=== PATIENT | female | born 1935 | race Caucasian/White ===

== ENCOUNTER → 2016-06-19 | Outpatient (CLI) | payer OTHER ==
[~2016-06-19] MED LIST: AMLO-114 PO; AMOX500C3 PO; ASPI-461 PO; ATOR-54 PO; BIOT1CAP3 PO; CHOL2000 PO; CLOP1TAB5 PO; DVN80 PO; SULF800T23 PO
--- NOTE | 2016-06-19 09:31 | DIAGNOSTIC IMAGING REPORT ---
LUMBAR SPINE 5 VIEWS HISTORY: Lower back pain. Pseudoclaudication. COMPARISON: None. FINDINGS: There is no fracture. 3 mm of anterolisthesis of L4 and L5 and L5 on S1. Mild disc space and L5-S1. Minimal dextroscoliosis. The sacrum appears intact. Moderate to severe facet degenerative changes at L4-L5 and L5-S1. IMPRESSION: 1. No fractures within the lumbar spine. 2. Grade I anterolisthesis of L4 on L5 and L5 on S1. 3. Mild disc space narrowing at L5-S1. 4. Moderate to severe facet degenerative changes seen within the lower lumbar spine. Electronically signed by: Noah Bates M.D. 06/19/2016 9:30 AM Dictated Date/Time: 06/19/2016 9:26 AM
== END | disposition home or self-care (01) ==
LOC: C.RADBC 08:58
PROVIDERS: ATTEND Family Medicine
DX: M48.06 Spinal stenosis, lumbar region (principal); M47.896 Other spondylosis, lumbar region

== ENCOUNTER → 2016-08-21 | Outpatient (CLI) | payer OTHER ==
[~2016-08-21] VITALS: Ht 162.6 cm; Wt 77.0 kg
[~2016-08-21] MED LIST changes: +NAPR1CAP12 PO; +ULT50X PO
[2016-08-21 14:16] VITALS: Ht 162.6 cm; Wt 77.0 kg
--- NOTE | 2016-08-21 14:54 | PAT Medication Instructions ---
Service Date Aug 21, 2016. Current Home Medication List Amlodipine (Norvasc), 10 MG PO AFTERNOON Amoxicillin (Amoxil), 2,000 MG PO DAILY PRN for PRIOR TO DENTAL PROCEDURES Aspirin (Aspirin), 1 TAB PO QAM Atorvastatin (Lipitor), 20 MG PO HS Biotin (Biotin), 1 CAP PO QAM Cholecalciferol (Vitamin D3), 1 CAP PO QAM Valsartan (Diovan), 80 MG PO AFTERNOON Medication Instructions For Your Scheduled Surgery Amoxicillin (Amoxil), 2,000 MG PO DAILY PRN for PRIOR TO DENTAL PROCEDURES (due to history of knee replacements) - Hold the following medications 24 hours prior to surgery: Valsartan (Diovan), 80 MG PO AFTERNOON - Hold the following medications the morning of surgery: Cholecalciferol (Vitamin D3), 1 CAP PO QAM Biotin (Biotin), 1 CAP PO QAM - Take the following medications the morning of surgery with a sip of water: Aspirin (Aspirin), 81MG TAB PO QAM (okay to continue per surgeon) - Take the following medications as scheduled the afternoon before surgery: Atorvastatin (Lipitor), 20 MG PO HS Amlodipine (Norvasc), 10 MG PO AFTERNOON If you have any questions please call us at [phone] (Muna Linder PA-C) or [phone] or [phone]
[2016-08-21 15:54] LABS: BASO % 0.3 %; BASO ABS # 0.02 K/uL (0-0.2); COMPLETE YES; EOS % 1.5 %; HEMATOCRIT 39.7 % (37-47); IG% 0.3 %; LYMPH % 21.7 %; LYMPH ABS # 1.31 K/uL (1.2-3.4); MEAN CELL VOLUME 90.8 fL (80-100); MEAN CORPUSCULAR HEMOGLOBIN 30.4 pg (25-34); MEAN CORPUSCULAR HGB CONC 33.5 g/dl (32-36); MEAN PLATELET VOLUME 11.1 fL (7.4-10.4); MONO % 10.1 %; NEUT % 66.1 %; PLATELET COUNT 211 K/uL (130-400); RED BLOOD COUNT 4.37 M/uL (4.2-5.4); WHITE BLOOD COUNT 6.04 K/uL (4.8-10.8)
[2016-08-21 16:02] LABS: URINE APPEARANCE CLEAR (CLEAR); URINE BILIRUBIN NEG (NEG); URINE COLOR YELLOW; URINE NITRITE NEG (NEG); URINE SPECIFIC GRAVITY 1.015 (1.000-1.030); UROBILINOGEN NEG (NEG)
[2016-08-21 16:07] LABS: MANUAL MICROSCOPIC REQUIRED? NO; REVIEW REQ? NO
[2016-08-21 16:08] LABS: INR 0.9 (0.9-1.1); PROTHROMBIN TIME (PATIENT) 10.1 SECONDS (9.0-12.0)
[2016-08-21 16:46] LABS: BUN/CREATININE RATIO 25.3 (10-20); CALCIUM 9.4 mg/dl (8.5-10.1); CREATININE 0.77 mg/dl (0.60-1.20)
== END | disposition home or self-care (01) ==
LOC: C.LAB 08:00 → EDSTATUS 09-21 11:08
PROVIDERS: ATTEND Orthopaedic Surgery
DX: Z01.818 Encounter for other preprocedural examination (principal)

== ENCOUNTER → 2016-08-21 | Outpatient (CLI) | payer OTHER | END | disposition home or self-care (01) | LOC: C.CTS 13:04 | PROVIDERS: ATTEND Orthopaedic Surgery | DX: Z01.818 Encounter for other preprocedural examination (principal); M19.011 Primary osteoarthritis, right shoulder ==

== ENCOUNTER → 2016-09-25 | Outpatient (CLI) | payer OTHER ==
[~2016-09-25] MED LIST changes: -CLOP1TAB5 PO
--- NOTE | 2016-09-25 12:43 | DIAGNOSTIC IMAGING REPORT ---
LEFT HAND MIN 3 VIEWS ROUTINE CLINICAL HISTORY: R22.32 Localized swelling on left [id number] pain. Edema. COMPARISON: None. FINDINGS: Considerable degenerative change throughout. This includes all interphalangeal joints as well as metacarpophalangeal joints. Severe degenerative change first as well as second carpometacarpal joint. IMPRESSION: Significant degenerative change throughout the hand and wrist. Electronically signed by: Balwinder Tovar M.D. 09/25/2016 12:41 PM Dictated Date/Time: 09/25/2016 12:38 PM
== END | disposition home or self-care (01) ==
LOC: C.RADBC 12:06
PROVIDERS: ATTEND Family Medicine
DX: R22.32 Localized swelling, mass and lump, left upper limb (principal)

== ENCOUNTER 2016-09-26 17:24 | Emergency (ER) | payer OTHER ==
[~2016-09-26] VITALS: Ht 162.6 cm; Wt 77.7 kg
[~2016-09-26 17:24] MED LIST changes: -NAPR1CAP12 PO; -SULF800T23 PO; -ULT50X PO
[2016-09-26 17:29] VITALS: TEMP 36.6; Ht 162.6 cm; Wt 77.7 kg
--- NOTE | 2016-09-26 18:45 | DIAGNOSTIC IMAGING REPORT ---
LEFT HAND MIN 3 VIEWS ROUTINE CLINICAL HISTORY: l hand pain swelling pain. Edema. COMPARISON: None. DISCUSSION: Generalized degenerative change throughout. Soft tissue edema. No evidence for fracture or dislocation. IMPRESSION: Considerable degenerative change. Soft tissue edema. No acute bony abnormality. Electronically signed by: Balwinder Tovar M.D. 09/26/2016 6:44 PM Dictated Date/Time: 09/26/2016 6:42 PM
[2016-09-26] MEDS ORDERED: SULFAMETHOXAZOLE/TRIMETHOPRIM DS 800/160MG TAB PO STA (18:55)
[2016-09-26] MEDS ORDERED: SULF800T23 PO (18:58)
[2016-09-26 19:13] VITALS: BP 176/86; PULSE 72; O2SAT 96
--- NOTE | 2016-09-26 19:25 | EMERGENCY ROOM VISIT NOTE ---
History Report prepared by Nataly: Bushra Mckenzie Under the Supervision of: Dr. Edgar Linares D.O. First contact with patient: 17:33 Chief Complaint: SWELLING TO EXTREMITY Stated Complaint: SWELLING TO LEFT HAND, CANNOT GET HER RING OFF History of Present Illness The patient is a 81 year old female who presents to the Emergency Room with complaints of worsening left hand swelling starting 3 days POLICY INTERN. The patient states that she was seen by her PCP yesterday and was prescribed Keflex for the swelling but since seeing him she noticed it has worsened causing her to come into the ED. The patient states that she was also worried about the swelling near her wedding rings and them needing to be removed. The patient states she does have some finger pain and some numbness, the worse occurring on her middle finger. The patient denies any recent fevers. She states that she does not remember hitting her hand on anything or any trauma. The patient denies any abdominal pain, shortness of breath or chest pain. The patient states that she wrapped the hand last night and states it worsened the swelling and states that ice and heat did not improve her swelling. The patient states that when she moves her hand more it improves her pain. No fevers. Source of History: patient Onset: 3 days POLICY INTERN Position: hand (left) Timing: worsening Modifying Factors (Worsening): other (compression) Modifying Factors (Relieving): movement Associated Symptoms: + numbness (in fingers.), No abdominal pain, No chest pain Note: Associated symptoms: finger pain. Review of Systems See HPI for pertinent positives & negatives. A total of 10 systems reviewed and were otherwise negative. Past Medical & Surgical Surgical Problems: (1) History of bilateral knee replacement Family History FH: cancer Hypertension Social History Smoking Status: Former Smoker Marital Status: Housing Status: lives with significant other Occupation Status: retired Current/Historical Medications Scheduled Amlodipine (Norvasc), 10 MG PO AFTERNOON Aspirin (Aspirin), 1 TAB PO QAM Atorvastatin (Lipitor), 20 MG PO HS Biotin (Biotin), 1 CAP PO QAM Cholecalciferol (Vitamin D3), 1 CAP PO QAM Sulfamethoxazole-Trimethoprim (Bactrim Ds 800MG/160MG), 1 TAB PO BID Valsartan (Diovan), 80 MG PO AFTERNOON Scheduled PRN Amoxicillin (Amoxil), 2,000 MG PO DAILY PRN for PRIOR TO DENTAL PROCEDURES Allergies Coded Allergies: Acetaminophen (Verified Allergy, Mild, RASH, 08/21/16) Adhesives (Verified Allergy, Mild, ITCHY AND SORE, 08/21/16) Meperidine (Verified Allergy, Mild, RASH, 08/21/16) Hydrocodone (Verified Adverse Reaction, Mild, RASH, 08/21/16) Oxycodone (Verified Adverse Reaction, Mild, N/V, 08/21/16) Physical Exam Vital Signs Date Time Temp Pulse Resp B/P Pulse Ox O2 Delivery O2 Flow Rate FiO2 09/26/16 19:13 72 20 176/86 96 09/26/16 17:29 36.6 77 17 153/87 97 Room Air Physical Exam GENERAL: Sitting up in bed, no acute distress, non toxic EYE EXAM: normal conjunctiva OROPHARYNX: no exudate, no erythema, lips, buccal mucosa, and tongue normal and mucous membranes are moist NECK: supple, no nuchal rigidity, no adenopathy, non-tender LUNGS: Clear to auscultation. Normal chest wall mechanics HEART: no murmurs, S1 normal and S2 normal ABDOMEN: abdomen soft, non-tender, normo-active bowel sounds, no masses, no rebound or guarding. SKIN: no rashes and no bruising UPPER EXTREMITIES: Left upper extremity on the dorsal aspect of hand, edema from 2nd, 3rd, and 4th metacarpal, able to flex and extend digits, radial pulse 2/4, gross sensation intact, scant erythema, no induration, skin is intact, ring on 4th digit with compression of the skin. Good cap refill. LOWER EXTREMITIES: No pitting edema. NEURO EXAM: Normal sensorium Medical Decision & Procedures ER Provider Diagnostic Interpretation: Radiology results as stated below per my review and the radiologist's interpretation: LEFT HAND MIN 3 VIEWS ROUTINE CLINICAL HISTORY: l hand pain swelling pain. Edema. COMPARISON: None. DISCUSSION: Generalized degenerative change throughout. Soft tissue edema. No evidence for fracture or dislocation. IMPRESSION: Considerable degenerative change. Soft tissue edema. No acute bony abnormality. Electronically signed by: Balwinder Tovar M.D. 09/26/2016 6:44 PM Dictated Date/Time: 09/26/2016 6:42 PM ED Course ED COURSE: Vital signs were reviewed and showed hypertensive. The patients medical record was reviewed The above diagnostic studies were performed and reviewed. ED treatments and interventions as stated above. 1733: The patient was evaluated in room C6. A complete history and physical examination was performed. 1804: I reevaluated the patient and she was having the ring removed currently. 1854: Ordered Trimethoprim/Sulfamethoxazole 1 tab PO. 1906: Upon reevaluation, the patient is resting comfortably.I discussed my findings with the patient and she understands and agrees with the treatment plan.Based on the patients age, coexisting illnesses, exam and lab findings the decision to treat as an outpatient was made.The patient remained stable while under my care.The patient appeared well at the time of discharge. Medical Decision Differential diagnosis includes etiologies such as cellulitis, abscess, MRSA infection, DVT, necrotizing fasciitis, dermatitis, drug eruption, as well as others were entertained. Patient is an 81-year-old female who presents the ER for swelling on the dorsal aspect of her left hand which started Saturday. She was placed on Keflex on Saturday. No trauma on hand. There is faint erythema overlying the dorsal aspect. No signs of tenosynovitis. No fevers. Patient is otherwise well- appearing. Rings were removed. Patient notes that while in the ER that this has decreased. I gave her prescription for Bactrim to start in 24 hours if the swelling does not continue to improve. I do favor this is likely trauma related as there is no obvious signs of overt cellulitis. Patient was happy with this and she was discharged follow-up with her primary care doctor. Discussed with Pt concerning signs and symptoms to watch out for. Pt was instructed to follow up with their PCP and discussed with the patient their option to return to the ED at anytime for persistent or worsening symptoms. The appropriate anticipatory guidance and out-patient management, including indications for return to the emergency department, were explained at length to the patient and understood. Impression Primary Impression: Swelling of left hand Additional Impression: Cellulitis Scribe Attestation The scribe's documentation has been prepared under my direction and personally reviewed by me in its entirety. I confirm that the note above accurately reflects all work, treatment, procedures, and medical decision making performed by me. Departure Information Dispostion Home / Self-Care Prescriptions Sulfamethoxazole-Trimethoprim (Bactrim Ds 800MG/160MG) 1 Tab Tab 1 TAB PO BID, #10 TAB Prov: Edgar Linares, DO 5/10/17 Referrals Mack Eller D[facility] (PCP) Forms HOME CARE DOCUMENTATION FORM, IMPORTANT VISIT INFORMATION, WORK / SCHOOL INSTRUCTIONS Patient Instructions My [facility] Additional Instructions Please follow up with your primary care doctor with in the next 24 hours. Any worsening of your symptoms, please return to the ED immediately. This includes fevers greater than 100.4, unable to close her hand, worsening pain, numbness in her digits, or any other concerning signs or symptoms from your standpoint. Please wait 24 hours prior to starting Bactrim to see if you have any improvement in swelling on Keflex. If it does not improve please start Bactrim in 24 hours. Problem Qualifiers Additional Impression: Cellulitis Site of cellulitis: unspecified site Qualified Codes: L03.90 - Cellulitis, unspecified
[2017-02-20] MEDS ORDERED: NAPR1CAP12 PO (12:06)
[2017-03-23] MEDS ORDERED: ULT50X PO (09:13)
== END 2016-09-26 19:14 | disposition home or self-care (01) ==
LOC: C.EDB 17:28 → C.EDC 19:14
DX: L03.114 Cellulitis of left upper limb (principal); Z87.891 Personal history of nicotine dependence; Z96.659 Presence of unspecified artificial knee joint; Z79.82 Long term (current) use of aspirin; Z79.899 Other long term (current) drug therapy; Z88.5 Allergy status to narcotic agent; Z88.6 Allergy status to analgesic agent; Z88.8 Allergy status to other drugs, medicaments and biological substances

== ENCOUNTER → 2016-11-09 | Outpatient (CLI) | payer OTHER ==
[~2016-11-09] MED LIST changes: +NAPR1CAP12 PO; +ULT50X PO
--- NOTE | 2016-11-09 09:33 | DIAGNOSTIC IMAGING REPORT ---
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 COMPARISON STUDY: 04/24/2015 FINDINGS: The cardiac and mediastinal contours remain stable. There has been further interval decrease in the conspicuity of the right midlung nodule. There is no acute parenchymal consolidation. There are no pleural effusions.[ IMPRESSION: Further decrease in the conspicuity of the right midlung zone nodule. No acute findings. Electronically signed by: Alex Hays M.D. 11/09/2016 9:32 AM Dictated Date/Time: 11/09/2016 9:27 AM
== END | disposition home or self-care (01) ==
LOC: C.RADBC 09:04
PROVIDERS: ATTEND Family Medicine
DX: J84.10 Pulmonary fibrosis, unspecified (principal)

== ENCOUNTER → 2017-09-03 | Outpatient (CLI) | payer OTHER | END | disposition home or self-care (01) | LOC: C.PATHSPEC 17:16 | PROVIDERS: ATTEND Physician Assistant | DX: L57.0 Actinic keratosis (principal); L82.0 Inflamed seborrheic keratosis ==

== ENCOUNTER 2020-03-14 10:56 | Observation (INO) ==
[2020-03-14] MEDS ORDERED: SODIUM CHLORIDE 0.9% 1000ML 1,000 ML IV ONE (12:21)
--- NOTE | 2020-03-14 12:21 | Emergency Department Note ---
Impression & Plan Stroke-like symptoms, Chronic generalized pain ED Provider Note NAME: AARON MAZARIEGOS AGE: 85 SEX: F : 1935 ARRIVES VIA: Ambulance INFORMANT: Patient, ED PROVIDER(S): Tesfaye Moerjon MD Chief Complaint: Confusion, weakness, pain HPI: Patient does present with the possibility of confusion which has been love oing for several weeks. The patient does have a known history of expressive aphasia and word finding difficulty. The patient believes that she finds it difficult to explain what is going on. Patient states that she wants to . The patient states that she has had pain in a bit of everything she says. The patient denies any nausea or vomiting. The patient has had decreased p.o. intake and decreased urine output and bowel movements but the patient does not complain of any abdominal pain or vomiting. No fevers or chills. The patient denies any chest pains or shortness of breath. Non-smoker. The patient did have a Covid test completed on Saturday. Patiently currently resides in [facility]. The patient states that nothing is made her symptoms better or worse. Patient believes that she took something for pain this morning but it is not improved her symptoms. ROS: See HPI for pertinent positives and negatives. A total of 10 systems were reviewed and otherwise negative. Past medical history: See below Surgical history: See below Social history: See below Physical Exam: GENERAL: Wearing glasses and a mask. NAD, non-toxic. EYE EXAM: Normal conjunctiva. PERRL, no anisocoria and EOM's grossly intact w/o pain. NECK: Supple, no nuchal rigidity, no adenopathy, non-tender. No signs of meningismus. LUNGS: Clear to auscultation. Normal chest wall mechanics. HEART: NSR, no MRG. ABDOMEN: Abdomen soft, non-tender, normo-active bowel sounds, no masses, no rebound or guarding. BACK: No CVA TTP. SKIN: No rashes and no bruising. UPPER EXTREMITIES: Upper extremities are grossly normal. LOWER EXTREMITIES: Grossly normal, no edema. NEURO EXAM: A&O x3, cranial nerves II-XII grossly intact, expressive aphasia, moves all 4 extremities on command w/o issue. Differential diagnoses: Infection, dehydration, metabolic abnormality, hypo/hyperglycemia, electrolyte disturbance, anemia, hypoxia, cardiac sources, intracerebral event, toxicologic, neurologic, as well as other pathologies. Course: Patient was seen and evaluated the bedside. Full history physical exam was performed. EKG: Indication: Weakness Normal sinus rhythm, rate of 69, normal intervals, left axis deviation, no ST changes, Q waves inferiorly. No significant change from prior EKG September 10, 2019. Imaging Studies: Radiology results as stated below per my review in the radiologist's interpretation: XR chest 1V portable CLINICAL HISTORY: weakness COMPARISON STUDY: 09/10/2019 FINDINGS: The cardiac and mediastinal contours are normal. There is no evidence of focal pulmonary consolidation. There is no evidence of failure. No pleural effusions are visualized.[There are postsurgical changes within the right midlung zone. Arthritic changes are present within the left shoulder. There are postsurgical changes of a total right shoulder arthroplasty. IMPRESSION: No active disease in the chest. ACT 112: Negative or not required by law. Electronically signed by: Alex Hays M.D. 03/14/2020 12:45 PM Dictated: 03/14/20 1245 Transcribed: 03/14/[address] head/brain wo con CLINICAL HISTORY: Weakness. Possible acute stroke. Aphasia COMPARISON STUDY: 09/10/2019, MRI the brain dated 12/28/2019 TECHNIQUE: Axial CT of the brain is performed from the vertex to the skull base. IV contrast was not administered for this examination. A dose lowering technique was utilized adhering to the principles of ALARA. CT DOSE: 729.78 mGycm FINDINGS: No intra or extra-axial mass lesions are visualized. There is subtle hypodensity within the left temporal region, possibly secondary to an acute infarct. An MRI should be considered in follow-up.. There is no evidence of midline shift. There is no acute hemorrhage. No calvarial fractures are visualized. There are patchy minor matter hypodensities likely on a small vessel basis. There is no evidence of pathologic ventricular dilatation. There are chronic inflammatory changes within the left maxillary sinus. There is calcific densities present raising the possibility of a fungal etiology. IMPRESSION: 1. Subtle hypodensity within the left temporal region, possibly representing an acute/subacute infarct. An MRI should be considered in follow-up. 2. No evidence of acute hemorrhage 3. Chronic inflammatory changes within the left maxillary sinus. ACT 112: Negative or not required by law. Electronically signed by: Alex Hays M.D. 03/14/2020 1:34 PM Dictated: 03/14/20 1330 Transcribed: 03/14/201329 AP PELVIS AND BILATERAL HIPS 3 VIEWS CLINICAL HISTORY: pain COMPARISON: None. DISCUSSION: No acute fractures are visualized. There are bilateral vascular stents in the region the superficial femoral arteries. Degenerative changes are present within the lumbar spine. There are mild degenerative changes within the hips. No destructive lesions are evident. IMPRESSION: 1. Mild degenerative change 2. No fractures identified ACT 112: Negative or not required by law. Electronically signed by: Alex Hays M.D. 03/14/2020 12:50 PM Dictated: 03/14/20 1249 Transcribed: 03/14/201248 Cardiac monitoring: An order was placed for continuous cardiac monitoring. The monitor shows a rate of 65 with sinus rhythm. MDM: Patient does present with concern for possible confusion as well as all over body pain. Patient has a normal white count H&H and platelet count. Kidney function is unremarkable with mild prerenal azotemia. The patient did receive IV fluids. No elevation magnesium 2.5. Electrolytes unremarkable. Chest x-ray is clear. EKG is unchanged from prior. I did contacted the porter sample case given the patient's concerns and having feelings as though she wanted to . The patient was discussed by the porter sample case with the and this is reportedly what she has said out of frustration she has not had any intent. Urinalysis is negative for infection or blood. The patient CT did show the concern for possible subtle hypodensity within the left temporal region. Given this as well as the prior history of TIA and stroke. Patient was ordered dysphagia screen and by mouth aspirin if she passed the dysphagia screening. The patient was admitted to the medicine service under Dr. Victor Manuel DO. Past Med/Surg History Medical History Colon cancer Hyperlipidemia Hypertension Lung mass Osteoarthritis of left knee Osteoarthritis of right knee Osteoarthritis of shoulder Peripheral vascular disease Spinal stenosis Social History Smoking Status: Former smoker Feels Safe at Home: Yes Allergies Allergies Allergy/AdvReac Type Severity Reaction Status Date / Time meperidine Allergy Mild RASH Verified 03/14/20 13:24 Bactrim Allergy Unknown rash Verified 03/22/17 08:25 doxycycline Allergy Unknown rash Verified 03/14/20 13:24 sulfamethoxazole Allergy Unknown rash Verified 03/14/20 13:24 trimethoprim Allergy Unknown rash Verified 03/14/20 13:24 hydrocodone AdvReac Mild RASH Verified 03/14/20 13:24 oxycodone AdvReac Mild N/V Verified 03/14/20 13:24 Percocet TABS Allergy Unknown Nausea Uncoded 03/14/20 13:24 Vicodin TABS Allergy Unknown Nausea Uncoded 03/14/20 13:24 Home Meds Home Medications Medication Instructions Recorded Confirmed amoxicillin 500 mg tablet 500 mg PO UD PRN 07/08/19 03/14/20 aspirin 81 mg tablet 81 mg PO DAILY 07/08/19 03/14/20 tramadol 50 mg tablet 50 mg PO Q4H PRN tab 07/08/19 03/14/20 naproxen sodium [Aleve] 220 mg PO BID PRN 09/10/19 03/14/20 atorvastatin 80 mg PO DAILY 03/14/20 03/14/20 Previous Rx's Medication Instructions Recorded amlodipine 10 mg tablet 10 mg PO DAILY #90 tab 01/28/19 losartan 50 mg tablet 50 mg PO DAILY #90 tab 04/29/19 Results & Data (ED) Vital Signs Vital Signs - 24 hr 03/14/20 11:05 03/14/20 11:25 03/14/20 11:30 Temperature 36.9 C Temperature Source Oral Oral Pulse Rate 72 72 Pulse Rate [Right Finger] 72 Pulse Rate from SpO2 Sensor 73 Pulse Rhythm Regular Pulse Rhythm [Right Finger] Regular Pulse Strength [Right Finger] Normal Respiratory Rate 16 18 20 Respiratory Effort / Characteristics Non-Labored Spontaneous Respiratory Depth Normal Respiratory Pattern Regular Blood Pressure Blood Pressure [Right Arm] 136/65 Blood Pressure Mean Blood Pressure Mean [Right Arm] 88 Blood Pressure Position [Right Arm] Sitting Pulse Oximetry 97 96 97 Oxygen Delivery Method Room Air Room Air Sepsis Recent Fever Within 48 Hours No Sepsis New/Unexplained Change in Mental Status Yes Sepsis Action Taken by Nursing No Action Required 03/14/20 11:38 03/14/20 12:00 03/14/20 13:02 Temperature Temperature Source Pulse Rate 69 65 Pulse Rate [Right Finger] 86 Pulse Rate from SpO2 Sensor 70 65 Pulse Rhythm Pulse Rhythm [Right Finger] Pulse Strength [Right Finger] Respiratory Rate 22 20 18 Respiratory Effort / Characteristics Respiratory Depth Respiratory Pattern Blood Pressure 116/69 128/74 Blood Pressure [Right Arm] 136/83 Blood Pressure Mean 73 104 Blood Pressure Mean [Right Arm] 100 Blood Pressure Position [Right Arm] Pulse Oximetry 96 96 97 Oxygen Delivery Method Room Air Room Air Room Air Sepsis Recent Fever Within 48 Hours Sepsis New/Unexplained Change in Mental Status Sepsis Action Taken by Nursing 03/14/20 13:46 03/14/20 14:00 Temperature Temperature Source Pulse Rate 73 61 Pulse Rate [Right Finger] Pulse Rate from SpO2 Sensor 71 Pulse Rhythm Pulse Rhythm [Right Finger] Pulse Strength [Right Finger] Respiratory Rate 24 23 Respiratory Effort / Characteristics Respiratory Depth Respiratory Pattern Blood Pressure 133/72 131/65 Blood Pressure [Right Arm] Blood Pressure Mean 93 97 Blood Pressure Mean [Right Arm] Blood Pressure Position [Right Arm] Pulse Oximetry 96 Oxygen Delivery Method Room Air Sepsis Recent Fever Within 48 Hours Sepsis New/Unexplained Change in Mental Status Sepsis Action Taken by [facility] Medications Current Medication List: was personally reviewed by me Laboratory Data Attestation: I reviewed the patient's lab results. Result diagrams: 03/14/20 11:15 03/14/20 11:15 Lab Results 03/14/20 03/14/20 03/14/20 Range/Units 11:15 11:15 11:15 WBC 6.48 (4.8-10.8) K/uL RBC 4.33 (4.2-5.4) M/uL Hgb 13.4 (12.0-16.0) g/dL Hct 40.3 (37-47) % MCV 93.1 (80-100) fL MCH 30.9 (25-34) pg MCHC 33.3 (32-36) g/dL RDW Std Deviation 48.6 H (36.4-46.3) fL RDW Coeff of Ranulfo 14.3 (11.5-14.5) % Plt Count 231 (130-400) K/uL MPV 11.3 H (7.4-10.4) fL Immature Gran % (Auto) 0.3 % Neut % (Auto) 69.3 % Lymph % (Auto) 17.7 % [place] % (Auto) 11.3 % Eos % (Auto) 1.2 % Baso % (Auto) 0.2 % Neut # (Auto) 4.49 (1.4-6.5) K/uL Lymph # (Auto) 1.15 L (1.2-3.4) K/uL [place] # (Auto) 0.73 H (0.11-0.59) K/uL Eos # (Auto) 0.08 (0-0.5) K/uL Baso # (Auto) 0.01 (0-0.2) K/uL Immature Gran # (Auto) 0.02 (0.00-0.02) K/uL PT 10.4 (9.0-12.0) Seconds INR 1.0 (0.9-1.1) Sodium 139 (136-145) mmol/L Potassium 3.5 (3.5-5.1) mmol/L Chloride 108 H (98-107) mmol/L Carbon Dioxide 23 (21-32) mmol/L Anion Gap 8.0 (3-11) BUN 23 H (7-18) mg/dl Creatinine 0.95 (0.6-1.2) mg/dl Est Cr Clr Drug Dosing 39.8 ml/min Est GFR ( Amer) 62.9 Est GFR (Non-Af Amer) 54.2 BUN/Creatinine Ratio 24.6 H (10-20) Glucose 141 H (70-99) mg/dl POC Glucose (70-99) mg/dl Calcium 9.5 (8.5-10.1) mg/dl Magnesium 2.5 H (1.8-2.4) mg/dl Total Bilirubin 1.2 H (0.2-1) mg/dl AST 16 (15-37) U/L ALT 22 (12-78) U/L Alkaline Phosphatase 98 (45-117) U/L Troponin I < 0.015 (0-0.045) ng/ml Total Protein 7.3 (6.4-8.2) gm/dl Albumin 3.4 (3.4-5.0) gm/dl Globulin 3.9 (2.5-4.0) gm/dl Albumin/Globulin Ratio 0.9 (0.9-2) TSH 1.410 (0.300-4.500) uIu/ml Urine Color Urine Appearance (Clear) Urine pH (4.5-7.5) Ur Specific [place] (1.000-1.030) Urine Protein (Negative) Urine Glucose (UA) (Negative) Urine Ketones (Negative) Urine Blood (Negative) Urine Nitrite (Negative) Urine Bilirubin (Negative) Urine Urobilinogen (Negative) Ur Leukocyte Esterase (Negative) Urine RBC (0-4) /hpf Urine WBC (0-5) /hpf Ur Epithelial Cells (0-5) /lpf Urine Bacteria (Negative) 03/14/20 03/14/20 Range/Units 11:18 13:04 WBC (4.8-10.8) K/uL RBC (4.2-5.4) M/uL Hgb (12.0-16.0) g/dL Hct (37-47) % MCV (80-100) fL MCH (25-34) pg MCHC (32-36) g/dL RDW Std Deviation (36.4-46.3) fL RDW Coeff of Ranulfo (11.5-14.5) % Plt Count (130-400) K/uL MPV (7.4-10.4) fL Immature Gran % (Auto) % Neut % (Auto) % Lymph % (Auto) % [place] % (Auto) % Eos % (Auto) % Baso % (Auto) % Neut # (Auto) (1.4-6.5) K/uL Lymph # (Auto) (1.2-3.4) K/uL [place] # (Auto) (0.11-0.59) K/uL Eos # (Auto) (0-0.5) K/uL Baso # (Auto) (0-0.2) K/uL Immature Gran # (Auto) (0.00-0.02) K/uL PT (9.0-12.0) Seconds INR (0.9-1.1) Sodium (136-145) mmol/L Potassium (3.5-5.1) mmol/L Chloride (98-107) mmol/L Carbon Dioxide (21-32) mmol/L Anion Gap (3-11) BUN (7-18) mg/dl Creatinine (0.6-1.2) mg/dl Est Cr Clr Drug Dosing ml/min Est GFR ( Amer) Est GFR (Non-Af Amer) BUN/Creatinine Ratio (10-20) Glucose (70-99) mg/dl POC Glucose 132 H (70-99) mg/dl Calcium (8.5-10.1) mg/dl Magnesium (1.8-2.4) mg/dl Total Bilirubin (0.2-1) mg/dl AST (15-37) U/L ALT (12-78) U/L Alkaline Phosphatase (45-117) U/L Troponin I (0-0.045) ng/ml Total Protein (6.4-8.2) gm/dl Albumin (3.4-5.0) gm/dl Globulin (2.5-4.0) gm/dl Albumin/Globulin Ratio (0.9-2) TSH (0.300-4.500) uIu/ml Urine Color Yellow Urine Appearance Clear (Clear) Urine pH 6.0 (4.5-7.5) Ur Specific [place] 1.015 (1.000-1.030) Urine Protein Negative (Negative) Urine Glucose (UA) Negative (Negative) Urine Ketones Negative (Negative) Urine Blood Negative (Negative) Urine Nitrite Negative (Negative) Urine Bilirubin Negative (Negative) Urine Urobilinogen Negative (Negative) Ur Leukocyte Esterase Trace H (Negative) Urine RBC 0-4 (0-4) /hpf Urine WBC 0-5 (0-5) /hpf Ur Epithelial Cells 0-5 (0-5) /lpf Urine Bacteria Negative (Negative) Administered Medications Discontinued Medications Aspirin (Aspirin Chew 324 Mg) 324 mg PO NOW STA Stop: 03/14/20 13:42 Last Admin: 03/14/20 14:04 Dose: 324 mg Documented by: [id number] Sodium Chloride (Nss 1000ml) 1,000 mls @ 999 mls/hr IV .Q1H1M ONE Stop: 03/14/20 13:21 Last Admin: 03/14/20 13:03 Dose: 999 mls/hr Documented by: [id number] Discharge Plan Visit Data Chief Complaint: Illness Stated Complaint: ILLNESS ED Provider: Tesfaye Morejon Discharge Problem: Stroke-like symptoms, Chronic generalized pain Forms Stand Alone Forms: My [facility] [employer] Prescriptions Prescriptions: No Action amlodipine 10 mg tablet 10 mg PO DAILY Qty: 90 RF: 3 losartan 50 mg tablet 50 mg PO DAILY Qty: 90 RF: 3 amoxicillin 500 mg tablet 500 mg PO UD PRN (Reason: Dentist Appointments) RF: 0 aspirin 81 mg tablet 81 mg PO DAILY RF: 0 tramadol 50 mg tablet 50 mg PO Q4H PRN (Reason: Pain) RF: 0 naproxen sodium [Aleve] 220 mg Tablet 220 mg PO BID PRN (Reason: Pain) RF: 0 atorvastatin 80 mg tablet 80 mg PO DAILY RF: 0
[2020-03-14 12:29] LABS: Basophils # (auto) 0.01 K/uL (0-0.2); Basophils % (auto) 0.2 %; Eosinophils # (auto) 0.08 K/uL (0-0.5); Eosinophils % (auto) 1.2 %; Hematocrit (blood only) 40.3 % (37-47); Hemoglobin 13.4 g/dL (12.0-16.0); Immature Granulocytes # (auto) 0.02 K/uL (0.00-0.02); Immature Granulocytes % (auto) 0.3 %; Lymphocytes # (auto) 1.15 K/uL (1.2-3.4); Lymphocytes % (auto) 17.7 %; Mean Corpuscular Hemoglobin 30.9 pg (25-34); Mean Corpuscular Hgb Conc 33.3 g/dL (32-36); Mean Corpuscular Volume 93.1 fL (80-100); Mean Platelet Volume 11.3 fL (7.4-10.4); Monocytes # (auto) 0.73 K/uL (0.11-0.59); Monocytes % (auto) 11.3 %; Neutrophils # (auto) 4.49 K/uL (1.4-6.5); Neutrophils % (auto) 69.3 %; Platelet Count 231 K/uL (130-400); RDW Coefficient of Variation 14.3 % (11.5-14.5); RDW Standard Deviation 48.6 fL (36.4-46.3); Red Blood Count 4.33 M/uL (4.2-5.4); White Blood Count 6.48 K/uL (4.8-10.8)
[2020-03-14 12:37] LABS: Prothrombin Time 10.4 Seconds (9.0-12.0)
[2020-03-14 12:40] LABS: Alanine Aminotransferase 22 U/L (12-78); Albumin Level 3.4 gm/dl (3.4-5.0); Aspartate Aminotransferase 16 U/L (15-37); BUN Creatinine Ratio 24.6 (10-20); Blood Urea Nitrogen 23 mg/dl (7-18); Calcium 9.5 mg/dl (8.5-10.1); Carbon Dioxide 23 mmol/L (21-32); Chloride 108 mmol/L (98-107); Creatinine Clr Calc Pharmacy 39.8 ml/min; Est GFR (African American) 62.9; Est GFR (Non-African American) 54.2; Glucose 141 mg/dl (70-99); Magnesium 2.5 mg/dl (1.8-2.4); Potassium 3.5 mmol/L (3.5-5.1); Sodium 139 mmol/L (136-145)
--- NOTE | 2020-03-14 12:47 | XRay Report ---
XR chest 1V portable CLINICAL HISTORY: weakness COMPARISON STUDY: 09/10/2019 FINDINGS: The cardiac and mediastinal contours are normal. There is no evidence of focal pulmonary co nsolidation. There is no evidence of failure. No pleural effusions are visualized.[There are postsurg ical changes within the right midlung zone. Arthritic changes are present within the left shoulder. T here are postsurgical changes of a total right shoulder arthroplasty. IMPRESSION: No active disease in the chest. ACT 112: Negative or not required by law. Electronically signed by: Alex Hays M.D. 03/14/2020 12:45 PM
[2020-03-14 12:51] LABS: Albumin Globulin Ratio 0.9 (0.9-2); Alkaline Phosphatase 98 U/L (45-117); Bilirubin,Total 1.2 mg/dl (0.2-1); Globulin 3.9 gm/dl (2.5-4.0); Total Protein 7.3 gm/dl (6.4-8.2); Troponin I < 0.015 ng/ml (0-0.045)
--- NOTE | 2020-03-14 12:51 | XRay Report ---
AP PELVIS AND BILATERAL HIPS 3 VIEWS CLINICAL HISTORY: pain COMPARISON: None. DISCUSSION: No acute fractures are visualized. There are bilateral vascular stents in the region the superficial femoral arteries. Degenerative changes are present within the lumbar spine. There are mil d degenerative changes within the hips. No destructive lesions are evident. IMPRESSION: 1. Mild degenerative change 2. No fractures identified ACT 112: Negative or not required by law. Electronically signed by: Alex Hays M.D. 03/14/2020 12:50 PM
[2020-03-14 13:20] LABS: Appearance Urine Clear (Clear); Bilirubin Urine Negative (Negative); Blood Urine Negative (Negative); Color Urine Yellow; Glucose Urine UA Negative (Negative); Ketones Urine Negative (Negative); Leukocyte Esterase Urine Trace (Negative); Nitrite Urine Negative (Negative); Protein Urine Negative (Negative); Specific Gravity Urine 1.015 (1.000-1.030); Urobilinogen Urine Negative (Negative)
[2020-03-14 13:33] LABS: Epithelial Cell Urine 0-5 /lpf (0-5)
[2020-03-14 13:34] LABS: Bacteria Urine Negative (Negative); RBC Urine 0-4 /hpf (0-4); WBC Urine 0-5 /hpf (0-5)
--- NOTE | 2020-03-14 13:36 | CT Scan Report ---
CT head/brain wo con CLINICAL HISTORY: Weakness. Possible acute stroke. Aphasia COMPARISON STUDY: 09/10/2019, MRI the brain dated 12/28/2019 TECHNIQUE: Axial CT of the brain is performed from the vertex to the skull base. IV contrast was not administered for this examination. A dose lowering technique was utilized adhering to the principles of ALARA. CT DOSE: 729.78 mGycm FINDINGS: No intra or extra-axial mass lesions are visualized. There is subtle hypodensity within the left temp oral region, possibly secondary to an acute infarct. An MRI should be considered in follow-up.. There is no evidence of midline shift. There is no acute hemorrhage. No calvarial fractures are visualize d. There are patchy minor matter hypodensities likely on a small vessel basis. There is no evidence of pathologic ventricular dilatation. There are chronic inflammatory changes within the left maxillary sinus. There is calcific densities p resent raising the possibility of a fungal etiology. IMPRESSION: 1. Subtle hypodensity within the left temporal region, possibly representing an acute/subacute infarc t. An MRI should be considered in follow-up. 2. No evidence of acute hemorrhage 3. Chronic inflammatory changes within the left maxillary sinus. ACT 112: Negative or not required by law. Electronically signed by: Alex Hays M.D. 03/14/2020 1:34 PM
[2020-03-14] MEDS ORDERED: ASPIRIN CHEW 324 MG PO STA (13:41)
--- NOTE | 2020-03-14 15:49 | History & Physical Report ---
Date of Service March 14, 2020 Assessment & Plan (1) Stroke-like symptoms: Emma Paz is an 85-year-old female with a past medical history of hypertension, hyperlipidemia, lung mass, colon cancer, and aphasia who presents with increased word finding difficulty. Her history is limited by intermittent expressive aphasia without receptive aphasia or dysarthria. Increased word finding difficulty, acute on chronic expressive aphasia - No receptive aphasia, no dysarthria Echo in 10/2024 no cardiac source of emboli, mild concentric LVH, no evidence of intra-arterial shunt with contrast. EF 55 to 60%, normal spectral Doppler flow pattern CT shows subtle hypodensity in left temporal region? Acute/subacute infarct MRI follow-up pending -Known right ICA stenosis, severe M2 stenosis, perhaps microembolic TIA/chronic emboli Status post aspirin 324 administration in ED NIHSS score of 3 at bedside assessment (+1 for name, difficulty expressing age due to baseline, +2 expressive aphasia/fragmentary expression) TPA not indicated. Slowly progressive deficits over a period of longer than 6 hours, NIHSS <6 - EEG with normal awake and drosy findings, no seizures/epileptiform discharges seen Neurology consulted. Patient had declined neuropsych testing in the past. TSH within normal limits A1c 537% October 2019, repeat pending LDL 52 in October 2019, repeat pending Hypertension Continue amlodipine 10 mg daily Hold losartan 50 mg daily x24 hours Hyperlipidemia Continue atorvastatin 80 mg daily History of shoulder osteoarthritis No pain at time of exam Hold naproxen as needed Hold tramadol 50 mg every 4 hours Tylenol 500 mg every 4 hours as needed Voltaren topical as needed Goals of care Patient is able to express an understanding of her medical condition during HPI, reports she would like to avoid hospitalizations in the future. Discussed harms of avoiding hospitalization including the potential for additional strokes which may produce temporary or permanent deficits which could further impair her mental and physical ability. Patient expresses she is "ready to ", but expresses moderate to poor insight over effect likely nonfatal stroke might have on her quality of life and what she benefits/harms of acute treatment and rescue agent weekly. Recommend continued goals of care discussion prior to discharge. Diet: N.p.o. Disposition: Medical/surgical with telemetry Prophylaxis: SCDs CODE STATUS: DNR/DNI, discussed with patient (2) Memory deficit: (3) Word finding difficulty: (4) TIA (transient ischemic attack): (5) Chronic generalized pain: History of Present Illness Chief Complaint: Confusion, increase difficulty with word finding Primary Care Provider: Tracy Amaro Emma Paz is an 85-year-old female with a past medical history of hypertension, hyperlipidemia, lung mass, colon cancer, and aphasia who presents with increased word finding difficulty. Her history is limited by intermittent expressive aphasia without receptive aphasia or dysarthria. Was first seen in in August 2019 for similar. she was found to have generalized cerebral atrophy and severe vascular disease with CTA head and neck showing right ICA stenosis and severe stenosis of the left M2 with diffuse intracranial atherosclerosis. Recommended for admission at that time left AMA and followed up with neurology as an outpatient. Neurology follow-up History today patient reports a long history of difficulty with reading since childhood, had acute worsening in her ability to speak, find words, and read since several months ago. She feels it is extremely frustrating, and she is unable to express to her or family what is wrong when they ask which she reports is 'just awful.' She endorses intermittent headache in the past, none at time of HPI. Otherwise she denies weakness, numbness, tingling, sensory change, falls, difficulty with balance, dysuria, cough, fever, chills, shortness of breath, difficulty breathing, and chest pain. Eyes tingling in her muscles or joints at time of HPI. Endorses intermittent muscle aches in the past. She endorses decreased appetite for several months. Denies nausea, diarrhea, constipation. She reports she was told that she has had strokelike episodes in the past and was on aspirin, was prescribed Plavix but has not taken it in several months. She did not feel it was helping. Denies other medication changes, takes her medications at home with the assistance of assisted living. She reports that she has been extremely frustrated by her word finding difficulty, and people keep admitted to the hospital when "I would rather be at home, even if I I'm ready." She endorses depressed mood, which she attributes to frustration over her aphasia. Denies SI/HI, AH/VH. No history of diabetes. Medical history: Reviewed Medications: Reviewed. Of note patient by notes was prescribed Plavix, but has not been taking this, and is absent from her med rec. Patient may have self discontinued, will discuss with neuro. Surgical history: Reviewed Allergies: Reviewed Social: Lives in assisted living with her . Denies current tobacco use, endorses prior smoking history quit more than 20 years ago. Denies recent alcohol use, denies recreational drug use. CODE STATUS: DNR/DNI Allergies Allergy/AdvReac Type Severity Reaction Status Date / Time meperidine Allergy Mild RASH Verified 03/14/20 13:24 Bactrim Allergy Unknown rash Verified 03/22/17 08:25 doxycycline Allergy Unknown rash Verified 03/14/20 13:24 sulfamethoxazole Allergy Unknown rash Verified 03/14/20 13:24 trimethoprim Allergy Unknown rash Verified 03/14/20 13:24 hydrocodone AdvReac Mild RASH Verified 03/14/20 13:24 oxycodone AdvReac Mild N/V Verified 03/14/20 13:24 Percocet TABS Allergy Unknown Nausea Uncoded 03/14/20 13:24 Vicodin TABS Allergy Unknown Nausea Uncoded 03/14/20 13:24 Home Medications Home Medications Medication Instructions Recorded Confirmed Type amlodipine 10 mg tablet 10 mg PO DAILY #90 tab 01/28/19 03/14/20 Rx losartan 50 mg tablet 50 mg PO DAILY #90 tab 04/29/19 03/14/20 Rx amoxicillin 500 mg tablet 500 mg PO UD PRN 07/08/19 03/14/20 History aspirin 81 mg tablet 81 mg PO DAILY 07/08/19 03/14/20 History tramadol 50 mg tablet 50 mg PO Q4H PRN tab 07/08/19 03/14/20 History naproxen sodium [Aleve] 220 mg PO BID PRN 09/10/19 03/14/20 History atorvastatin 80 mg PO DAILY 03/14/20 03/14/20 History Past Med/Surg History Medical History Colon cancer Hyperlipidemia Hypertension Lung mass Osteoarthritis of left knee Osteoarthritis of right knee Osteoarthritis of shoulder Peripheral vascular disease Spinal stenosis Social History Smoking Status: Former smoker Second Hand Exposure: No; Do You Dip or Chew Tobacco: No; Hx Alcohol Use: No Hx Substance Use: No Preferred Language: Estonian Communication Ability: Effective Communication Ability Comment: trouble writing at times Weeder Required: No Beliefs That Will Affect Care: None Current Living Situation: Spouse Other Information That Helps Us Care for You: No Feels Safe at Home: Yes Safety Concerns: Feels Safe At This Time Assistive Devices: Cane and Glasses Review of Systems Review of Systems: All systems reviewed & are unremarkable except as noted in HPI & below Constitutional: Denies fever, chills, malaise, weight change Eyes: Denies double vision, vision change, eye pain ENT: Denies ear pain, sore throat, sinus pain Cardiovascular: Denies Chest pain, chest pressure, palpitations, extremity swelling Respiratory: Denies shortness of breath, cough, sputum production, difficulty breathing Gastrointestinal: Denies nausea, vomiting, constipation, diarrhea. Endorses decreased appetite. Genitourinary: Denies pain with urination, urinary urgency. Musculoskeletal: Denies weakness, muscle aches/pain, joint aches/pain Integumentary:Denies rash, lesions, bruising Neurological: Endorses itnermittent headache, none at time of HPI. Denies numbness/tingling/focal weakness. Physical Exam Physical Exam: General: Alert and oriented to name and place only. Cooperative. HEENT: Atraumatic, normocephalic. See below for neuro. Pulm: CTAB A&P. -wheezes, -rales, -rhonchi. Symmetrical chest rise. No increase work of breathing. No respiratory distress. Cardiac: RRR, -mrg. Radial pulses intact and symmetrical. Abdominal: Nontender, nondistended, soft. BS present. CRANIAL NERVES: II: Pupils equal and reactive, no relative afferent pupillary defect, no VF cuts III, IV, : EOM intact, no gaze preference or deviation, no nystagmus. V: normal sensation in V1, V2, and V3 segments bilaterally VII: no asymmetry VIII: normal hearing to speech IX, X: normal palatal elevation, no uvular deviation XI: 5/5 head turn and 5/5 shoulder shrug bilaterally XII: midline tongue protrusion MOTOR: RUE: 5/5 Shoulder internal rotation, external rotation, flexion, extension, abduction, adduction 5/5 Elbow flexion/extension, wrist flexion/extension 5/5 steam train driver strength, finger flexion/extension, interosseus LUE: 5/5 Shoulder internal rotation, external rotation, flexion, extension, abduction, adduction 5/5 Elbow flexion/extension, wrist flexion/extension 5/5 steam train driver strength, finger flexion/extension, interosseus RLE: 5/5 to hip flexion/extension, knee flexion/extension, ankle dorsiflexion/ plantarflexion LLE: 5/5 to hip flexion/extension, knee flexion/extension, ankle dorsiflexion/plantarflexion REFLEXES: 2/4 biceps, achilles DTR without asymmetry. Bilateral flexor planter response, no clonus SENSORY: Normal to touch in upper and lower extremities without deficit or asymmetry No hemineglect COORD: Normal finger to nose and heel to jay, no tremor, no dysmetria STATION: gait/stance not tested Constitutional: WD/WN, vitals as above Eyes: normal visual martínez by confrontation and + anicteric sclerae Neck: normal visual inspection and trachea midline Respiratory: normal respiratory effort, lungs clear to auscultation Cardiovascular: Rate/Rhythm: regular rate and regular rhythm Gastrointestinal (Abdomen): Inspection/Auscultation: abdomen not distended Percussion/Palpation: abdomen soft; abdomen nontender Musculoskeletal: Head/Neck/Chest: normocephalic and head atraumatic Neg for peripheral LE edema, + pedal pulses Skin: no rashes, warm and dry Neurologic: awake; not confused Speech / Cognition: + abnormal speech (words are clear, but occasionally switches to other statements midsentence) Psychiatric: A+Ox3, euthymic affect (frustrated at times) Lymphatic: Exam as done by Cande Rush DO Results & Data Results & Data ([facility]) Vital Signs (Past 12 Hours) Vital Signs Temp Pulse Pulse Resp BP BP Pulse Ox 03/14/20 15:30 62 16 03/14/20 15:01 70 19 160/85 H 03/14/20 14:30 60 21 97 03/14/20 14:00 61 23 131/65 03/14/20 13:46 73 24 133/72 96 03/14/20 13:02 86 18 136/83 97 03/14/20 12:00 65 20 128/74 96 03/14/20 11:38 69 22 116/69 96 03/14/20 11:30 72 20 97 03/14/20 11:25 18 96 03/14/20 11:05 36.9 C 72 72 16 136/65 97 Supervising Physician Co-Signing Physician Notes Pt seen and examined by me. States she does not want to be in the hospital and is frustrated that she is staying overnight. She states that Dr. Ware explained the reasoning and she accepts that, but still frustrated. Denies chest pain or SOB. Tolerating PO without issue. States the expressive aphasia has been a gradually worsening issue. Has MSK pain as well, but no other pain. Family not present during my discussion. Agree with HPI/ROS as noted by resident See above for my exam in PE section Agree with plan as outlined above CT head noted for acute vs subacute CVA concern about possible embolic events given pt's hx MRA head/neck pending c/s neuro Pt with recent ECHO, neg, will not repeat at this time Pt reported starting plavix, but self d/c'd back to aspirin 81mg after 1 month. Pt and live in independent living in [facility]. It was suggested to her that maybe she needs more assistance, however pt states she is not planning to move. Resident Activity Tracking Resident Involvement: Resident Care Provided Care Provided: Adult Hospital Medicine
[2020-03-14] MEDS ORDERED: ACETAMINOPHEN 325 MG TAB PO PRN (18:13)
[2020-03-14] MEDS ORDERED: PHARMACIST DISCHARGE MED REC CONSULT PRN (18:13)
[2020-03-14] MEDS: SODIUM CHLORIDE 0.9% 1000ML 1,000 ML IV SCH (19:19)
[2020-03-14] MEDS: DICLOFENAC SOD 1% GEL 100 GM TUBE EXT SCH ×2 (21:05→23:24)
--- NOTE | 2020-03-14 22:39 | Billing Data ---
Date of Service March 14, 2020 Coding Level of Care Code 44776 OBS Care - Level 3
[2020-03-15] MEDS: DICLOFENAC SOD 1% GEL 100 GM TUBE EXT SCH ×4 (04:13→16:28)
--- NOTE | 2020-03-15 05:28 | Electrocardiogram Report ---
Test Reason : Blood Pressure : / mmHG Vent. Rate : 069 BPM Atrial Rate : 069 BPM P-R Int : 162 ms QRS Dur : 070 ms QT Int : 382 ms P-R-T Axes : 049 -21 029 degrees QTc Int : 409 ms Normal sinus rhythm Possible Left atrial enlargement Inferior infarct , age undetermined Abnormal ECG When compared with ECG of 10-SEP-2019 10:57, Inferior infarct is now Present Confirmed by Juan Luis Rizo ([id number]) on 03/15/2020 5:27:37 AM Referred By: Confirmed By:Juan Luis Rizo
--- NOTE | 2020-03-15 06:53 | Magnetic Resonance Report ---
MRA OF THE NECK WITHOUT CONTRAST CLINICAL HISTORY: ?stroke/aphasia with worsening deficits. COMPARISON STUDY: Carotid ultrasound October 01, 2013. CTA of the neck September 10, 2019. TECHNIQUE: A 1.5 Bambi magnet was utilized. 2-D and 3-D [id number] imaging was performed to obt ain unenhanced MRA of the neck. NASCET criteria were utilized to estimate the degree of carotid sten osis. FINDINGS: This exam is significantly compromised given lack of postcontrast imaging. However, the paris ateral carotid bifurcations are grossly patent. The origins of the great vessels are not well assesse d on this examination. However, visualized portions of the bilateral common carotid, cervical interna l carotid and vertebral arteries are patent. IMPRESSION: 1. Exam compromised given lack of postcontrast imaging however bilateral carotid bifurcations grossly patent. 2. Origins of great vessels suboptimally assessed on this exam. No stenosis within visualized portion s of the bilateral common carotid, cervical internal carotid and vertebral arteries. ACT 112: Negative or not required by law. Electronically signed by: Jon Mcknight M.D. 03/15/2020 6:52 AM
--- NOTE | 2020-03-15 06:54 | Communication Note ---
Date of Service: March 15, 2020 Notified by nursing that pt had an 11 beat run of SVT. Asymptomatic. Resident Activity Tracking Resident Involvement: [employer] Representative Coverage Note Care Provided: Adult Hospital Medicine
--- NOTE | 2020-03-15 07:44 | Magnetic Resonance Report ---
Brain MRA HISTORY: ?stroke/aphasia with worsening deficits, CT hypode TECHNIQUE: 3-D [id number] MRA of the brain was performed without contrast. COMPARISON STUDY: Head CTA 09/10/2019. FINDINGS: Visualized intracranial internal carotid arteries, distal vertebral arteries, and basilar a rtery are widely patent. There is no significant stenosis, occlusion, or aneurysm seen within the paris ateral ACAs, MCAs, or summer counselor. IMPRESSION: No significant stenosis, occlusion, or aneurysm within the [place] of [place]. ACT 112: Negative or not required by law. Electronically signed by: Noah Bates M.D. 03/15/2020 7:43 AM
[2020-03-15] MEDS: SODIUM CHLORIDE 0.9% 1000ML 1,000 ML IV SCH ×3 (08:16→16:06)
[2020-03-15 08:34] LABS: Basophils # (auto) 0.01 K/uL (0-0.2); Basophils % (auto) 0.1 %; Eosinophils # (auto) 0.09 K/uL (0-0.5); Eosinophils % (auto) 1.3 %; Hemoglobin 12.8 g/dL (12.0-16.0); Immature Granulocytes # (auto) 0.02 K/uL (0.00-0.02); Immature Granulocytes % (auto) 0.3 %; Lymphocytes # (auto) 1.32 K/uL (1.2-3.4); Lymphocytes % (auto) 18.7 %; Mean Corpuscular Hemoglobin 30.5 pg (25-34); Mean Corpuscular Hgb Conc 32.8 g/dL (32-36); Mean Corpuscular Volume 93.1 fL (80-100); Mean Platelet Volume 10.9 fL (7.4-10.4); Monocytes # (auto) 0.75 K/uL (0.11-0.59); Monocytes % (auto) 10.6 %; Neutrophils # (auto) 4.87 K/uL (1.4-6.5); Platelet Count 186 K/uL (130-400); RDW Coefficient of Variation 14.4 % (11.5-14.5); RDW Standard Deviation 49.6 fL (36.4-46.3); Red Blood Count 4.19 M/uL (4.2-5.4); White Blood Count 7.06 K/uL (4.8-10.8)
--- NOTE | 2020-03-15 08:35 | Hospitalist Progress Note ---
Date of Service March 15, 2020 Assessment & Plan (1) Acute CVA (cerebrovascular accident): worsening expressive aphasia Head CT with subtle hypodensity within the left temporal region neurology consulted by admitting Checking CTA brain per neurology recs Patient refused MRI brain cont aspirin 81mg, plavix 75mg, lipitor 80mg PO daily PT, OT signed off Needs continued ST after discharge (2) Hypertension: allow permissive hypertension for 24 hours after onset of symptoms goal SBP< 200 can resume norvasc today resume losartan on 03-17 (3) Chronic generalized pain: cont voltaren gel, tylenol prn stop naproxen (4) Memory deficit: per notes, patient refused neuropsych testing likely component of vascular dementia (5) Word finding difficulty: (6) DVT prophylaxis: holding lovenox in setting of acute stroke regular diet CODE DNR/DNI Personally discussed plan of care with patient's at bedside, neurology a nd bedside nursing. Patient refuses to stay in hospital for further workup and is aware of risk of life threatening stroke and . She demands to be discharged. Admission and Anticipated Discharge Date Admission Date: March 14, 2020 Subjective Patient insists on going home. She says that she always has difficulty with her speech and that it is getting worse. She understands that she has had a stroke and that we recommend that she stay in the hospital and be monitored. She r efuses and prefers to complete the workup as an outpatient. PT, OT and speech cleared her to go home. agrees to take patient home. Patient tolerated her meals and is tolerating her oral meds. Denies any other complaints other than her speaking difficulty. Review of Systems Constitutional: no fever, no chills, no fatigue, no weakness, no anorexia, no weight loss and no weight gain Ear, Nose, Mouth, Throat: no nasal congestion, no sore throat and no dysphagia Respiratory: no cough and no dyspnea Cardiovascular: no chest pain, no dyspnea on exertion, no orthopnea and no palpitations Gastrointestinal: no abdominal pain, no nausea, no vomiting, no hematemesis, no dysphagia, no constipation, no diarrhea/loose stools, no blood in stools and no melena Genitourinary: no dysuria, no urinary frequency, no hematuria and no flank pain Musculoskeletal: no back pain, no joint pain, no myalgia and no muscle weakness Integumentary: no rash, no lesions, no skin ulcer, no erythema, no dry skin and no pruritus Neurologic: + abnormal speech; no falls, no localized weakness, no generalized weakness, no numbness, no paresthesia, no tremor(s) and no headache(s) Psychiatric: no depression, no suicidal ideation, no homicidal ideation and no anxiety Endocrine: no cold intolerance and no heat intolerance Hematologic / Lymphatic: no easy bleeding and no easy bruising Physical Exam Constitutional: well developed and well nourished; no acute distress Eyes: PERRL, conjunctivae normal, anicteric sclerae ENMT: Mouth: oral mucous membranes not dry Respiratory: normal respiratory effort; no respiratory distress and no labored breathing Auscultation: lungs clear to auscultation bilaterally; no crackles, no rales, no rhonchi and no wheezes Cardiovascular: Rate/Rhythm: regular rate and regular rhythm Heart Sounds: no murmur and no cardiac rub Vessels: normal peripheral pulses and radial pulses present; no JVD Extremities: no edema Gastrointestinal (Abdomen): Inspection/Auscultation: abdomen normal to inspection and normal bowel sounds; abdomen not distended Percussion/Palpation: abdomen soft; abdomen nontender, no guarding, abdomen not rigid and no hepatosplenomegaly Musculoskeletal: Head/Neck/Chest: normocephalic and head atraumatic Spine: no cervical spinal tenderness, no cervical muscular tenderness, no thoracic spinal tenderness and no lumbar spinal tenderness Skin: no rashes, warm and dry Neurologic: CN's II-XI intact bilaterally and moves all extremities Speech / Cognition: + abnormal speech and + expressive aphasia Motor/Sensory: no tremor and no sensory deficit Psychiatric: Orientation: alert, oriented to person, oriented to place and oriented to time Apperance: appropriately groomed; not disheveled Affect: euthymic affect; no anxious affect and no tearful affect Genitourinary: no CVA tenderness no Helton catheter Results & Data Results & Data ([facility]) Vital Signs (Past 12 Hours) Vital Signs Temp Pulse Pulse Resp BP BP Pulse Ox 03/15/20 07:28 64 03/15/20 07:16 36.9 C 62 18 157/74 H 95 03/15/20 04:00 36.8 C 62 20 162/78 H 94 03/15/20 00:53 36.6 C 73 20 157/73 H 98 03/14/20 22:20 70 Medications Administered Results Reviewed Results Results reviewed with patient:: Laboratory, MRI and CT Results / Data Diagnostics MRI: head MRA IMPRESSION: No significant stenosis, occlusion, or aneurysm within the [place]. neck MRA IMPRESSION: 1. Exam compromised given lack of postcontrast imaging however bilateral carotid bifurcations grossly patent. 2. Origins of great vessels suboptimally assessed on this exam. No stenosis within visualized portions of the bilateral common carotid, cervical internal carotid and vertebral arteries. CT: Head CT IMPRESSION: 1. Subtle hypodensity within the left temporal region, possibly representing an acute/subacute infarct. An MRI should be considered in follow-up. 2. No evidence of acute hemorrhage 3. Chronic inflammatory changes within the left maxillary sinus. PG Care Time/CCT Total # of Minutes Spent Total Time Spent with Patient: Total time spent is greater than 50% in coordination of care (as documented) at patient's floor/unit and/or counseling patient: Coding Level of Care Code 51103 Subseq Hosp Care Lvl 3 Diagnoses Acute CVA (cerebrovascular accident) I63.9 Hypertension I10 Hypertension type: unspecified Chronic generalized pain R52; G89.29 Memory deficit R41.3 Word finding difficulty R47.89 DVT prophylaxis Z29.9 (1) Hypertension Hypertension type: unspecified Qualified Code(s): I10 - Essential (primary) hypertension
[2020-03-15 08:57] LABS: Estimated Average Glucose 114 mg/dl; Hemoglobin A1C 5.6 % (4.5-5.6)
[2020-03-15] MEDS ORDERED: ATORVASTATIN 40 MG TAB PO SCH (09:00)
[2020-03-15] MEDS ORDERED: amLODIPine BESYLATE 5 MG TAB PO SCH (09:00)
[2020-03-15] MEDS ORDERED: ASPIRIN 81 MG ECTAB PO SCH (09:00)
[2020-03-15] MEDS ORDERED: Nursing to Pharmacy Communication SCH (09:15)
[2020-03-15 09:21] LABS: Calcium 8.9 mg/dl (8.5-10.1); Creatinine Clr Calc Pharmacy 53.1 ml/min; Est GFR (African American) 89.4; Est GFR (Non-African American) 77.1; Potassium 3.5 mmol/L (3.5-5.1)
--- NOTE | 2020-03-15 13:59 | Neurology Consultation ---
Date of Consultation March 15, 2020 Assessment & Plan (1) Acute CVA (cerebrovascular accident): Emma Paz is an 85 yo woman w/ PMH of HTN, HLD, colon cancer, lung mass, h/o word finding difficulty, memory issues and cerebral venous abnormality who p/t [facility] with worsening confusion over the last few weeks. Symptom localization: left inferior division MCA territory Stroke mechanism: most likely flow failure in setting of known high grade stenosis of left M2 Stroke WorkUp: - CT head: left temporoparietal lobe, small vessel disease, mild generalized atrophy. - CTA head/neck: high grade stenosis of the L M2 segment but no other LVO, high- grade stenosis or aneurysm - MRI brain: pt refused - MRA head/neck: high grade stenosis of the L M2 segment but no LVO, high-grade stenosis or aneurysm - TTE: none while admitted, should get as an outpatient to complete stroke workup (pt desires to go home without completion) - Telemetry: NSR - A1c: should be re-checked as an outpatient by PCP - FLP: should be re-checked as an outpatient by PCP - Troponin: negative Stroke Management: - Acute treatment: ASA - Vitals, Neurochecks, NIHSS per unit routine - BP parameters: SBP CAP 180, restart home anti-hypertensives but would aim for a higher goal of <140/90 given high grade stenosis - Complete ischemic stroke workup as an outpatient with TTE without bubble, A1c, fasting lipid panel - Consult speech, PT, OT for supportive management - Will primary substance abuse counselor concerning stroke education, smoking cessation, healthy diet, physical activity, weight loss - Follow up with PCP for assistance with outpatient goals (BP <140/90, LDL <70, A1c <7) - Follow up in neurology clinic in 6-8 weeks (can be with KRISTEN Blackwell) - Recommend referral to [facility] Alexi Whitney for DSA and discussion of possible intervention for known L M2 high grade stenosis Secondary Stroke Prevention: - Antiplatelet: ASA 81mg po daily, restart plavix 75mg daily - Anticoagulation: Not indicated at this time - Statin: Atorvastatin 80mg daily HTN: - BP parameters, as above FEN/GI: - Diet: Cardiac HH diet and PO meds given absence of bulbar signs or symptoms - Monitor lytes and replete PRN Glucose Control: - Sliding scale insulin and accuchecks per primary team to avoid hyperglycemia Thank you for this interesting consult. Plan of care was discussed with primary team. Please call with any questions. (2) Memory deficit: (3) Word finding difficulty: History of Present Illness Attending Physician: Abigail Josue MD History of Present Illness Emma Paz is an 85 yo woman w/ PMH of HTN, HLD, colon cancer, lung mass, h/o word finding difficulty, memory issues and cerebral venous abnormality who p/t [facility] with worsening confusion over the last few weeks. In the ED, she was afebrile, BP 136/65, heart rate 72, respiratory rate 16, satting 97% on room air. Labs notable for WBC 6.48, hemoglobin 13.4, platelets 231, sodium 139, potassium 3.5, creatinine 0.95, glucose 141, INR 1.0, LFTs within normal, troponin negative, TSH within normal, UA no infection. Imaging independently reviewed. CT head shows hypodensity in the left temporoparietal lobe, small vessel disease, mild generalized atrophy. MRA head and neck shows high grade stenosis of the L M2 segment but no LVO, high-grade stenosis or aneurysm. MRI brain pending. Received aspirin 324mg and was admitted for further workup. On examination today, she has significant difficulty with speech and often defers to her to speak for her. Her neurological exam is otherwise unchanged from previous when I saw her several months ago in terms of no new numbness, tingling or weakness noted. They endorse that she has been taking aspirin 81 mg daily and atorvastatin 80 mg daily as well with no recent missed doses. was unable to give a clear date when symptoms worsened but does note that speech has become worse in the last few weeks. Allergies Allergy/AdvReac Type Severity Reaction Status Date / Time meperidine Allergy Mild RASH Verified 03/14/20 13:24 Bactrim Allergy Unknown rash Verified 03/22/17 08:25 doxycycline Allergy Unknown rash Verified 03/14/20 13:24 sulfamethoxazole Allergy Unknown rash Verified 03/14/20 13:24 trimethoprim Allergy Unknown rash Verified 03/14/20 13:24 hydrocodone AdvReac Mild RASH Verified 03/14/20 13:24 oxycodone AdvReac Mild N/V Verified 03/14/20 13:24 Percocet TABS Allergy Unknown Nausea Uncoded 03/14/20 13:24 Vicodin TABS Allergy Unknown Nausea Uncoded 03/14/20 13:24 Home Medications Home Medications Medication Instructions Recorded Confirmed Type amlodipine 10 mg tablet 10 mg PO DAILY #90 tab 01/28/19 03/14/20 Rx losartan 50 mg tablet 50 mg PO DAILY #90 tab 04/29/19 03/14/20 Rx amoxicillin 500 mg tablet 500 mg PO UD PRN 07/08/19 03/14/20 History aspirin 81 mg tablet 81 mg PO DAILY 07/08/19 03/14/20 History tramadol 50 mg tablet 50 mg PO Q4H PRN tab 07/08/19 03/14/20 History naproxen sodium [Aleve] 220 mg PO BID PRN 09/10/19 03/14/20 History atorvastatin 80 mg PO DAILY 03/14/20 03/14/20 History Patient History Medical History Colon cancer Hyperlipidemia Hypertension Lung mass Osteoarthritis of left knee Osteoarthritis of right knee Osteoarthritis of shoulder Peripheral vascular disease Spinal stenosis Social History Smoking Status: Former smoker Second Hand Exposure: No; Do You Dip or Chew Tobacco: No; Hx Alcohol Use: No Hx Substance Use: No Preferred Language: Belarusian Communication Ability: Effective Communication Ability Comment: trouble writing at times 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 Exam (Neuro) Physical Exam: General Exam: GEN: NAD, sitting in bed. HEENT: No conjunctival injection, no rhinorrhea. CV: RRR, no peripheral edema PULM: Nonlabored respirations on room air. Neuro Exam: MS: Awake and Alert. Oriented to person, being in a hospital, and year but not month. Speech fluent and inappropriate without dysarthria with frequent paraphasic errors. Language intact including comprehension, impaired naming and repetition. Cognition and memory grossly intact. Attention intact. No neglect. CN: Visual martínez full. No extinction to double simultaneous stimuli. No optic disc edema on fundoscopic exam. PERRLA OU. EOMI without nystagmus. Facial sensation intact to LT. Facial muscles full and symmetric. Hearing intact to conversation. Uvula midline with symmetric palatal elevation. Shoulder shrug normal. Tongue midline. MOTOR: Normal bulk and tone. No pronator drift. BUE strength 5/5 at deltoids, biceps, triceps, and hand grasp bilaterally. BLE strength 5/5 at iliopsoas, hamstrings, quadriceps, tibialis anterior, and gastrocnemius bilaterally. REFLEXES: 1+ at biceps, triceps, brachioradialis, trace patella and absent Achilles bilaterally. Flexor plantar responses bilaterally. SENSORY: Intact to LT without extinction to double simultaneous stimuli. Vibration intact throughout. COORDINATION: No dysmetria or ataxia on [id number] bilaterally. Normal Deann bilaterally. GAIT: deferred given physical status Results & Data ([facility]) Vital Signs (Past 12 Hours) Vital Signs Temp Pulse Pulse Resp BP Pulse Ox 03/15/20 07:28 64 03/15/20 07:16 36.9 C 62 18 157/74 H 95 03/15/20 04:00 36.8 C 62 20 162/78 H 94 PG Care Time/CCT Total # of Minutes Spent Total Time Spent with Patient: Total time spent is greater than 50% in coordination of care (as documented) at patient's floor/unit and/or counseling patient: Coding Level of Care Code 96687 OBS Care - Level 3 Diagnoses Acute CVA (cerebrovascular accident) I63.9 Memory deficit R41.3 Word finding difficulty R47.89
[2020-03-15] MEDS ORDERED: OPTIRAY 320 125ml IV ONE (16:05)
--- NOTE | 2020-03-15 16:23 | CT Scan Report ---
CT angio head w con CLINICAL HISTORY: 85 years-old Female with stroke. Acute strokelike symptoms COMPARISON STUDY: Head CT 03/14/2020, CTA head 09/10/2019, brain MRI 10/20/2019. TECHNIQUE: Following the IV administration of 120 cc of Optiray 320, CT angiogram of the brain was pe rformed from the skull base to the vertex. Images are reviewed in the axial, sagittal, and coronal pl anes. 3-D MIPS images are created and assessed. IV contrast was administered without complication. Al l measurements were obtained according to NASCET criteria. A dose lowering technique was utilized adh ering to the principles of ALARA. CT DOSE: 108.63 mGy.cm FINDINGS: Calcified plaque of the cavernous and supraclinoid segments. The imaged internal carotid arteries are patent bilaterally. There is mild luminal narrowing of less than 50% noted within the left M1 segmen t. The bilateral anterior cerebral arteries are widely patent. Calcified plaque of the distal vertebr al arteries which are patent. The basilar and posterior cerebral arteries are widely patent. No aneur ysm, dissection, high-grade stenosis or proximal branch occlusion. Cerebral no cerebral venous thromb osis. Numerous opacified collateral vessels are again noted throughout the left cerebral hemisphere w hich appear unchanged. 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 I ll-defined hypodensity of the left temporal lobe. Completely opacified left maxillary sinus with dens e secretions. IMPRESSION: 1. Ill-defined hypodensity of the left temporal lobe is suspicious for an acute or subacute infarct. 2. Numerous collateral vessels throughout the left cerebral hemisphere redemonstrated with unchanged possible remote thrombus/stenosis of the left transverse sinus. 3. Unchanged mild luminal narrowing within the left middle cerebral artery. ACT 112: Negative or not required by law. The above report was generated using voice recognition software. It may contain grammatical, syntax o r spelling errors. Electronically signed by: Gray Wolf M.D. 03/15/2020 4:21 PM
--- NOTE | 2020-03-15 18:25 | Discharge Summary ---
Date of Service March 15, 2020 Admission HPI Per Admitting Provider Emma Paz is an 85-year-old female with a past medical history of hypertension, hyperlipidemia, lung mass, colon cancer, and aphasia who presents with increased word finding difficulty. Her history is limited by intermittent expressive aphasia without receptive aphasia or dysarthria. Was first seen in in August 2019 for similar. she was found to have generalized cerebral atrophy and severe vascular disease with CTA head and neck showing right ICA stenosis and severe stenosis of the left M2 with diffuse intracranial atherosclerosis. Recommended for admission at that time left AMA and followed up with neurology as an outpatient. Neurology follow-up History today patient reports a long history of difficulty with reading since childhood, had acute worsening in her ability to speak, find words, and read since several months ago. She feels it is extremely frustrating, and she is unable to express to her or family what is wrong when they ask which she reports is 'just awful.' She endorses intermittent headache in the past, none at time of HPI. Otherwise she denies weakness, numbness, tingling, sensory change, falls, difficulty with balance, dysuria, cough, fever, chills, shortness of breath, difficulty breathing, and chest pain. Eyes tingling in her muscles or joints at time of HPI. Endorses intermittent muscle aches in the past. She endorses decreased appetite for several months. Denies nausea, diarrhea, constipation. She reports she was told that she has had strokelike episodes in the past and was on aspirin, was prescribed Plavix but has not taken it in several months. She did not feel it was helping. Denies other medication changes, takes her medications at home with the assistance of assisted living. She reports that she has been extremely frustrated by her word finding difficulty, and people keep admitted to the hospital when "I would rather be at home, even if I I'm ready." She endorses depressed mood, which she attributes to frustration over her aphasia. Denies SI/HI, AH/VH. No history of diabetes. Medical history: Reviewed Medications: Reviewed. Of note patient by notes was prescribed Plavix, but has not been taking this, and is absent from her med rec. Patient may have self discontinued, will discuss with neuro. Surgical history: Reviewed Allergies: Reviewed Social: Lives in assisted living with her . Denies current tobacco use, endorses prior smoking history quit more than 20 years ago. Denies recent alcohol use, denies recreational drug use. CODE STATUS: DNR/DNI Principal Diagnosis acute ischemic stroke Discharge Exam Constitutional well developed and well nourished; no acute distress Eyes PERRL, conjunctivae normal, anicteric sclerae ENMT Mouth: oral mucous membranes not dry Respiratory normal respiratory effort; no respiratory distress and no labored breathing Auscultation: lungs clear to auscultation bilaterally; no crackles, no rales, no rhonchi and no wheezes Cardiovascular Rate/Rhythm: regular rate and regular rhythm Heart Sounds: no murmur and no cardiac rub Vessels: normal peripheral pulses and radial pulses present; no JVD Extremities: no edema Gastrointestinal (Abdomen) Inspection/Auscultation: abdomen normal to inspection and normal bowel sounds; abdomen not distended Percussion/Palpation: abdomen soft; abdomen nontender, no guarding, abdomen not rigid and no hepatosplenomegaly Musculoskeletal Head/Neck/Chest: normocephalic and head atraumatic Spine: no cervical spinal tenderness, no cervical muscular tenderness, no thoracic spinal tenderness and no lumbar spinal tenderness Skin no rashes, warm and dry Neurologic CN's II-XI intact bilaterally and moves all extremities Speech / Cognition: + abnormal speech and + expressive aphasia Motor/Sensory: no tremor and no sensory deficit Psychiatric Orientation: alert, oriented to person, oriented to place and oriented to time Apperance: appropriately groomed; not disheveled Affect: euthymic affect; no anxious affect and no tearful affect Genitourinary no CVA tenderness Discharge Data Allergies Allergy/AdvReac Type Severity Reaction Status Date / Time meperidine Allergy Mild RASH Verified 03/14/20 13:24 Bactrim Allergy Unknown rash Verified 03/22/17 08:25 doxycycline Allergy Unknown rash Verified 03/14/20 13:24 sulfamethoxazole Allergy Unknown rash Verified 03/14/20 13:24 trimethoprim Allergy Unknown rash Verified 03/14/20 13:24 hydrocodone AdvReac Mild RASH Verified 03/14/20 13:24 oxycodone AdvReac Mild N/V Verified 03/14/20 13:24 Percocet TABS Allergy Unknown Nausea Uncoded 03/14/20 13:24 Vicodin TABS Allergy Unknown Nausea Uncoded 03/14/20 13:24 Consultations 03/14/20 14:11 ED Decision to Admit Stat 03/14/20 18:13 Consult Case Management - Discharge Planning Routine Consult Neurology Routine Ordered Studies 03/14/20 12:17 CT head/brain wo con Stat 03/14/20 18:13 MR angio head wo con Urgent 03/15/20 00:02 MR angio neck wo con Routine 03/15/20 14:34 CT angio head w con Routine Hospital Course (1) Acute CVA (cerebrovascular accident): worsening expressive aphasia Head CT with subtle hypodensity within the left temporal region neurology Dr. Anaya consulted Patient refused MRI brain cont aspirin 81mg, plavix 75mg, lipitor 80mg PO daily per neuro recs PT and OT signed off, patient needs continued ST after discharge Neurology recommends transthoracic echocardiogram, A1c, FLP as outpatient (2) Stenosis of left middle cerebral artery: Mild luminal narrowing < 50% within the left M1 segment Neurology recommends referral to [facility] Alexi Whitney for "DSA and discussion of possible intervention for known left M2 high grade stenosis" (3) Hypertension: allow permissive hypertension for 24 hours after onset of symptoms goal SBP< 140 can resume norvasc today resume losartan on 03-17 (4) Chronic generalized pain: cont voltaren gel, tylenol prn stop naproxen (5) Memory deficit: per notes, patient refused neuropsych testing likely component of vascular dementia (6) Word finding difficulty: (7) DVT prophylaxis: holding lovenox in setting of acute stroke regular diet CODE DNR/DNI Personally discussed plan of care with patient's at bedside, neurology and bedside nursing. Patient refuses to stay in hospital for further workup and is aware of risk of life threatening stroke and . She demands to be discharged. Total Time Total Time Spent Total Time Spent (In Minutes): Spent over 1 hour today examining patient, discussing with patient and , coordinating discharge plan with neurology, completing discharge plan, writing discharge summary, conveying plans to bedside nursing. Total Time Includes: Examination of the Patient, Discharge Planning, Medication Reconciliation and Communication With Other Providers Discharge Plan Discharge Items Patient Disposition: Home - Self-Care Reason For Visit: WORSENING APHASIA Discharge Diagnosis: 1. acute stroke 2. high blood pressure 3. expressive aphasia (unable to articulate the words that you want to say) 4. chronic pain Condition on Discharge: Serious Activity: Resume your previous activity Weightbearing: Full weightbearing Non-emergency contact: Primary Care Provider Call non-emergency contact if: you have any medication questions Follow-up/Referrals: Missy Anaya MD [Physician] - (Please call to make an appointment within 1 week with KRISTEN Blackwell.) Tracy Amaro [Primary Care Provider] - Diet: Regular Diet Comment: regular diet Addtl Attending Provider Instructions: Instructions: 1. You need to continue speech therapy 2. Please do not start taking your losartan again until 03-17. We want your blood pressure to be a little bit higher for the next day. 3. Continue taking your plavix, amlodipine and atorvastatin. 4. Start taking aspirin 81mg everyday 5. Stop taking naproxen. I sent a prescription to your pharmacy for a diclofenac patch that you can apply to areas where you are having pain. 6. You can continue to take tramadol as needed for pain. Other instructions: Risk Factors for Stroke: You can reduce your chances of stroke by working with your medical provider to adopt a healthy lifestyle. Some specific ways to lower your chance of stroke are: * If you are a smoker, now is the time to stop smoking cigarettes * If you are diabetic, improve the control of your blood sugars * Avoid excessive amounts of alcohol * Control high blood pressure * Lose weight if you are overweight * Be sure to lead an active lifestyle * Eat a healthy diet low in salt, cholesterol and fat You should know about other risk factors for stroke that you are unable to control. These include: * Age 55 years or older * Male gender * Certain racial groups: , or / * Family History of Stroke, Mini stroke or Heart Attack * Sickle Cell Disease Follow Up: It is important for you to keep your follow up appointments with your medical provider. Who to Call and When: Medical Emergencies: Call 911 immediately if you experience any of the following warning signs and symptoms of Stroke: * Sudden numbness or weakness of the face, arm or leg, especially on one side of the body * Sudden confusion, trouble speaking or understanding * Sudden trouble seeing in one or both eyes * Sudden trouble walking, dizziness, loss of balance or coordination * Sudden severe headache with no cause Do not delay calling 911 if you experience any warning signs or symptoms of a stroke. Delay in seeking medical attention may affect what treatments can be given to you. Return to emergency room if your symptoms worsen. Addtl Provider Relations Coordinator Provider Instructions: - Continue aspirin 81mg daily and plavix 75mg daily. - Complete ischemic stroke workup with your family doctor including transthoracic echocardiogram without bubble, A1c, fasting lipid panel - Follow up with your family doctor for assistance with outpatient goals (BP <140/90, LDL <70, A1c <7) - Follow up in neurology clinic [facility] (can be with KRISTEN Blackwell) - Recommend referral to [facility] to see Dr Whitney for "DSA" and discussion of possible intervention for known "L M2 high grade stenosis" Pending Studies at Discharge: No Stand-Alone Forms: Medications to Prevent Stroke, [facility] Medications and DC Order Prescriptions: New diclofenac epolamine 1.3 % patch 12 hour 180 mg topical BID Qty: 30 RF: 1 Continued amlodipine 10 mg tablet 10 mg PO DAILY Qty: 90 RF: 3 losartan 50 mg tablet 50 mg PO DAILY Qty: 90 RF: 3 amoxicillin 500 mg tablet 500 mg PO UD PRN (Reason: Dentist Appointments) RF: 0 aspirin 81 mg tablet 81 mg PO DAILY RF: 0 tramadol 50 mg tablet 50 mg PO Q4H PRN (Reason: Pain) RF: 0 atorvastatin 80 mg tablet 80 mg PO DAILY RF: 0 clopidogrel 75 mg tablet 75 mg PO DAILY RF: 0 Discontinued naproxen sodium [Aleve] 220 mg Tablet 220 mg PO BID PRN (Reason: Pain) RF: 0 Discharge Orders: Discharge Order (Routine); Ordered 03/15/20 Ordered By: Abigail Lanier/Other Patient Handouts: What Is Aphasia?, Stroke Mood Swings Depression, Stroke: Resources and Support, Stroke Prevention Activity Admission Data Admit Date/Time: 03/14/20 16:40 Attending Provider: Abigail Josue Admit Provider: Dustin Vaca Primary Care Provider: Tracy Amaro Other Providers: Cande Rush Christina R. Coding Level of Care Code D/C Day Management >30 mins Diagnoses Acute CVA (cerebrovascular accident) I63.9 Stenosis of left middle cerebral artery I66.02 Hypertension I10 Hypertension type: unspecified Chronic generalized pain R52; G89.29 Memory deficit R41.3 Word finding difficulty R47.89 DVT prophylaxis Z29.9 Time Spent (min) 60
--- NOTE | 2020-03-15 18:26 | Pharmacy Report ---
Pharmacist Stroke Counseling - Date of Service March 15, 2020 - Scope: Pharmacy has been consulted to provide medication discharge counseling for this patient admitted with ischemic stroke as per the Pharmacist Discharge Counseling for Stroke Patients Protocol. - Medications on Discharge: Home Medications Medication Instructions Recorded Confirmed amoxicillin 500 mg tablet 500 mg PO UD PRN 07/08/19 03/14/20 aspirin 81 mg tablet 81 mg PO DAILY 07/08/19 03/14/20 tramadol 50 mg tablet 50 mg PO Q4H PRN tab 07/08/19 03/14/20 atorvastatin 80 mg PO DAILY 03/14/20 03/14/20 clopidogrel 75 mg PO DAILY 03/15/20 03/15/20 New Rx's Medication Instructions Recorded amlodipine 10 mg tablet 10 mg PO DAILY #90 tab 01/28/19 losartan 50 mg tablet 50 mg PO DAILY #90 tab 04/29/19 diclofenac epolamine 180 mg TOPICAL BID #30 ea 03/15/20 - Action: The above medications, specifically ones for stroke treatment/prophylaxis, have been reviewed in detail with the patient and/or patient passenger service representative(s) prior to discharge. This includes indication, common adverse reactions, drug interactions, and medication administration. Medication counseling has been employed using the teach-back method to ensure understanding. - Outcome: The patient and/or patient passenger service representative(s) have demonstrated understanding of the medications. Additional comments: I had the pleasure of discussing Emma's medications with her Alvin. Thank you for allowing pharmacy to be involved in the care of this patient. Please call [phone] with any additional questions
[2020-03-15] MEDS ORDERED: STROKE PATIENT DISCHARGE STA (18:27)
[2020-03-16] MEDS ORDERED: CLOPIDOGREL BISULFATE 75 MG TAB PO SCH (09:00)
== END 2020-03-15 18:31 | disposition home or self-care (01) ==
LOC: ED 10:56 → 2N 10:56 → SUATTDRO 16:40 → 2N 17:57
DX: Z87.891 Personal history of nicotine dependence; Z79.899 Other long term (current) drug therapy; Z66 Do not resuscitate; R52 Pain, unspecified; I63.512 Cerebral infarction due to unspecified occlusion or stenosis of left middle cerebral artery; Z79.82 Long term (current) use of aspirin; Z88.2 Allergy status to sulfonamides; Z88.8 Allergy status to other drugs, medicaments and biological substances; Z85.038 Personal history of other malignant neoplasm of large intestine; R41.3 Other amnesia; G89.29 Other chronic pain; Z88.1 Allergy status to other antibiotic agents; E78.5 Hyperlipidemia, unspecified; I10 Essential (primary) hypertension; I73.9 Peripheral vascular disease, unspecified; Z88.5 Allergy status to narcotic agent; I69.320 Aphasia following cerebral infarction

== ENCOUNTER 2020-03-20 12:04 | Inpatient (IN) ==
--- NOTE | 2020-03-20 12:06 | Emergency Department Note ---
Impression & Plan Hemorrhagic cerebrovascular accident (CVA), Hypertensive emergency ED Provider Note NAME: AARON MAZARIEGOS AGE: 85 SEX: F : 1935 ARRIVES VIA: Ambulance INFORMANT: Patient, ED PROVIDER(S): Tesfaye Morejon MD Chief Complaint: Aphasia HPI: I did receive medical command call due to concern for strokelike symptoms. The patient did have worsening aphasia. The patient was seen by myself and admitted for similar issues and patient does have a baseline history of expressive aphasia. The patient did have CT angios as well as MRAs of the head and neck which did show left M2 stenosis which is likely the cause of her symptoms. The patient had refused a brain MRI at that time. The patient is on aspirin and Plavix. The patient's last known well was at 11 AM this morning. Patient is a resident [facility]. No Covid type symptoms. She does have significant expressive aphasia and difficulty with communication. Patient is able to move all 4 extremities. ROS: Unobtainable secondary to patient's inability to speak. Past medical history: See below Surgical history: See below Social history: See below Physical Exam: GENERAL: Wearing a mask. EYE EXAM: Normal conjunctiva. PERRL, no anisocoria and EOM's grossly intact w/o pain. NECK: Supple, no nuchal rigidity, no adenopathy, non-tender. No signs of meningismus. LUNGS: Clear to auscultation. Normal chest wall mechanics. HEART: NSR, no MRG. ABDOMEN: Abdomen soft, non-tender, normo-active bowel sounds, no masses, no rebound or guarding. BACK: No CVA TTP. SKIN: No rashes and no bruising. UPPER EXTREMITIES: Upper extremities are grossly normal. LOWER EXTREMITIES: Grossly normal, no edema. NEURO EXAM: Awake and alert, does not follow commands but is able to move all 4 extremities. Patient does respond to pain. Expressive aphasia noted. Differential diagnoses: Infection, dehydration, metabolic abnormality, hypo/hyperglycemia, electrolyte disturbance, anemia, hypoxia, cardiac sources, intracerebral event, toxicologic, neurologic, as well as other pathologies. Course: Patient was seen and evaluated the bedside. Full history physical exam was performed. EKG: Indication: Stroke work-up Normal sinus rhythm, rate of 68, normal intervals, normal axis, no ST changes. No significant change from prior EKG March 14, 2020. Imaging Studies: Radiology results as stated below per my review in the radiologist's interpretation: CT head/brain wo con CLINICAL HISTORY: 85 years-old Female with Stroke evaluation . Acute strokelike symptoms TECHNIQUE: Multiple axial CT images of the head were obtained without contrast. A dose lowering technique was utilized adhering to the principles of ALARA. CT DOSE: 1702.52 mGy.cm COMPARISON: CTA head neck, brain MRI 12/28/2019 FINDINGS: Interval development of a 9 x 8 mm hemorrhagic focus within the left temporal lobe, image 15 series 4. Increased amount of surrounding temporal lobe edema results in mild local gyral expansion with sulcal effacement and partial effacement of the left temporal horn. No midline shift or hydrocephalus. Age- related involutional changes with ex vacuo ventriculomegaly. Mild patchy white matter hypodensities suggest chronic microvascular ischemic disease. Volume loss with severe mucoperiosteal thickening with near complete opacification of the left maxillary sinus containing dense secretions. Mastoid air cells and middle ear cavities are clear. Soft tissues are unremarkable. Prior bilateral lens replacement. IMPRESSION: 1. Interval development of a subcentimeter hyperdense focus within the left temporal lobe suggestive of acute hemorrhagic transformation with mildly progressed left temporal lobe edema compatible with evolving subacute infarct. 2. No midline shift. Findings were discussed with Dr. Morejon on 03/20/2020 at 12:35 PM. ACT 112: Negative or not required by law. The above report was generated using voice recognition software. It may contain grammatical, syntax or spelling errors. Electronically signed by: Gray Wolf M.D. 03/20/2020 12:41 PM Dictated: 03/20/20 1233 Transcribed: 03/20/[address] angio neck with con, CT angio head w con CLINICAL HISTORY: 85 years-old Female with Stroke evaluation. Acute strokelike symptoms COMPARISON STUDY: CTA head and MRA neck 03/15/2020, CTA neck 09/10/2019 TECHNIQUE: Following the IV administration of 118 mL of Optiray 320, CT angiogram of the head and neck was performed from the aortic arch to the skull apex. Images are reviewed in the axial, sagittal, and coronal planes. 3-D MIPS images are created and assessed. IV contrast was administered without complication. All measurements were calculated based on NASCET criteria. A dose lowering technique was utilized adhering to the principles of ALARA. FINDINGS: Imaged pulmonary artery is unremarkable. Moderate mixed plaque of the thoracic aortic arch. Patency of the innominate and image bilateral subclavian arteries. The bilateral bilateral common carotid arteries are patent. Moderate mixed plaqu e in carotid bulb without high-grade stenosis. Moderate mixed plaque of the cavernous and supraclinoid segments. Mixed plaque at the origin of the right vertebral artery results in 60% luminal narrowing, unchanged. Tortuosity of the of the T1 segment left vertebral artery. It represent minimal narrowing of the distal V2 segment the level of C1-C2 secondary to uncovertebral spurring, also unchanged. There is mild luminal narrowing of less than 50% noted within the left M1 segment. The bilateral anterior cerebral arteries are widely patent. Calcified plaque of the distal vertebral arteries which are patent. The basilar and posterior cerebral arteries are widely patent. No aneurysm, dissection, high- grade stenosis or proximal branch occlusion. No cerebral venous sinus thrombosis. Numerous opacified collateral vessels are again noted throughout the left cerebral hemisphere which appear unchanged. 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 9 mm hemorrhagic focus of the left temporal lobe is better seen on noncontrast enhanced study. 5 mm subpleural solid nodule of the right lung apex. No pneumothorax. Multilevel degenerative changes of the spine. Chronically opacified left maxillary sinus with dense secretions IMPRESSION: 1. Stable exam without new aneurysm, dissection, high-grade stenosis or proximal branch occlusion. 2. Evolving subacute infarct of the left temporal lobe with subcentimeter acute hemorrhagic focus better seen on the noncontrast head CT of same day. 3. Numerous collateral vessels throughout the left cerebral hemisphere red emonstrated with unchanged possible remote thrombus/stenosis of the left transverse sinus. 4. Unchanged mild luminal narrowing within the left middle cerebral artery. 5. Additional findings as above. ACT 112: Negative or not required by law. The above report was generated using voice recognition software. It may contain grammatical, syntax or spelling errors. Electronically signed by: Gray Wolf M.D. 03/20/2020 12:56 PM Dictated: 03/20/20 1245 Transcribed: 03/20/20 1245 Cardiac monitoring: An order was placed for continuous cardiac monitoring. The monitor shows a rate of 72 with sinus rhythm. MDM: Patient does present with concern for worsening expressive aphasia. Patient did have CT of the head and CT angiography's of the head and neck. The patient was a code stroke that was initiated. I did speak with Dr. Garner and [facility] neurology service. I did receive a phone call from the radiologist Dr. Wolf but noted that the patient did have hemorrhagic conversion of her prior stroke. I did discuss this with the on-call telestroke neurologist Dr. Garner. No seizure prophylaxis given that is not cortical per telestroke. The patient was started on Cardene for blood pressure control. They recommended titration between 120-150 systolic especially given concomitant M2 stenosis. After further discussion she does recommend tight blood pressure control and after speaking with her neurosurgery sap solution manager consultant, neurosurgery was not r ecommending intervention at this time. They also stated that from an interventional standpoint with regard to her stenosis they would not intervene with that either. I did convey this to the patient. After further discussion I did talk with the hospitalist and subsequently did speak with the manager of housekeeping Dr. Sage. Dr. Sage was concerned that if this worsened that it may require neurosurgical treatment. I did speak with the telestroke neurologist another time but they were unable to provide flight transport but again would still not intervene surgically or interventionally from a neurosurgical standpoint. I did speak with [facility] neurology, Dr. Riggs, who conveyed the same and that they recommended the patient stay at [facility] for blood pressure control as they would not intervene either. I did convey this to Dr. Sage and discussed the findings with the patient's who is currently in agreement with the plan of care. Patient was subsequently admitted to the medicine service under Dr. Clifford to the intensive care unit. Critical Care: I have personally spent 150 minutes of critical care time in direct management of this patient. This includes bedside care, interpretation of diagnostic studies, and testing, discussion with consultants, patient, and family members, and other require inpatient management activities. This 150 minutes is in excess of all separately billable procedures. Past Med/Surg History Medical History (Updated 03/20/20 @ 17:23 by Tesfaye Morejon MD) Colon cancer Hyperlipidemia Hypertension Lung mass Osteoarthritis of left knee Osteoarthritis of right knee Osteoarthritis of shoulder Peripheral vascular disease Spinal stenosis Stroke-like symptoms Social History Smoking Status: Unknown if ever smoked Second Hand Exposure: No; Hx Alcohol Use: No Hx Substance Use: No Preferred Language: Azeri Communication Ability: Effective Bolt Labeler Required: No Beliefs That Will Affect Care: Yarsani Yarsani Beliefs: ORTHODOX Current Living Situation: Spouse Current Living Situation Comment: [facility] AT [facility] Other Information That Helps Us Care for You: No Feels Safe at Home: Yes Assistive Devices: Cane, Glasses and Walker Allergies Allergies Allergy/AdvReac Type Severity Reaction Status Date / Time meperidine Allergy Mild RASH Verified 03/20/20 12:45 Bactrim Allergy Unknown rash Verified 03/22/17 08:25 doxycycline Allergy Unknown rash Verified 03/20/20 12:45 sulfamethoxazole Allergy Unknown rash Verified 03/20/20 12:45 trimethoprim Allergy Unknown rash Verified 03/20/20 12:45 hydrocodone AdvReac Mild RASH Verified 03/20/20 12:45 oxycodone AdvReac Mild N/V Verified 03/20/20 12:45 Percocet TABS Allergy Unknown Nausea Uncoded 03/20/20 12:45 Vicodin TABS Allergy Unknown Nausea Uncoded 03/20/20 12:45 Home Meds Home Medications Medication Instructions Recorded Confirmed amoxicillin 500 mg tablet 500 mg PO UD PRN 07/08/19 03/20/20 atorvastatin 80 mg PO DAILY 03/14/20 03/20/20 clopidogrel 75 mg PO DAILY 03/15/20 03/20/20 aspirin [Aspir-Low] 81 mg PO DAILY 03/20/20 03/20/20 Previous Rx's Medication Instructions Recorded amlodipine 10 mg tablet 10 mg PO DAILY #90 tab 01/28/19 losartan 50 mg tablet 50 mg PO DAILY #90 tab 04/29/19 Results & Data (ED) Vital Signs Vital Signs - 24 hr 03/20/20 12:26 03/20/20 12:28 03/20/20 12:30 Temperature 37.1 C Pulse Rate 94 H 68 65 Pulse Rate from SpO2 Sensor 66 58 L Respiratory Rate 17 18 18 Blood Pressure 165/60 H 151/66 H Blood Pressure Mean 76 98 Pulse Oximetry 95 95 Oxygen Delivery Method Room Air 03/20/20 12:45 03/20/20 13:00 03/20/20 13:15 Temperature Pulse Rate 82 88 81 Pulse Rate from SpO2 Sensor 69 88 74 Respiratory Rate 18 19 23 Blood Pressure 160/73 H 180/91 H 173/75 H Blood Pressure Mean 105 143 101 Pulse Oximetry 95 95 95 Oxygen Delivery Method 03/20/20 13:30 03/20/20 13:45 03/20/20 13:51 Temperature Pulse Rate 102 H 107 H 110 H Pulse Rate from SpO2 Sensor 93 H 107 H 110 H Respiratory Rate 49 H 24 24 Blood Pressure 173/80 H 171/74 H 151/74 H Blood Pressure Mean 124 114 121 Pulse Oximetry 96 96 96 Oxygen Delivery Method 03/20/20 14:00 03/20/20 14:14 03/20/20 14:16 Temperature Pulse Rate 120 H 118 H 117 H Pulse Rate from SpO2 Sensor 118 H 119 H 118 H Respiratory Rate 25 H 23 20 Blood Pressure 143/60 H 138/51 L Blood Pressure Mean 68 85 Pulse Oximetry 95 97 97 Oxygen Delivery Method 03/20/20 14:28 03/20/20 14:29 03/20/20 14:30 Temperature Pulse Rate 119 H 118 H 120 H Pulse Rate from SpO2 Sensor 119 H 119 H Respiratory Rate 21 21 20 Blood Pressure 147/62 H 147/62 H 144/61 H Blood Pressure Mean 111 90 103 Pulse Oximetry 96 97 96 Oxygen Delivery Method Room Air 03/20/20 14:45 03/20/20 15:00 Temperature Pulse Rate 114 H 117 H Pulse Rate from SpO2 Sensor 114 H 117 H Respiratory Rate 20 20 Blood Pressure 140/59 L 125/63 Blood Pressure Mean 94 74 Pulse Oximetry 98 98 Oxygen Delivery Method Home Medications Current Medication List: was personally reviewed by me Laboratory Data Attestation: I reviewed the patient's lab results. Result diagrams: 03/20/20 12:46 03/20/20 12:46 Lab Results 03/20/20 03/20/20 03/20/20 Range/Units 12:29 12:46 12:46 WBC 6.68 (4.8-10.8) K/uL RBC 4.05 L (4.2-5.4) M/uL Hgb 12.3 (12.0-16.0) g/dL Hct 37.2 (37-47) % MCV 91.9 (80-100) fL MCH 30.4 (25-34) pg MCHC 33.1 (32-36) g/dL RDW Std Deviation 48.1 H (36.4-46.3) fL RDW Coeff of Ranulfo 14.1 (11.5-14.5) % Plt Count 214 (130-400) K/uL MPV 10.9 H (7.4-10.4) fL Immature Gran % (Auto) 0.1 % Neut % (Auto) 75.1 % Lymph % (Auto) 16.5 % [place] % (Auto) 6.4 % Eos % (Auto) 1.8 % Baso % (Auto) 0.1 % Neut # (Auto) 5.01 (1.4-6.5) K/uL Lymph # (Auto) 1.10 L (1.2-3.4) K/uL [place] # (Auto) 0.43 (0.11-0.59) K/uL Eos # (Auto) 0.12 (0-0.5) K/uL Baso # (Auto) 0.01 (0-0.2) K/uL Immature Gran # (Auto) 0.01 (0.00-0.02) K/uL PT (9.0-12.0) Seconds INR (0.9-1.1) APTT (21.0-31.0) Seconds PTT Ratio Sodium (136-145) mmol/L Potassium (3.5-5.1) mmol/L Chloride (98-107) mmol/L Carbon Dioxide (21-32) mmol/L Anion Gap (3-11) BUN (7-18) mg/dl Creatinine (0.6-1.2) mg/dl Est Cr Clr Drug Dosing ml/min Est GFR ( Amer) Est GFR (Non-Af Amer) BUN/Creatinine Ratio (10-20) Glucose (70-99) mg/dl POC Glucose 105 H (70-99) mg/dl Calcium (8.5-10.1) mg/dl Magnesium (1.8-2.4) mg/dl Total Bilirubin (0.2-1) mg/dl AST (15-37) U/L ALT (12-78) U/L Alkaline Phosphatase (45-117) U/L Troponin I (0-0.045) ng/ml Total Protein (6.4-8.2) gm/dl Albumin (3.4-5.0) gm/dl Globulin (2.5-4.0) gm/dl Albumin/Globulin Ratio (0.9-2) Blood Type AB Positive Antibody Screen NEGATIVE 03/20/20 03/20/20 Range/Units 12:46 12:46 WBC (4.8-10.8) K/uL RBC (4.2-5.4) M/uL Hgb (12.0-16.0) g/dL Hct (37-47) % MCV (80-100) fL MCH (25-34) pg MCHC (32-36) g/dL RDW Std Deviation (36.4-46.3) fL RDW Coeff of Ranulfo (11.5-14.5) % Plt Count (130-400) K/uL MPV (7.4-10.4) fL Immature Gran % (Auto) % Neut % (Auto) % Lymph % (Auto) % [place] % (Auto) % Eos % (Auto) % Baso % (Auto) % Neut # (Auto) (1.4-6.5) K/uL Lymph # (Auto) (1.2-3.4) K/uL [place] # (Auto) (0.11-0.59) K/uL Eos # (Auto) (0-0.5) K/uL Baso # (Auto) (0-0.2) K/uL Immature Gran # (Auto) (0.00-0.02) K/uL PT 10.7 (9.0-12.0) Seconds INR 1.0 (0.9-1.1) APTT 23.6 (21.0-31.0) Seconds PTT Ratio 0.8 Sodium 140 (136-145) mmol/L Potassium 3.7 (3.5-5.1) mmol/L Chloride 110 H (98-107) mmol/L Carbon Dioxide 23 (21-32) mmol/L Anion Gap 7.0 (3-11) BUN 13 (7-18) mg/dl Creatinine 0.74 (0.6-1.2) mg/dl Est Cr Clr Drug Dosing 50.5 ml/min Est GFR ( Amer) 85.0 Est GFR (Non-Af Amer) 73.4 BUN/Creatinine Ratio 17.1 (10-20) Glucose 105 H (70-99) mg/dl POC Glucose (70-99) mg/dl Calcium 8.8 (8.5-10.1) mg/dl Magnesium 2.1 (1.8-2.4) mg/dl Total Bilirubin 0.8 (0.2-1) mg/dl AST 16 (15-37) U/L ALT 21 (12-78) U/L Alkaline Phosphatase 91 (45-117) U/L Troponin I < 0.015 (0-0.045) ng/ml Total Protein 6.6 (6.4-8.2) gm/dl Albumin 3.1 L (3.4-5.0) gm/dl Globulin 3.5 (2.5-4.0) gm/dl Albumin/Globulin Ratio 0.9 (0.9-2) Blood Type Antibody Screen Administered Medications Nicardipine HCl 25 mg/ Sodium (Chloride) 250 mls @ 50 mls/hr IV .Q5H GAVINO; Protocol Stop: 04/19/20 12:44 Last Admin: 03/20/20 13:40 Dose: 5 mg/hr, 50 mls/hr Documented by: [id number] Cosigned by: [id number] Discontinued Medications Lorazepam (Ativan) 0.5 mg in 1 mls @ 1 mls/min IV NOW STA Stop: 03/20/20 14:45 Last Admin: 03/20/20 14:50 Dose: 1 mls/min Documented by: [id number] Ioversol (Optiray 320 125ml) 118 ml IV ONCE ONE Stop: 03/20/20 12:16 Last Admin: 03/20/20 12:15 Dose: 118 ml Documented by: [id number] Lorazepam (Lorazepam 2 Mg/4 Ml Vial) Confirm Administered Dose 2 mg .ROUTE .STK- MED ONE Stop: 03/20/20 14:43 Last Admin: 03/20/20 14:50 Dose: Not Given Documented by: [id number] Miscellaneous (Stat Iv Infusion Titration Per Protocol) 1 ea N/A NOW STA Stop: 03/20/20 12:41 Last Admin: 03/20/20 12:40 Dose: 1 ea Documented by: [id number] Discharge Plan Visit Data Chief Complaint: Stroke/CVA Symptoms Stated Complaint: Stroke Alert ED Provider: Tesfaye Morejon Discharge Problem: Hemorrhagic cerebrovascular accident (CVA), Hypertensive emergency Patient Disposition: Admitted As Inpatient Discharge Instructions Interventions: ED Discharge Assessment Last Done: 03/20/20 16:22
[2020-03-20] MEDS ORDERED: OPTIRAY 320 125ml IV ONE (12:15)
[2020-03-20] MEDS ORDERED: STAT IV Infusion **Titration per Protocol STA (12:40)
--- NOTE | 2020-03-20 12:42 | CT Scan Report ---
CT head/brain wo con CLINICAL HISTORY: 85 years-old Female with Stroke evaluation . Acute strokelike symptoms TECHNIQUE: Multiple axial CT images of the head were obtained without contrast. A dose lowering tech nique was utilized adhering to the principles of ALARA. CT DOSE: 1702.52 mGy.cm COMPARISON: CTA head neck, brain MRI 12/28/2019 FINDINGS: Interval development of a 9 x 8 mm hemorrhagic focus within the left temporal lobe, image 15 series 4 . Increased amount of surrounding temporal lobe edema results in mild local gyral expansion with sulc al effacement and partial effacement of the left temporal horn. No midline shift or hydrocephalus. Ag e-related involutional changes with ex vacuo ventriculomegaly. Mild patchy white matter hypodensities suggest chronic microvascular ischemic disease. Volume loss with severe mucoperiosteal thickening with near complete opacification of the left maxill shabana sinus containing dense secretions. Mastoid air cells and middle ear cavities are clear. Soft tiss ues are unremarkable. Prior bilateral lens replacement. IMPRESSION: 1. Interval development of a subcentimeter hyperdense focus within the left temporal lobe suggestive of acute hemorrhagic transformation with mildly progressed left temporal lobe edema compatible with e volving subacute infarct. 2. No midline shift. Findings were discussed with Dr. Morejon on 03/20/2020 at 12:35 PM. ACT 112: Negative or not required by law. The above report was generated using voice recognition software. It may contain grammatical, syntax o r spelling errors. Electronically signed by: Gray Wolf M.D. 03/20/2020 12:41 PM
[2020-03-20 12:55] LABS: Basophils # (auto) 0.01 K/uL (0-0.2); Basophils % (auto) 0.1 %; Eosinophils # (auto) 0.12 K/uL (0-0.5); Eosinophils % (auto) 1.8 %; Hematocrit (blood only) 37.2 % (37-47); Hemoglobin 12.3 g/dL (12.0-16.0); Immature Granulocytes # (auto) 0.01 K/uL (0.00-0.02); Immature Granulocytes % (auto) 0.1 %; Lymphocytes % (auto) 16.5 %; Mean Corpuscular Hemoglobin 30.4 pg (25-34); Mean Corpuscular Hgb Conc 33.1 g/dL (32-36); Mean Corpuscular Volume 91.9 fL (80-100); Mean Platelet Volume 10.9 fL (7.4-10.4); Monocytes # (auto) 0.43 K/uL (0.11-0.59); Monocytes % (auto) 6.4 %; Neutrophils # (auto) 5.01 K/uL (1.4-6.5); Neutrophils % (auto) 75.1 %; Platelet Count 214 K/uL (130-400); RDW Coefficient of Variation 14.1 % (11.5-14.5); RDW Standard Deviation 48.1 fL (36.4-46.3); Red Blood Count 4.05 M/uL (4.2-5.4); White Blood Count 6.68 K/uL (4.8-10.8)
--- NOTE | 2020-03-20 12:58 | CT Scan Report ---
CT angio neck with con, CT angio head w con CLINICAL HISTORY: 85 years-old Female with Stroke evaluation. Acute strokelike symptoms COMPARISON STUDY: CTA head and MRA neck 03/15/2020, CTA neck 09/10/2019 TECHNIQUE: Following the IV administration of 118 mL of Optiray 320, CT angiogram of the head and nec k was performed from the aortic arch to the skull apex. Images are reviewed in the axial, sagittal, a nd coronal planes. 3-D MIPS images are created and assessed. IV contrast was administered without com plication. All measurements were calculated based on NASCET criteria. A dose lowering technique was utilized adhering to the principles of ALARA. FINDINGS: Imaged pulmonary artery is unremarkable. Moderate mixed plaque of the thoracic aortic arch. Patency o f the innominate and image bilateral subclavian arteries. The bilateral bilateral common carotid misael aleida are patent. Moderate mixed plaque in carotid bulb without high-grade stenosis. Moderate mixed pl aque of the cavernous and supraclinoid segments. Mixed plaque at the origin of the right vertebral ar brittni results in 60% luminal narrowing, unchanged. Tortuosity of the of the T1 segment left vertebral artery. It represent minimal narrowing of the distal V2 segment the level of C1-C2 secondary to uncov ertebral spurring, also unchanged. There is mild luminal narrowing of less than 50% noted within the left M1 segment. The bilateral ante rior cerebral arteries are widely patent. Calcified plaque of the distal vertebral arteries which are patent. The basilar and posterior cerebral arteries are widely patent. No aneurysm, dissection, high -grade stenosis or proximal branch occlusion. No cerebral venous sinus thrombosis. Numerous opacified collateral vessels are again noted throughout the left cerebral hemisphere which appear unchanged. T here is chronic appearing high-grade stenosis of the left transverse sinus. 9 mm hemorrhagic focus of the left temporal lobe is better seen on noncontrast enhanced study. 5 mm s ubpleural solid nodule of the right lung apex. No pneumothorax. Multilevel degenerative changes of th e spine. Chronically opacified left maxillary sinus with dense secretions IMPRESSION: 1. Stable exam without new aneurysm, dissection, high-grade stenosis or proximal branch occlusion. 2. Evolving subacute infarct of the left temporal lobe with subcentimeter acute hemorrhagic focus bet ter seen on the noncontrast head CT of same day. 3. Numerous collateral vessels throughout the left cerebral hemisphere redemonstrated with unchanged possible remote thrombus/stenosis of the left transverse sinus. 4. Unchanged mild luminal narrowing within the left middle cerebral artery. 5. Additional findings as above. ACT 112: Negative or not required by law. The above report was generated using voice recognition software. It may contain grammatical, syntax o r spelling errors. Electronically signed by: Gray Wolf M.D. 03/20/2020 12:56 PM
--- NOTE | 2020-03-20 13:01 | Electrocardiogram Report ---
Test Reason : Blood Pressure : / mmHG Vent. Rate : 068 BPM Atrial Rate : 068 BPM P-R Int : 154 ms QRS Dur : 078 ms QT Int : 416 ms P-R-T Axes : 022 -24 036 degrees QTc Int : 442 ms Poor data quality, interpretation may be adversely affected Normal sinus rhythm Normal ECG When compared with ECG of 14-MAR-2020 11:23, No significant change was found Confirmed by Howard Lundberg ([id number]) on 03/20/2020 1:00:57 PM Referred By: REFERRED SELF Confirmed By:Howard Lundberg
[2020-03-20 13:08] LABS: Partial Thromboplastin Ratio 0.8; Partial Thromboplastin Time 23.6 Seconds (21.0-31.0); Prothrombin Time 10.7 Seconds (9.0-12.0)
[2020-03-20 13:13] LABS: Alanine Aminotransferase 21 U/L (12-78); Albumin Level 3.1 gm/dl (3.4-5.0); Aspartate Aminotransferase 16 U/L (15-37); BUN Creatinine Ratio 17.1 (10-20); Blood Urea Nitrogen 13 mg/dl (7-18); Calcium 8.8 mg/dl (8.5-10.1); Carbon Dioxide 23 mmol/L (21-32); Chloride 110 mmol/L (98-107); Creatinine Clr Calc Pharmacy 50.5 ml/min; Est GFR (Non-African American) 73.4; Glucose 105 mg/dl (70-99); Magnesium 2.1 mg/dl (1.8-2.4); Potassium 3.7 mmol/L (3.5-5.1); Sodium 140 mmol/L (136-145)
[2020-03-20 13:18] LABS: Albumin Globulin Ratio 0.9 (0.9-2); Alkaline Phosphatase 91 U/L (45-117); Bilirubin,Total 0.8 mg/dl (0.2-1); Globulin 3.5 gm/dl (2.5-4.0); Total Protein 6.6 gm/dl (6.4-8.2); Troponin I < 0.015 ng/ml (0-0.045)
[2020-03-20] MEDS: niCARdipine 25 MG in SODIUM CHLORIDE 0.9% 240 ML IV SCH ×2 (13:40→17:21)
[2020-03-20] MEDS ORDERED: LORazepam 2 MG/4 ML VIAL ONE (14:42)
[2020-03-20] MEDS ORDERED: LORazepam 0.5 MG/1 ML VIAL IV PRN (14:44)
[2020-03-20] MEDS ORDERED: LORazepam 0.5 MG/1 ML VIAL IV STA (14:44)
--- NOTE | 2020-03-20 15:17 | History & Physical Report ---
Date of Service March 20, 2020 Assessment & Plan (1) Acute cerebral hemorrhage: Admit to ICU on nicardipine drip to be titrated to blood pressure. Acute hemorrhagic transformation of her prior stroke. Per telestroke and neurosurgery recommendations no surgery recommended at this stage. Unable to currently accept patient at [facility] or [facility] - given no surgery planned recommended she stays here for blood pressure management sBP 120-150. Placed on nicardipine drip to obtain this tight control and after discussion between ER physician and ICU Dr Sage she will be admitted to the ICU. (2) Word finding difficulty: secondary to above (3) Stenosis of left middle cerebral artery: Holding antiplatelets and anticoagulation due to acute hemorrhage as above. (4) Hypertension: Holding all home medication while on titrating nicardipine IV drip as above. (5) DVT prophylaxis: SCDs. Anticoagulation contraindicated. Admission and Anticipated Discharge Date Admission Date: 03/20/2020 History of Present Illness Chief Complaint: Aphasia Primary Care Provider: [facility] Emma Paz is an 85 year old female with history of CVA, word finding difficulty, colon cancer, lung mass and cerebral venous abnormality who presents to the ER with sudden onset aphasia. Unable to take any history from the patient due to asphasia. Symptom onset 11am today. Sudden onset much worse word finding difficulty similar to her prior presentations in August and last week although her reports it is much worse on this occasion. He notes she is moving all 4 limbs normally. Prior non-compliance with medication as did not feel it was helping but her reports compliance since her last discharged. On prior admission she told her "I would rather be at home, even if I I'm ready." Initial stroke-like symptoms with transient word finding difficulty in August 2019 during ER visit. CTA head showed high grade stenosis left middle cerebral artery. Per documentation at the time she left against medical advice. She was recently hospitalized from March 14 to 2019 with acute ischemic CVA causing worsening expressive dysphasia. The patient is currently unable to get out any meaningful words other than saying no when asked if she was in pain. She appears very frustrated/anxious and with not being able to get the right words out which is consistent with her prior admission. On occasion she is following commands. In the ER she was a telestroke alert and on discussion with Dr Hassan with the ER physician. No seizure prophylaxis recommended. Recommended titration between 120-150 systolic especially given concomitant M2 stenosis. Also disc ussed with neurosurgery at [facility] and did not recommend neurosurgical intervention at this time and recommended admission here. I advised confirming acceptance with the ICU as patient will be kept on nicardipine IV drip, prior to accepting admission here and [facility] who conveyed the same message also recommend staying at [facility] for blood pressure control. Given prior wishes her notes she would not have wanted surgical intervention for this. Allergies Allergy/AdvReac Type Severity Reaction Status Date / Time meperidine Allergy Mild RASH Verified 03/20/20 12:45 Bactrim Allergy Unknown rash Verified 03/22/17 08:25 doxycycline Allergy Unknown rash Verified 03/20/20 12:45 sulfamethoxazole Allergy Unknown rash Verified 03/20/20 12:45 trimethoprim Allergy Unknown rash Verified 03/20/20 12:45 hydrocodone AdvReac Mild RASH Verified 03/20/20 12:45 oxycodone AdvReac Mild N/V Verified 03/20/20 12:45 Percocet TABS Allergy Unknown Nausea Uncoded 03/20/20 12:45 Vicodin TABS Allergy Unknown Nausea Uncoded 03/20/20 12:45 Home Medications Home Medications Medication Instructions Recorded Confirmed Type amlodipine 10 mg tablet 10 mg PO DAILY #90 tab 01/28/19 03/20/20 Rx losartan 50 mg tablet 50 mg PO DAILY #90 tab 04/29/19 03/20/20 Rx amoxicillin 500 mg tablet 500 mg PO UD PRN 07/08/19 03/20/20 History atorvastatin 80 mg PO DAILY 03/14/20 03/20/20 History clopidogrel 75 mg PO DAILY 03/15/20 03/20/20 History aspirin [Aspir-Low] 81 mg PO DAILY 03/20/20 03/20/20 History Past Med/Surg History Medical History (Updated 03/21/20 @ 08:30 by Lee Clifford MD) Colon cancer Hyperlipidemia Hypertension Lung mass Osteoarthritis of left knee Osteoarthritis of right knee Osteoarthritis of shoulder Peripheral vascular disease Spinal stenosis Stroke-like symptoms Social History Smoking Status: Unknown if ever smoked Second Hand Exposure: No; Hx Alcohol Use: No Hx Substance Use: No Preferred Language: Malian Communication Ability: Effective Program Architect Required: No Beliefs That Will Affect Care: Islam Islam Beliefs: CHRISTIAN Current Living Situation: Spouse Current Living Situation Comment: [facility]DEPENDENT [facility]ING AT [facility] Other Information That Helps Us Care for You: No Feels Safe at Home: Yes Assistive Devices: Cane, Glasses and Walker Review of Systems Review of Systems: Unobtainable due to cognitive status Physical Exam Constitutional: well developed and + acute distress (appears very anxious); + not well nourished Eyes: PERRL, conjunctivae normal, anicteric sclerae ENMT: Ears: no external ear abnormality Nose: no external nose abnormality Mouth: + dry oral mucous membranes Neck: trachea midline, no thyromegaly Respiratory: normal respiratory effort, lungs clear to auscultation Cardiovascular: RRR, no murmur, no edema Gastrointestinal (Abdomen): normal bowel sounds, soft, nontender, no hepatosplenomegaly Skin: no rashes, warm and dry Neurologic: moves all extremities and awake; no focal motor deficits (no lateralizing deficit although difficult exam given pt compliance/underst) Speech / Cognition: + expressive aphasia Motor/Sensory: no tremor Cranial Nerves: PERRL, EOM intact bilaterally (grossly normal on exam but limited comprehension/compliance), tongue midline, able to rotate head bilaterally and no nystagmus Psychiatric: Orientation: alert; + not oriented x 3 Eye Contact: + poor eye contact Motor Behavior: + psychomotor agitation Thought Process: + incoherent thought process and + word salad Results & Data Results & Data ([facility]) Vital Signs (Past 12 Hours) Vital Signs Temp Pulse Resp BP Pulse Ox 03/20/20 14:29 118 H 21 147/62 H 97 03/20/20 14:16 117 H 20 97 03/20/20 14:14 118 H 23 138/51 L 97 03/20/20 14:00 120 H 25 H 143/60 H 95 03/20/20 13:51 110 H 24 151/74 H 96 03/20/20 13:45 107 H 24 171/74 H 96 03/20/20 13:30 102 H 49 H 173/80 H 96 03/20/20 13:15 81 23 173/75 H 95 03/20/20 13:00 88 19 180/91 H 95 11/01/20 12:45 82 18 160/73 H 95 03/20/20 12:30 65 18 151/66 H 95 03/20/20 12:28 37.1 C 68 18 165/60 H 95 03/20/20 12:26 94 H [address] head/brain wo con IMPRESSION: 1. Interval development of a subcentimeter hyperdense focus within the left temporal lobe suggestive of acute hemorrhagic transformation with mildly progressed left temporal lobe edema compatible with evolving subacute infarct. 2. No midline shift. CT angio neck with con, CT angio head w con\\ IMPRESSION: 1. Stable exam without new aneurysm, dissection, high-grade stenosis or proximal branch occlusion. 2. Evolving subacute infarct of the left temporal lobe with subcentimeter acute hemorrhagic focus better seen on the noncontrast head CT of same day. 3. Numerous collateral vessels throughout the left cerebral hemisphere redemonstrated with unchanged possible remote thrombus/stenosis of the left transverse sinus. 4. Unchanged mild luminal narrowing within the left middle cerebral artery. 5. Additional findings as above. ECG Rate (beats per minute): 68 Rhythm: normal sinus Findings: no acute ischemic change Comparison ECG Date: from (Mar 14, 2020) Change: no significant change Code Status & VTE Plan Code Status DNR/DNI as discussed with her , consistent with patient's previous wishes. VTE Prophylaxis Plan VTE Prophylaxis will be ordered: Yes Reason for no VTE drug order: Contraindicated PG Care Time/CCT Total # of Minutes Spent Total Time Spent with Patient: Total time spent is greater than 50% in coordination of care (as documented) at patient's floor/unit and/or counseling patient: Coding Level of Care Code 45500 Initial Inpt Care Lvl 3 Diagnoses Acute cerebral hemorrhage I61.9 Word finding difficulty R47.89 Stenosis of left middle cerebral artery I66.02 Hypertension I10 Hypertension type: unspecified DVT prophylaxis Z29.9 (1) Hypertension Hypertension type: unspecified Qualified Code(s): I10 - Essential (primary) hypertension
--- NOTE | 2020-03-20 15:42 | Critical Care Consultation ---
Date of Consultation March 20, 2020 Assessment & Plan (1) Acute cerebral hemorrhage: CT head 03/20/2020: Interval development of a subcentimeter hyperdense focus within the left temporal lobe suggestive of acute hemorrhagic transformation with mildly progressed left temporal lobe edema compatible with evolving subacute infarct. 9 x 8 mm hemorrhagic focus within the left temporal lobe. EKG 03/20/2020: Normal sinus rhythm, left axis deviation, no ST-T wave changes, QTC 442. --Acute hemorrhagic stroke Hemorrhagic conversion of the previous ischemic stroke with the patient had approximately a week ago Stop aspirin and Plavix. Patient is not on any blood thinners. Patient's highest blood pressure in the ER was systolic 172 Antihypertensive medication to keep SBP around 140. Aspiration precautions. Keep head of the bed elevated 30 degrees Neurological check every hour If there is any worsening repeat CT head. --Hypertensive emergency Given hemorrhagic stroke Keep the systolic blood pressure less than 140. --Left middle cerebral artery stenosis History of cerebrovascular disease Multiple ischemic strokes in the past --Dyslipidemia --DNR/DNI --Prophylaxis VTE: IPC's GI: Protonix Lines: Peripheral Diet: N.p.o. Plan: Neuro checks every hour Head of the bed elevation 30 degrees Keep systolic blood pressure less than 140 greater than 120 Pain control Will get official swallow eval tomorrow. If patient is not able to swallow we will try to get in NG tube. I discussed with who is POA for the patient regarding the goals of care. Patient is DNR/DNI. No life prolonging intervention. I did explain to him that there is no neurosurgery in this hospital and only thing we can offer for hemorrhagic stroke would be to make sure the blood pressure is very supposed to be. No intubation. I have personally spent 64 minutes of critical care time in the direct m anagement of this patient. This is a life/limb threatening event. This includes time spent evaluating patient, direct bedside care, chart review, placing orders, interpretation of diagnostic studies, discussion with consultants, patient, and family members, as well as other required patient management activities. This time is exclusive of all separately billable procedures, and teaching time and separate from and in addition to any other critical care service time. Please note the above document was generated using voice recognition software. It may contain grammatical, syntax or spelling errors. (2) Acute CVA (cerebrovascular accident): (3) Hypertension: (4) Chronic generalized pain: History of Present Illness History of Present Illness 85-year-old female with past medical history of hypertension, multiple ischemic stroke in the past last 1 being a week ago, learning disability was brought in by the who stated that since around 11 AM in the morning patient had difficulty expressing herself. She was having fasciculations around the neck area following which she was not able to talk. The only few words she is able to say is '' I cannot'' and '' oh God''. At the time of examination patient is not able to clearly follow commands. She does try to answer simple questions with no and yes. Patient denied any shortness of breath denied any chest pain, no headache, no dizziness, no belly pain. No fever or chills prior to this episode. No nausea or vomiting at home. No recent travel history. Patient was recently in the hospital discharged on 03/15/2020 on Plavix and aspirin for extremities told that she had CT head in the ED showed hemorrhagic conversion of the previous stroke with the hemorrhagic component being 9 x 8 mm. History was obtained from who was present at bedside as well as ED and previous records. Allergies Allergy/AdvReac Type Severity Reaction Status Date / Time meperidine Allergy Mild RASH Verified 03/20/20 12:45 Bactrim Allergy Unknown rash Verified 03/22/17 08:25 doxycycline Allergy Unknown rash Verified 03/20/20 12:45 sulfamethoxazole Allergy Unknown rash Verified 03/20/20 12:45 trimethoprim Allergy Unknown rash Verified 03/20/20 12:45 hydrocodone AdvReac Mild RASH Verified 03/20/20 12:45 oxycodone AdvReac Mild N/V Verified 03/20/20 12:45 Percocet TABS Allergy Unknown Nausea Uncoded 03/20/20 12:45 Vicodin TABS Allergy Unknown Nausea Uncoded 03/20/20 12:45 Home Medications Home Medications Medication Instructions Recorded Confirmed Type amlodipine 10 mg tablet 10 mg PO DAILY #90 tab 01/28/19 03/20/20 Rx losartan 50 mg tablet 50 mg PO DAILY #90 tab 04/29/19 03/20/20 Rx amoxicillin 500 mg tablet 500 mg PO UD PRN 07/08/19 03/20/20 History atorvastatin 80 mg PO DAILY 03/14/20 03/20/20 History clopidogrel 75 mg PO DAILY 03/15/20 03/20/20 History aspirin [Aspir-Low] 81 mg PO DAILY 03/20/20 03/20/20 History Patient History Medical History (Updated 03/20/20 @ 15:14 by Lee Clifford MD) Colon cancer Hyperlipidemia Hypertension Lung mass Osteoarthritis of left knee Osteoarthritis of right knee Osteoarthritis of shoulder Peripheral vascular disease Spinal stenosis Stroke-like symptoms Social History Smoking Status: Unknown if ever smoked Second Hand Exposure: No; Hx Alcohol Use: No Hx Substance Use: No Preferred Language: Togolese Communication Ability: Effective Golf Course Superintendent Required: No Beliefs That Will Affect Care: Bahai Bahai Beliefs: AMISH Current Living Situation: Spouse Current Living Situation Comment: [facility]DEPENDENT LIVING AT [facility] Other Information That Helps Us Care for You: No Feels Safe at Home: Yes Assistive Devices: Cane, Glasses and Walker Review of Systems Review of Systems: All systems reviewed & are unremarkable except as noted in HPI & below and Unobtainable due to mental health condition Physical Exam Physical Exam: Constitutional: No acute distress HEENT: EOMI, PERRLA, the only thing patient repeats again and again is ''oh my God'' and ''I cannot'' Respiratory system: Decreased air entry bilaterally, no wheeze, rhonchi, mild crackles bilateral lower lobes CVS: S1-S2 positive, positive 2 out of 6 murmur systolic appreciated best at the aorta Abdomen: Soft, nontender, nondistended, positive bowel sounds x4 Extremities: +2 pulses bilaterally radialis/ dorsalis pedis, no cyanosis, no edema Neuro: Patient is awake, unfortunately she does not follow commands. Right upper extremity 3 out of 5, right lower extremity 2 out of 5, left upper extremity 5 out of 5, left lower extremity 5 out of 5. Psych: Unable to assess G/U: No [place] Skin: no rashes, warm and dry Lymphatic: no cervical or axillary lymphadenopathy Results & Data Results & Data ([facility]) Vital Signs (Past 12 Hours) Vital Signs Temp Pulse Resp BP Pulse Ox 03/20/20 15:30 108 H 32 H 128/59 L 99 03/20/20 15:15 109 H 41 H 130/58 L 98 03/20/20 15:00 117 H 20 125/63 98 03/20/20 14:45 114 H 20 140/59 L 98 03/20/20 14:30 120 H 20 144/61 H 96 03/20/20 14:29 118 H 21 147/62 H 97 03/20/20 14:28 119 H 21 147/62 H 96 03/20/20 14:16 117 H 20 97 03/20/20 14:14 118 H 23 138/51 L 97 03/20/20 14:00 120 H 25 H 143/60 H 95 03/20/20 13:51 110 H 24 151/74 H 96 03/20/20 13:45 107 H 24 171/74 H 96 03/20/20 13:30 102 H 49 H 173/80 H 96 03/20/20 13:15 81 23 173/75 H 95 03/20/20 13:00 88 19 180/91 H 95 03/20/20 12:45 82 18 160/73 H 95 03/20/20 12:30 65 18 151/66 H 95 03/20/20 12:28 37.1 C 68 18 165/60 H 95 03/20/20 12:26 94 H 17 03/20/20 12:46 03/20/20 12:46 Coding Level of Care Code Critical Care 1st 30-74 mins Diagnoses Acute cerebral hemorrhage I61.9 Acute CVA (cerebrovascular accident) I63.9 Hypertension I10 Hypertension type: unspecified Chronic generalized pain R52; G89.29 Time Spent (min) 64 (1) Hypertension Hypertension type: unspecified Qualified Code(s): I10 - Essential (primary) hypertension
[2020-03-20] MEDS ORDERED: ICU PROTOCOL FOR HYPERGLYCEMIA PRN (17:12)
[2020-03-20] MEDS: D5W AND NSS 1,000 ML IV SCH (17:22)
[2020-03-20] MEDS ORDERED: ACETAMINOPHEN 1,000 MG/100 ML VIAL IV PRN (17:58)
[2020-03-20] MEDS ORDERED: ONDANSETRON INJ 2 MG/ML 2 ML VIAL IV PRN (18:17)
--- NOTE | 2020-03-20 21:35 | Communication Note ---
Date of Service: March 20, 2020 Received a call from [employer] provider regarding repeat CT of the brain. He was unable to see imaging films from earlier in the day which did demonstrate a intraparenchymal hemorrhage. This does appear to be consistent with prior imaging. He does note new area of bleed in the posterior horn of the left lateral ventricle. I am able to appreciate this on CT imaging as well. I did reassess the patient at bedside. She is able to move all 4 extremities, however she does appear to be more weak in the RIGHT upper extremity versus left. She remains aphasic. Otherwise, there have been no worsening neurological changes. Discussed with nursing staff who report no new findings otherwise. The patient did have a small run of SVT on monitor. Otherwise, nothing new to report. Her nicardipine has been able to be titrated down and systolic blood pressures have been well within the range of 120-140. 2102: Contacted [facility] teleneurology. Spoke with Dr. Deniz Carmona MD regarding concerns of new area of bleed on repeat CT imaging. He does not feel that this is a major concern at this time. He recommends follow- up EEG in the morning for evaluation of possible seizure-like component. He does not feel starting Keppra at this point is necessary. He does suggest that if there is wave spikes suggestive of seizure-like activity tomorrow, that we certainly could provide an antiepileptic medication. Otherwise, he recommends continuing current course. Repeat imaging for any changes in neurological status. He is student union consultant tonight and was very open to contacting him with any change in worsening symptoms. 2124: Spoke with Preston ([phone]). Provided update regarding new CT finding. Provided update on his as well. No further questions at this time. I have personally spent 45 minutes of critical care time in the direct management of this patient. This is a life/limb threatening event. This includes time spent evaluating patient, direct bedside care, chart review, placing orders, interpretation of diagnostic studies, discussion with consultants, patient, and family members, as well as other required patient management activities. This time is exclusive of all separately billable procedures, and teaching time and separate from and in addition to any other critical care service time. Coding Level of Care Code Critical Care mónica samuelt'l 30 min Time Spent (min) 45
[2020-03-21] MEDS: niCARdipine 25 MG in SODIUM CHLORIDE 0.9% 240 ML IV SCH ×5 (01:17→21:04)
[2020-03-21 05:07] LABS: BUN Creatinine Ratio 16.5 (10-20); Calcium 8.6 mg/dl (8.5-10.1); Creatinine Clr Calc Pharmacy 55.3 ml/min; Est GFR (African American) 91.8; Est GFR (Non-African American) 79.2; Magnesium 1.9 mg/dl (1.8-2.4); Phosphorus 2.7 mg/dl (2.5-4.9); Potassium 3.2 mmol/L (3.5-5.1)
[2020-03-21 05:15] LABS: Hematocrit (blood only) 38.4 % (37-47); Hemoglobin 12.9 g/dL (12.0-16.0); Mean Corpuscular Hemoglobin 30.6 pg (25-34); Mean Corpuscular Hgb Conc 33.6 g/dL (32-36); Mean Corpuscular Volume 91.2 fL (80-100); Platelet Count 231 K/uL (130-400); RDW Coefficient of Variation 14.3 % (11.5-14.5); Red Blood Count 4.21 M/uL (4.2-5.4); White Blood Count 15.89 K/uL (4.8-10.8)
[2020-03-21 05:16] LABS: Basophils # (auto) 0.01 K/uL (0-0.2); Basophils % (auto) 0.1 %; Echinocytes 1+; Immature Granulocytes # (auto) 0.06 K/uL (0.00-0.02); Immature Granulocytes % (auto) 0.4 %; Lymphocytes # (auto) 0.81 K/uL (1.2-3.4); Lymphocytes % (auto) 5.1 %; Monocytes # (auto) 0.78 K/uL (0.11-0.59); Monocytes % (auto) 4.9 %; Neutrophils # (auto) 14.23 K/uL (1.4-6.5); Neutrophils % (auto) 89.5 %
[2020-03-21] MEDS: POTASSIUM CHLORIDE / WTR 10 MEQ/100 ML PLCT IV SCH ×4 (06:13→09:39)
[2020-03-21] MEDS ORDERED: MAGNESIUM SULFATE / D5W 1 GM/100 ML BAG IV ONE (08:10)
--- NOTE | 2020-03-21 08:10 | CT Scan Report ---
CT head/brain wo con CLINICAL HISTORY: 85 years-old Female with re-eval hemorrhagic conversion. Follow-up study in a emanuel ent with intracranial hemorrhage with subacute infarct TECHNIQUE: Multiple axial CT images of the head were obtained without contrast. A dose lowering tech nique was utilized adhering to the principles of ALARA. CT DOSE: 537.48 mGy.cm COMPARISON: Head CT 03/20/2020 FINDINGS: 9 x 8 mm hemorrhagic focus within the left temporal lobe on image 13 series 2 is unchanged. Interval development of a new hemorrhagic focus within the left temporal lobe periventricular white matter taylor suring 8 x 5 mm with trace layering hemorrhage within the posterior horn left lateral ventricle. Ill- defined hypodensity of the left temporal lobe may reflect a subacute infarct. There is no midline art ft or hydrocephalus. Age-related involutional changes with patchy white matter hypodensity suggestive of chronic microvascular ischemic disease. Cerebral vascular calcifications. No acute calvarial fracture. Mastoid air cells and middle ear cavities are clear. Opacified left maxi llary sinus is partially imaged. IMPRESSION: 1. Stable subcentimeter hemorrhagic focus of the left temporal lobe with interval development of a ne w 8 x 5 mm hemorrhagic focus of the periventricular left temporal lobe with trace layering hemorrhage within the posterior horn left lateral ventricle. 2. Probable subacute infarct in the left temporal lobe. No midline shift or herniation. ACT 112: Negative or not required by law. The above report was generated using voice recognition software. It may contain grammatical, syntax o r spelling errors. Electronically signed by: Gray Wolf M.D. 03/21/2020 8:09 AM
--- NOTE | 2020-03-21 08:10 | Critical Care Progress Note ---
Date of Service March 21, 2020 Assessment & Plan (1) Admitted to intensive care unit: Reason Critically Ill: 85 yo female who was admitted to [facility] 1 week ago for an ischemic stroke of left temporal region, readmitted on 03/20/20 with hemorrhagic transformation. Per discussion with patient's , who is Emma' s POA, no life prolonging intervention is desired. Telestroke consult with [facility] on admission recommending no neurosurgical intervention. We are managing medically with blood pressure control at this time. NIH stroke scale score at 16 this morning. Over the past 24 hours, patient remained on Nicardipine drip for blood pressure control; drip currently running at 7.5mls/hr. Systolic blood pressures have ranged from 121-147 overnight. Plan wean drip and to transition to IV metoprolol today. OT ordered, PT once off drip. Neuro: [facility] ICU: unable to assess * Hemorrhagic CVA - patient suffered ischemic stoke of left temporal region on 03/14/20, thad dmitted on 03/20/20 with hemorrhagic transformation - head CT showing stable subcentimeter hemorrhagic focus of the left temporal lobe with interval development of a new 8 x 5 mm hemorrhagic focus of the periventricular left temporal lobe with trace layering hemorrhage within the posterior horn left lateral ventricle. - family would not want to pursue neurosurgical intervention - will manage medically - hold ASA and Plavix - not on blood thinner, coags WNL - [place] [facility] [place] --> recommend no neurosurgical intervention; EEG for evaluation of possible seizure-like component - EEG showing focal slowing localizing to the left frontotemporal region suggestive of underlying structural pathology. Neurology recommending no initiation of seizure medication at this time. - goal SBP < 140; plan to transition from nifedipine drip to metoprolol pushes today - continue neuro checks q1h - low threshold to re-image if neurologic function begins to worsen - aspiration precautions, swallow study evaulation today - neurology following, appreciate recs Cardiac: * Stenosis of left middle cerebral artery: - mild luminal narrowing < 50% within the left M1 segment identified on neck imaging during last admission - stenosis unchanged on Neck CTA from this admission - holding ASA and Plavix due to hemorrhagic CVA * Hx Hypertension - holding all home oral antihypertensives while on nicardipine drip - plan to transition to IV metoprolol 2.5mg q8h and 2.5mg prn for sys BP > 150 - goal SBP < 140 Respiratory: - CXR today to surveil for aspiration PNA - patient breathing currently well on room air - supplemental O2 as needed GI: - speech therapy recommending minced and moist diet - continue D5 with NSS 65 mls/hr - continue PPI RENAL/LYTES: - no history of underlying renal disease - Cr 0.68 on admission - replace electrolytes as necessary : - Snell in place - strict Is/Os ENDO: - adding correction factor insulin today HEME: - hemoglobin normal - no issues ID: * Leukocytosis - WBC elevated to 15, with neutrophil predominance - suspect reactive secondary to physiologic stress response - trend CBC - Nasal MRSA neg LINES/IV ACCESS: PIV , snell CODE STATUS: DNR/DNI DVT PROPHYLAXIS: bilateral SCDs, chemoprophylaxis contraindicated in the setting of acute hemorrhagic stroke Thank you for allowing us to participate in the care of this patient. Please refer to my attending physician's documentation for any further recommendations. Admission and Anticipated Discharge Date Admission Date: March 20, 2020 Supervising Physician Co-Signing Physician Notes Dr. Coulter Was the resident-physician during care of patient. I separately evaluated patient for aggarwal portions of the history and the exam. I was present during the critical portion of medical decision making, and I discussed the case with the resident. I generally agree with the findings and plan except for any additions/exceptions noted. Patient seen and examined at bedside. No acute distress. Patient is still nifedipine drip 7.5 at the time of examination. Patient is aphasic she is unable to express anything. She is able to move her left upper extremity, left lower extremity, the right upper extremity does not actively move same dose with the right lower extremity. Pupils are round and reactive to light. Positive EOMI, positive corneal. Patient had a repeat CT chest done late night 03/20/2020 which showed No change in size of the previous hemorrhagic conversion of the stroke 9 x 8 mm. But there was another bleed appreciated on the left ventricular temporal lobe 8 x 5 mm. Neurology on board we will follow recommendation. is also on board and does not want any aggressive treatments to be done. We will try to keep the patient comfortable. We will start the patient on 2.5 mg IV every 6 hours of metoprolol along with as needed pain medication. Goal is to titrate off nifedipine drip. Hypomagnesemia being replaced. I have personally spent 36 minutes of critical care time in the direct management of this patient. This is a life/limb threatening event. This includes time spent evaluating patient, direct bedside care, chart review, placing orders, interpretation of diagnostic studies, discussion with consultants, patient, and/or family members regarding treatment decisions, as well as other required patient management activities. This time is exclusive of all separately billable procedures, and teaching time and separate from and in addition to any other critical care service time. Subjective Patient unable to speak during exam today - at times nursing heard her whisper "oh god." Review of Systems Review of Systems: Unobtainable due to cognitive status Physical Exam Constitutional: well developed and well nourished Eyes: PERRL, conjunctivae normal, anicteric sclerae EOM intact bilaterally ENMT: external ear and nose normal, oropharynx normal Neck: normal visual inspection and trachea midline Respiratory: normal respiratory effort, lungs clear to auscultation Auscult ation: no crackles, no rales and no wheezes Cardiovascular: Rate/Rhythm: regular rate and regular rhythm Heart Sounds: normal S1, normal S2 and + murmur (systolic ejection ) Extremities: no pedal edema Gastrointestinal (Abdomen): normal bowel sounds, soft, nontender, no hepatosplenomegaly Skin: no rashes, warm and dry Neurologic: moves all extremities, + focal motor deficit (L UE and LE unable to move.) and + confused Speech / Cognition: + expressive aphasia Cranial Nerves: PERRL and no nystagmus Mental Status: Follows some simple commands. Unable to speak on exam today Gait: not tested Psychiatric: Orientation: alert Genitourinary: Snell catheter in place, draining yellow urine without visible blood clots Results & Data Results & Data ([facility]) Vital Signs (Past 12 Hours) Vital Signs Temp Pulse Resp BP Pulse Ox 03/21/20 07:48 36.8 C 98 H 21 138/50 L 91 03/21/20 07:30 97 H 28 H 91 03/21/20 07:00 98 H 25 H 90 03/21/20 05:48 96 H 27 H 139/61 91 03/21/20 04:48 102 H 25 H 147/64 H 92 03/21/20 04:00 36.6 C 03/21/20 03:48 96 H 24 138/72 95 03/21/20 02:48 95 H 30 H 145/68 H 93 03/21/20 01:48 91 H 24 141/66 H 99 03/21/20 00:48 102 H 24 132/64 100 03/20/20 23:56 36.3 C L 03/20/20 23:48 103 H 22 135/71 98 03/20/20 22:48 96 H 26 H 149/78 H 94 03/20/20 21:58 96 H 38 H 123/90 100 03/20/20 20:48 102 H 29 H 139/74 98 03/21/20 04:33 03/21/20 04:33 Resident Activity Tracking Resident Involvement: Resident Care Provided Care Provided: Adult Hospital Medicine
[2020-03-21] MEDS: D5W AND NSS 1,000 ML IV SCH ×2 (08:25→11:24)
--- NOTE | 2020-03-21 09:17 | Electroencephalogram ---
EEG Procedure Note Date of Service March 21, 2020 Start / End Times Start Time: 5:48 AM End Time: 6:08 AM Referring Physician Reid Go PA-C History Aphasia, hemorrhagic stroke, rule out seizure Home Medication List Home Medications Medication Instructions Recorded Confirmed Type amlodipine 10 mg tablet 10 mg PO DAILY #90 tab 01/28/19 03/20/20 Rx losartan 50 mg tablet 50 mg PO DAILY #90 tab 04/29/19 03/20/20 Rx amoxicillin 500 mg tablet 500 mg PO UD PRN 07/08/19 03/20/20 History atorvastatin 80 mg PO DAILY 03/14/20 03/20/20 History clopidogrel 75 mg PO DAILY 03/15/20 03/20/20 History aspirin [Aspir-Low] 81 mg PO DAILY 03/20/20 03/20/20 History Inpatient Medication List Nicardipine HCl 25 mg/ Sodium (Chloride) 250 mls @ 75 mls/hr IV .Q3H20M [facility]; Protocol Stop: 04/19/20 12:44 Last Admin: 03/21/20 08:24 Dose: 7.5 mg/hr, 75 mls/hr Documented by: [id number] Cosigned by: [id number] Titration: 03/21/20 08:24 Dose: 7.5 mg/hr, 75 mls/hr Documented by: [id number] Cosigned by: [id number] Titration: 03/21/20 06:57 Dose: 7.5 mg/hr, 75 mls/hr Documented by: [id number] Cosigned by: [id number] Admin: 03/21/20 05:12 Dose: 7.5 mg/hr, 75 mls/hr Documented by: [id number] Cosigned by: [id number] Titration: 03/21/20 05:08 Dose: 7.5 mg/hr, 75 mls/hr Documented by: [id number] Cosigned by: [id number] Titration: 03/21/20 02:50 Dose: 7.5 mg/hr, 75 mls/hr Documented by: [id number] Admin: 03/21/20 01:17 Dose: 5 mg/hr, 50 mls/hr Documented by: [id number] Cosigned by: [id number] Titration: 03/21/20 01:17 Dose: 5 mg/hr, 50 mls/hr Documented by: [id number] Cosigned by: [id number] Titration: 03/20/20 23:00 Dose: 5 mg/hr, 50 mls/hr Documented by: [id number] Titration: 03/20/20 20:22 Dose: 2.5 mg/hr, 25 mls/hr Documented by: [id number] Titration: 03/20/20 19:18 Dose: 5 mg/hr, 50 mls/hr Documented by: [id number] Cosigned by: [id number] Admin: 03/20/20 17:21 Dose: 5 mg/hr, 50 mls/hr Documented by: [id number] Cosigned by: [id number] Titration: 03/20/20 17:21 Dose: 5 mg/hr, 50 mls/hr Documented by: [id number] Cosigned by: [id number] Admin: 03/20/20 13:40 Dose: 5 mg/hr, 50 mls/hr Documented by: [id number] Cosigned by: [id number] Dextrose/Sodium Chloride (D5w And Nss) 1,000 mls @ 65 mls/hr IV .[id number] GAVINO Stop: 04/19/20 16:44 Last Admin: 03/21/20 08:25 Dose: 65 mls/hr Documented by: [id number] Infusion: 03/21/20 08:25 Dose: 65 mls/hr Documented by: [id number] Admin: 03/20/20 17:22 Dose: 65 mls/hr Documented by: [id number] Acetaminophen (Ofirmev) 1,000 mg in 100 mls @ 400 mls/hr IV Q8H PRN; Protocol PRN Reason: Pain Stop: 03/23/20 17:57 Last Infusion: 03/20/20 18:55 Dose: 0 mls/hr Documented by: [id number] Admin: 03/20/20 18:36 Dose: 400 mls/hr Documented by: [id number] Potassium Chloride (K Wayne / Wtr) 10 meq in 100 mls @ 100 mls/hr IV Q1H GAVINO Stop: 03/21/20 09:42 Last Admin: 03/21/20 08:24 Dose: 100 mls/hr Documented by: [id number] Infusion: 03/21/20 08:20 Dose: 100 mls/hr Documented by: [id number] Admin: 03/21/20 07:20 Dose: 100 mls/hr Documented by: [id number] Infusion: 03/21/20 07:13 Dose: 100 mls/hr Documented by: [id number] Admin: 03/21/20 06:13 Dose: 100 mls/hr Documented by: [id number] Magnesium Sulfate/Dextrose (Magnesium Sulfate / D5w) 1 gm in 100 mls @ 50 mls/hr IV ONE ONE Stop: 03/21/20 10:09 Last Admin: 03/21/20 08:32 Dose: 50 mls/hr Documented by: [id number] Ondansetron HCl (Ondansetron Inj 2 Mg/Ml 2 Ml Vial) 4 mg IV Q4H PRN PRN Reason: Nausea Stop: 04/19/20 18:16 Last Admin: 03/20/20 18:38 Dose: 4 mg Documented by: [id number] Discontinued Medications Lorazepam (Ativan) 0.5 mg in 1 mls @ 1 mls/min IV NOW STA Stop: 03/20/20 14:45 Last Admin: 03/20/20 14:50 Dose: 1 mls/min Documented by: [id number] Ioversol (Optiray 320 125ml) 118 ml IV ONCE ONE Stop: 03/20/20 12:16 Last Admin: 03/20/20 12:15 Dose: 118 ml Documented by: [id number] Lorazepam (Lorazepam 2 Mg/4 Ml Vial) Confirm Administered Dose 2 mg .ROUTE .STK- MED ONE Stop: 03/20/20 14:43 Last Admin: 03/20/20 14:50 Dose: Not Given Documented by: [id number] Miscellaneous (Stat Iv Infusion Titration Per Protocol) 1 ea N/A NOW STA Stop: 03/20/20 12:41 Last Admin: 03/20/20 12:40 Dose: 1 ea Documented by: [id number] Description This is a 21 electrode EEG with a single channel dedicated to limited EKG. The electrodes were placed in accordance with the International 10-20 system. There is a posterior dominant rhythm of 8 Hz which is symmetrically distributed and attenuates with eye opening. There is a normal anterior to posterior organization. Photic stimulation is unremarkable. There is fairly continuous moderate amplitude left frontotemporal slowing seen throughout the study ranging from 2-1/2 to 5 Hz. There is asymmetry in the frontal beta rhythm, more prominent over the right cerebral hemisphere. There are no epileptiform abnormalities. Interpretation This is an abnormal awake/drowsy EEG revealing focal slowing localizing to the left frontotemporal region suggestive of underlying structural pathology. There are no epileptiform abnormalities. These EEG findings are consistent with the observed findings on recent CT of the head including evolving left temporal lobe infarct with associated edema and hemorrhage. Again, no epileptiform abnormalities or findings suggestive of seizure activity. Further clinical correlation may be needed. [facility] EEG Procedure Codes Indication for Procedure (1) Hemorrhagic cerebrovascular accident (CVA): (2) Stenosis of left middle cerebral artery: (3) Word finding difficulty: (4) Seizure-like activity: Neurology Neurology: [id number] EEG include record awake & drowsy
--- NOTE | 2020-03-21 10:34 | Neurology Consultation ---
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 Patient's blood pressure has only been modestly elevated. No evidence of seizure activity on recently completed EEG. Patient has a significant expressive and receptive aphasia on examination. She is alert and is not hemiparetic. Agree with stopping antiplatelet therapy. Continue monitoring and medical management of hypertension. Would recommend a repeat noncontrast CT of the head to be completed tomorrow to evaluate for significant interval change. Continue to closely monitor patient's neurological status and obtain an urgent CT of the head in the event of any acute change. Patient may experience additional hemorrhagic transformation and associated edema associated with her stroke. In the event of any significant change in patient's clinical status would need to reconsider transfer to a tertiary center if wishes of patient's /POA should change and if tertiary center would be agreeable to a transfer. 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 These imaging abnormalities were observed on MRI and CT angiography completed this past spring. She was evaluated by Dr. Anaya at that time for aphasia and memory loss. The patient was admitted to [facility] last week with progressive confusion in the context of an evolving left temporal lobe infarct. She was seen again by Dr. Anaya on March 15, 2020 and completed additional imaging including MR angiography of the head and neck as well as a CTA of the head. No significant change in the previously identified vascular abnormalities was identified. The patient had refused a repeat brain MRI evaluation at that time, however. The patient was discharged on dual antiplatelet therapy. The patient was [facility] yesterday with progressive aphasia. She is a resident at [facility]. She was found to have an evolving infarct within the left temporal lobe with associated hemorrhagic transformation and progressive left temporal lobe edema. No shift or mass-effect identified. The patient did have a telestroke consultation with Dr. Hassan at [facility]. Blood pressure control was recommended. It looks like the case was also discussed with neurosurgery although there was no role for neurosurgical intervention and a transfer was not recommended. The case was also discussed with the stroke specialist at [facility] who apparently agreed that there was no immediate role for neurosurgical intervention and that the patient should stay at [facility] for further monitoring and care. The patient was admitted to the intensive care unit. She is on a nicardipine drip for blood pressure control. She has been clinically stable with persistent fairly significant expressive and receptive aphasia but intact alertness and ability to move all 4 limbs. She has not had any seizures. An EEG was completed earlier this morning and revealed left frontotemporal slowing but was negative for epileptiform abnormalities. The statue maker has discussed this patient's care and prognosis with patient's /power of movement assembler. Patient is DNR/DNI. Aware that we cannot offer any type of neurosurgical intervention here at [facility]. As above, the patient has a rather significant expressive and receptive aphasia and is unable to relay any pertinent historical information. The above information was gathered from admission records as well as records from her previous evaluations with Dr. Anaya. Family history noncontributory Allergies Allergy/AdvReac Type Severity Reaction Status Date / Time meperidine Allergy Mild RASH Verified 03/20/20 12:45 Bactrim Allergy Unknown rash Verified 03/22/17 08:25 doxycycline Allergy Unknown rash Verified 03/20/20 12:45 sulfamethoxazole Allergy Unknown rash Verified 03/20/20 12:45 trimethoprim Allergy Unknown rash Verified 03/20/20 12:45 hydrocodone AdvReac Mild RASH Verified 03/20/20 12:45 oxycodone AdvReac Mild N/V Verified 03/20/20 12:45 Percocet TABS Allergy Unknown Nausea Uncoded 03/20/20 12:45 Vicodin TABS Allergy Unknown Nausea Uncoded 03/20/20 12:45 Home Medications Home Medications Medication Instructions Recorded Confirmed Type amlodipine 10 mg tablet 10 mg PO DAILY #90 tab 01/28/19 03/20/20 Rx losartan 50 mg tablet 50 mg PO DAILY #90 tab 04/29/19 03/20/20 Rx amoxicillin 500 mg tablet 500 mg PO UD PRN 07/08/19 03/20/20 History atorvastatin 80 mg PO DAILY 03/14/20 03/20/20 History clopidogrel 75 mg PO DAILY 03/15/20 03/20/20 History aspirin [Aspir-Low] 81 mg PO DAILY 03/20/20 03/20/20 History Patient History Medical History (Updated 03/21/20 @ 10:14 by Rusty Haas MD) Colon cancer Hyperlipidemia Hypertension Lung mass Osteoarthritis of left knee Osteoarthritis of right knee Osteoarthritis of shoulder Peripheral vascular disease Spinal stenosis Stroke-like symptoms Social History Smoking Status: Unknown if ever smoked Second Hand Exposure: No; Hx Alcohol Use: No Hx Substance Use: No Preferred Language: Malagasy Communication Ability: Effective 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 Beliefs That Will Affect Care: Quaker Quaker Beliefs: YARSANI Current Living Situation: Spouse Current Living Situation Comment: [facility] AT [facility] Other Information That Helps Us Care for You: No Feels Safe at Home: Yes Assistive Devices: Cane, Glasses and Walker Review of Systems Review of Systems: Unobtainable due to cognitive status Exam (Neuro) Constitutional: well developed and well nourished; no acute distress Eyes: normal visual martínez by confrontation, PERRL, normal accommodation and EOM intact bilaterally; no fundoscopic abnormality, no nystagmus and no papilledema Cardiovascular: Vessels: normal carotid upstroke; no carotid bruit Neurologic: Oriented to:: negative Person, Place and Time Memory: negative Short Term Intact and Remote Intact Attention: Span Intact and Concentration Intact Language: negative Naming Objects and Repeating Phrases Speech Aphasia: Broca's Aphasia and Wernicke's Aphasia Fund of Knowledge: negative Current Events, Past History and Vocabulary (Testing of higher integrative/cognitive functioning is significantly limited in this patient due to her significant expressive and receptive aphasia. Thus, it is not possible to assess her orientation or memory function.) Cranial Nerves: Normal II (Visual martínez full to confrontation, visual acuity normal), III, IV, (Pupils equal round reactive to light and accommodation, eye movements normal), V (Facial sensation intact), VII (There is no facial droop or weakness), VIII (Hearing intact), IX, X (Palate elevates to midline), XI (Shoulder shrug intact) and XII (Tongue protrudes to midline) Motor Strength: Normal Lower Extremities and Normal Upper Extremities; negative Pronator Drift Motor Tone: Normal Lower Extremities and Normal Upper Extremities Muscle Bulk/Involuntary Movements: No Involuntary Movements; negative Muscle Atrophy Sensation: Light Touch Intact, Pain/Temperature Intact, Vibration Intact and Proprioception Intact (Sensory function grossly intact but cannot be reliably evaluated due to patient's significant aphasia.) Coordination: Normal; negative Limited Balance, Dysdiadochokinesia, Finger-Nose Abnormal and Heel-Grimm Abnormal Deep Tendon Reflexes: Rt Triceps: 2+, Lt Triceps: 2+, Rt Biceps: 2+, Lt Biceps: 2+, Rt Brachioradialis: 2+, Lt Brachioradialis: 2+, Rt Patellar: 2+, Lt Patellar: 2+, Rt Ankle: 2+ and Lt Ankle: 2+ Special Tests: Babinski Present (right) Details: Gait and station cannot be safely tested in the context of this patient's current medical/neurological condition. Results & Data ([facility]) Vital Signs (Past 12 Hours) Vital Signs Temp Pulse Resp BP Pulse Ox 03/21/20 08:48 100 H 22 121/59 L 93 03/21/20 08:00 99 H 18 92 03/21/20 07:48 36.8 C 98 H 21 138/50 L 91 03/21/20 07:30 97 H 28 H 91 03/21/20 07:00 98 H 25 H 90 03/21/20 05:48 96 H 27 H 139/61 91 03/21/20 04:48 102 H 25 H 147/64 H 92 03/21/20 04:00 36.6 C 03/21/20 03:48 96 H 24 138/72 95 03/21/20 02:48 95 H 30 H 145/68 H 93 03/21/20 01:48 91 H 24 141/66 H 99 03/21/20 00:48 102 H 24 132/64 100 03/20/20 23:56 36.3 C L 03/20/20 23:48 103 H 22 135/71 98 03/20/20 22:48 96 H 26 H 149/78 H 94 03/20/20 21:58 96 H 38 H 123/90 100 Laboratory Results WBC 15.89, hemoglobin 12.9, hematocrit 38.4, platelet count 231, sodium 141, potassium 3.2, BUN 11, creatinine 0.68, glucose 185, magnesium 1.9, troponin less than 0.015 Diagnostic Findings A recent CT of the head reveals stable subcentimeter hemorrhagic focus within the left temporal lobe with interval development of a new 8 x 5 mm hemorrhagic focus of the periventricular left temporal lobe with trace layering hemorrhage within the posterior horn of the lateral ventricle. Probable subacute infarct in the left temporal lobe. No midline shift or herniation. CTA of the head and neck stable compared with the previous CT angiography done earlier this year. There is a 50% stenosis within the left M1 segment. There are numerous collateral vessels throughout the left cerebral hemisphere, unchanged and consistent with remote thrombosis/stenosis of the left transverse sinus. There is unchanged mild luminal narrowing within the left middle cerebral artery. I reviewed the images as well as the radiologist's interpretation of these tests. Electrocardiogram reveals a normal sinus rhythm, 68 bpm. A transthoracic echocardiogram completed October 20, 2019 was negative for cardioembolic source. Coding Level of Care Code 99903 Initial In Care Lvl 3 Diagnoses Hemorrhagic cerebrovascular accident (CVA) I61.9 Stenosis of left middle cerebral artery I66.02 Transverse sinus thrombosis G08
[2020-03-21] MEDS ORDERED: METOPROLOL TARTRATE 1 MG/ML VIAL IV PRN (10:37)
[2020-03-21] MEDS ORDERED: GLUCAGON FOR INJ 1 MG VIAL IM PRN (10:45)
[2020-03-21] MEDS ORDERED: GLUCOSE 40% GEL 15 GM TUBE PO PRN (10:45)
[2020-03-21] MEDS ORDERED: DEXTROSE 50% 50 ML SYRINGE IV PRN (10:45)
[2020-03-21] MEDS ORDERED: GLUCOSE 10 TABS/TUBE PO PRN (10:45)
[2020-03-21] MEDS ORDERED: CARBOHYDRATES FOR HYPOGLYCEMIA PO PRN (10:45)
--- NOTE | 2020-03-21 10:57 | Billing Data ---
Date of Service March 21, 2020 Coding Level of Care Code Critical Care 1st 30-74 mins Time Spent (min) 36
[2020-03-21] MEDS: METOPROLOL TARTRATE 1 MG/ML VIAL IV SCH ×2 (11:25→17:32)
[2020-03-21] MEDS: INSULIN ASPART 100 UNITS/ML 3 ML PEN SC SCH ×3 (11:37→21:02)
--- NOTE | 2020-03-21 11:39 | XRay Report ---
SINGLE VIEW CHEST CLINICAL HISTORY: Stroke. FINDINGS: And AP, portable, semierect chest radiograph is compared to study dated 03/14/2020 and annmarie elated with chest CT dated 12/01/2013. The examination is degraded by portable technique and patient r otation. The heart is enlarged noting atherosclerotic calcification of the thoracic aorta. The pulmon shabana vasculature is noncongested. Chronic interstitial thickening and nodularity is similar to previou s. Postoperative change is noted in the right lower lung. No airspace consolidation or large pleural effusion is identified. No pneumothorax is seen. The skeletal structures are osteopenic. The bony tho rax is grossly intact. A right shoulder arthroplasty is in place. Advanced degenerative change is see n in the left shoulder. Degenerative change is noted in the thoracic spine. IMPRESSION: Cardiac enlargement with no acute cardiopulmonary abnormality. ACT 112: Negative or not required by law. Electronically signed by: Carlos Trevino M.D. 03/21/2020 11:38 AM
[2020-03-21] MEDS: MoRPHine SULFATE 2 MG/ML CARP IV PRN ×2 (13:29→21:19)
--- NOTE | 2020-03-21 14:24 | XRay Report ---
SINGLE VIEW CHEST CLINICAL HISTORY: Stroke. FINDINGS: And AP, portable, semierect chest radiograph is compared to study dated 03/20/2020 and corre lated with chest CT dated 12/01/2013. The examination is degraded by portable technique and patient ro tation. The heart is enlarged noting atherosclerotic calcification of the thoracic aorta. There is pu lmonary vascular congestion. Chronic interstitial thickening and nodularity is similar to previous. P ostoperative change is noted in the right lower lung. No large pleural effusion is identified. There are hazy bilateral opacities. No pneumothorax is seen. The skeletal structures are osteopenic. The iraj ny thorax is grossly intact. A right shoulder arthroplasty is in place. Advanced degenerative change is seen in the left shoulder. Degenerative change is noted in the thoracic spine. IMPRESSION: 1. Cardiomegaly with evidence of congestive failure. 2. There are hazy bilateral airspace opacities. This could represent developing interstitial edema an d/or a mild infectious/inflammatory pneumonitis. Clinical correlation will be required. ACT 112: Negative or not required by law. Electronically signed by: Carlos Trevino M.D. 03/21/2020 2:23 PM
[2020-03-21] MEDS ORDERED: FUROSEMIDE 40 MG in SYRINGE 0 ML IV ONE (15:00)
--- NOTE | 2020-03-21 15:10 | Hospitalist Progress Note ---
Date of Service March 21, 2020 Assessment & Plan (1) Acute cerebral hemorrhage: Presents with acute aphasia secondary to hemorrhagic conversion of recent left ischemic CVA in the temporal lobe, found to have 9 x 8 mm hemorrhagic focus in the left temporal lobe as well as an interval development of a new hemorrhagic focus within left temporal lobe periventricular white matter measuring 8 x 5 mm with trace layering hemorrhage in the posterior horn left lateral ventricle No midline shift or hydrocephalus Remains in ICU on nicardipine drip for blood pressure control. Per telestroke and neurosurgery recommendations no surgery recommended at this stage. Goal SBP 120-150. Blood pressures are at goal -Started on IV metoprolol scheduled as well and will wean off nicardipine drip -Holding home aspirin and Plavix Coags normal -Speech therapy, PT/OT Appreciate neurology consultation -EEG with left frontotemporal slowing secondary to edema and hemorrhage but no epileptiform activity, no prophylactic antiepileptics needed -Avoid hypotonic solution hyperglycemia as well as hypoglycemia SCDs only for DVT prophylaxis -Repeat head CT tomorrow to assess for interval change -Continue neurochecks Appreciate ICU management (2) Hemorrhagic cerebrovascular accident (CVA): As above (3) Word finding difficulty: secondary to above (4) Stenosis of left middle cerebral artery: Known left MCA high-grade stenosis and recent ischemic CVA the week prior to admission -Continue holding antiplatelets and anticoagulation due to acute hemorrhage as above. 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 Anticoagulation contraindicated. Disposition-continued stay in ICU while on nicardipine drip PT/OT tomorrow Admission and Anticipated Discharge Date Admission Date: March 20, 2020 Subjective Patient is nonverbal. She does shake her head no when asked if she has pain. After that, upon further questioning she waves me off. Her reports that she seems restless but cannot find a comfortable position. I discussed the case with the ICU MD. Remains on a nicardipine drip. Was also started on scheduled IV metoprolol. She had a repeat head CT which was read overnight as an another area of new intracranial hemorrhage. She does not seem to have any unilateral weakness but cannot follow commands very well. Was seen by speech therapy and tolerated most of speech evaluation. Telemetry with normal sinus rhythm Review of Systems Review of Systems: Unobtainable due to cognitive status Physical Exam Constitutional: WD/WN, vitals as above Eyes: PERRL, conjunctivae normal, anicteric sclerae ENMT: external ear and nose normal, oropharynx normal Neck: trachea midline, no thyromegaly Respiratory: normal respiratory effort, lungs clear to auscultation Cardiovascular: RRR, no murmur, no edema Chest (Breasts): Chest: normal inspection of chest Gastrointestinal (Abdomen): normal bowel sounds, soft, nontender, no hepatosplenomegaly Musculoskeletal: Extremities: extremities normal to inspection; no cyanosis and no clubbing Skin: no rashes, warm and dry Neurologic: moves all extremities and awake; no focal motor deficits (Seems to be moving all extremities although does not follow commands ) Speech / Cognition: + expressive aphasia and + receptive aphasia Motor/Sensory: no tremor and normal movement Lymphatic: no lymphedema Results & Data Results & Data ([facility]) Vital Signs (Past 12 Hours) Vital Signs Temp Pulse Resp BP Pulse Ox 03/21/20 14:30 93 H 22 91 03/21/20 14:00 91 H 23 92 03/21/20 13:48 90 20 138/60 97 03/21/20 13:30 100 H 22 03/21/20 13:00 93 H 22 03/21/20 12:48 95 H 16 133/59 L 03/21/20 12:30 36.9 C 89 30 H 93 03/21/20 12:00 81 18 92 03/21/20 11:48 92 H 29 H 127/66 92 03/21/20 11:30 68 03/21/20 11:25 102 H 123/62 03/21/20 11:00 98 H 28 H 03/21/20 10:49 104 H 35 H 123/62 03/21/20 10:30 103 H 24 93 03/21/20 10:00 99 H 17 94 03/21/20 09:49 103 H 28 H 139/74 92 03/21/20 09:30 98 H 30 H 93 03/21/20 09:00 98 H 28 H 92 03/21/20 08:49 99 H 38 H 94 03/21/20 08:48 100 H 22 121/59 L 93 03/21/20 08:00 99 H 18 92 03/21/20 07:48 36.8 C 98 H 21 138/50 L 91 03/21/20 07:30 97 H 28 H 91 03/21/20 07:00 98 H 25 H 90 03/21/20 05:48 96 H 27 H 139/61 91 03/21/20 04:48 102 H 25 H 147/64 H 92 03/21/20 04:00 36.6 C 03/21/20 03:48 96 H 24 138/72 95 Laboratory Results 03/21/20 03/21/20 03/21/20 Range/Units 15:31 11:31 04:33 WBC (4.8-10.8) K/uL RBC (4.2-5.4) M/uL Hgb (12.0-16.0) g/dL Hct (37-47) % MCV (80-100) fL MCH (25-34) pg MCHC (32-36) g/dL RDW Std Deviation (36.4-46.3) fL RDW Coeff of Ranulfo (11.5-14.5) % Plt Count (130-400) K/uL MPV (7.4-10.4) fL Immature Gran % (Auto) % Neut % (Auto) % Lymph % (Auto) % Wharton % (Auto) % Eos % (Auto) % Baso % (Auto) % Neut # (Auto) (1.4-6.5) K/uL Lymph # (Auto) (1.2-3.4) K/uL Wharton # (Auto) (0.11-0.59) K/uL Eos # (Auto) (0-0.5) K/uL Baso # (Auto) (0-0.2) K/uL Immature Gran # (Auto) (0.00-0.02) K/uL Echinocytes Sodium 141 (136-145) mmol/L Potassium 3.2 L (3.5-5.1) mmol/L Chloride 110 H (98-107) mmol/L Carbon Dioxide 22 (21-32) mmol/L Anion Gap 9.0 (3-11) BUN 11 (7-18) mg/dl Creatinine 0.68 (0.6-1.2) mg/dl Est Cr Clr Drug Dosing 55.3 ml/min Est GFR ( Amer) 91.8 Est GFR (Non-Af Amer) 79.2 BUN/Creatinine Ratio 16.5 (10-20) Glucose 185 H (70-99) mg/dl POC Glucose 148 H 149 H (70-99) mg/dl Calcium 8.6 (8.5-10.1) mg/dl Phosphorus 2.7 (2.5-4.9) mg/dl Magnesium 1.9 (1.8-2.4) mg/dl Specimen Hemolysis Nasal Screen MRSA (PCR) (Negative) 03/21/20 03/20/20 Range/Units 04:33 16:00 WBC 15.89 H (4.8-10.8) K/uL RBC 4.21 (4.2-5.4) M/uL Hgb 12.9 (12.0-16.0) g/dL Hct 38.4 (37-47) % MCV 91.2 (80-100) fL MCH 30.6 (25-34) pg MCHC 33.6 (32-36) g/dL RDW Std Deviation 48.0 H (36.4-46.3) fL RDW Coeff of Ranulfo 14.3 (11.5-14.5) % Plt Count 231 (130-400) K/uL MPV 11.0 H (7.4-10.4) fL Immature Gran % (Auto) 0.4 % Neut % (Auto) 89.5 % Lymph % (Auto) 5.1 % Wharton % (Auto) 4.9 % Eos % (Auto) 0.0 % Baso % (Auto) 0.1 % Neut # (Auto) 14.23 H (1.4-6.5) K/uL Lymph # (Auto) 0.81 L (1.2-3.4) K/uL Wharton # (Auto) 0.78 H (0.11-0.59) K/uL Eos # (Auto) 0.00 (0-0.5) K/uL Baso # (Auto) 0.01 (0-0.2) K/uL Immature Gran # (Auto) 0.06 H (0.00-0.02) K/uL Echinocytes 1+ Sodium (136-145) mmol/L Potassium (3.5-5.1) mmol/L Chloride (98-107) mmol/L Carbon Dioxide (21-32) mmol/L Anion Gap (3-11) BUN (7-18) mg/dl Creatinine (0.6-1.2) mg/dl Est Cr Clr Drug Dosing ml/min Est GFR ( Amer) Est GFR (Non-Af Amer) BUN/Creatinine Ratio (10-20) Glucose (70-99) mg/dl POC Glucose (70-99) mg/dl Calcium (8.5-10.1) mg/dl Phosphorus (2.5-4.9) mg/dl Magnesium (1.8-2.4) mg/dl Specimen Hemolysis Nasal Screen MRSA (PCR) Negative (Negative) PG Care Time/CCT Total # of Minutes Spent Total Time Spent with Patient: Total time spent is greater than 50% in coord ination of care (as documented) at patient's floor/unit and/or counseling patient: Coding Level of Care Code 96925 Subseq Hosp Care Lvl 3 Diagnoses Acute cerebral hemorrhage I61.9 Hemorrhagic cerebrovascular accident (CVA) I61.9 Word finding difficulty R47.89 Stenosis of left middle cerebral artery I66.02 Hypertension I10 Hypertension type: unspecified Transverse sinus thrombosis G08 Hypokalemia E87.6 History of cerebrovascular accident (CVA) due to ischemia Z86.73 DVT prophylaxis Z29.9 (1) Hypertension Hypertension type: unspecified Qualified Code(s): I10 - Essential (primary) hypertension
[2020-03-21] MEDS: LORazepam 1 MG/2 ML VIAL IV PRN (15:36)
[2020-03-21] MEDS ORDERED: Nursing to Pharmacy Communication SCH (17:00)
[2020-03-22] MEDS: INSULIN ASPART 100 UNITS/ML 3 ML PEN SC SCH ×5 (00:16→17:49)
[2020-03-22] MEDS: LORazepam 1 MG/2 ML VIAL IV PRN ×2 (00:20→20:37)
[2020-03-22] MEDS: METOPROLOL TARTRATE 1 MG/ML VIAL IV SCH ×2 (02:43→15:31)
[2020-03-22 05:18] LABS: Basophils # (auto) 0.01 K/uL (0-0.2); Basophils % (auto) 0.1 %; Hematocrit (blood only) 35.5 % (37-47); Hemoglobin 11.8 g/dL (12.0-16.0); Immature Granulocytes # (auto) 0.06 K/uL (0.00-0.02); Immature Granulocytes % (auto) 0.3 %; Lymphocytes % (auto) 5.2 %; Mean Corpuscular Hemoglobin 30.7 pg (25-34); Mean Corpuscular Hgb Conc 33.2 g/dL (32-36); Mean Corpuscular Volume 92.4 fL (80-100); Mean Platelet Volume 10.8 fL (7.4-10.4); Monocytes # (auto) 1.33 K/uL (0.11-0.59); Neutrophils # (auto) 16.68 K/uL (1.4-6.5); Neutrophils % (auto) 87.4 %; Platelet Count 230 K/uL (130-400); RDW Coefficient of Variation 14.5 % (11.5-14.5); Red Blood Count 3.84 M/uL (4.2-5.4); White Blood Count 19.08 K/uL (4.8-10.8)
[2020-03-22 05:49] LABS: BUN Creatinine Ratio 21.5 (10-20); Calcium 8.3 mg/dl (8.5-10.1); Creatinine Clr Calc Pharmacy 65.9 ml/min; Est GFR (African American) 97.9; Est GFR (Non-African American) 84.4; Magnesium 2.1 mg/dl (1.8-2.4); Phosphorus 1.7 mg/dl (2.5-4.9); Potassium 2.9 mmol/L (3.5-5.1)
[2020-03-22] MEDS ORDERED: POTASSIUM PHOS 3 MMOL/1 ML INFUSION IV STA (06:45)
[2020-03-22] MEDS ORDERED: POTASSIUM PHOSPHATE 21 MMOL in SODIUM CHLORIDE 0.9% 500 ML IV ONE (07:30)
[2020-03-22] MEDS: POTASSIUM CHLORIDE / WTR 10 MEQ/100 ML PLCT IV SCH ×4 (07:53→11:51)
[2020-03-22] MEDS ORDERED: FUROSEMIDE 40 MG in SYRINGE 0 ML IV ONE (08:00)
--- NOTE | 2020-03-22 08:28 | Critical Care Progress Note ---
Date of Service March 22, 2020 Assessment & Plan (1) Admitted to intensive care unit: Reason Critically Ill: 85 yo female who was admitted to [facility] 1 week ago for an ischemic stroke of left temporal region, readmitted on 03/20/20 with multiple associated hemorrhagic foci (hemorrhagic transformation). Per discussion with patient's , who is Emma' s POA, no life prolonging intervention is desired. Telestroke consult with on admission recommending no neurosurgical intervention. We are managing medically with blood pressure control at this time. Repeat Head CT this morning showing progressive hypodensity within the left posterior temporal and occipital lobes, consistent with expected evolution the subacute infarct. Slight progression of R midline shift also noted. Nifedipine drip was discontinued overnight. Goal systolic blood pressure is 120- 140s; patient's have ranged from 140-150 overnight. Increased IV metoprolol from 2.5mg to 5mg q8h. Patient had 2.2 liters of urine output over the past 24 hours in response to IV lasix. Patient continued to be restless and appeared uncomfortable overnight. She was given 1mg of morphine at 9pm and 1mg of Ativan at midnight. Patient passed her swallow study yesterday, however she continues to refuse food when offered. PT/OT today. Neuro: [facility] ICU: unable to assess * Hemorrhagic CVA - patient suffered ischemic stoke of left temporal region on 03/14/20, readmitted on 03/20/20 with hemorrhagic transformation - head CT on admission showing a subcentimeter hemorrhagic focus of the left temporal lobe with interval development of a new 8 x 5 mm hemorrhagic focus of the periventricular left temporal lobe with trace layering hemorrhage within the posterior horn left lateral ventricle. - repeat head CT 03/22: showing progressive hypodensity within the left posterior temporal and occipital lobes, consistent with expected evolution the subacute infarct. Small foci of hemorrhagic transformation and a small focus of intraventricular hemorrhage remain stable. Mild mass effect along the left lateral ventricle and 1 mm of right midline shift has slightly progressed. - telestroke consult with Dr. Gallo Carmona from [facility] on evening of 03/20/20 --> recommend no neurosurgical intervention; EEG for evaluation of possible seizure-like component - EEG 03/21/20 showing focal slowing localizing to the left frontotemporal region suggestive of underlying structural pathology. Neurology recommending no initiation of seizure medication at this time. - family would not want to pursue neurosurgical intervention - will continue with medical management - continue to hold ASA, Plavix and atorvastatin - not on blood thinner, coags WNL - goal SBP 120- 140 - continue metoprolol 2.5mg q8h; will consider increasing to 5mg if systolic remains over goal this morning vs. adding a Ca channel lilian - continue neuro checks q1h - low threshold to re-image if neurologic function begins to worsen - aspiration precautions; CXR today without evidence of aspiration PNA - neurology following, appreciate recs * Restlessness/Agitation - continue ativan and morphine prn - likely secondary to acute brain bleed Cardiac: * Stenosis of left middle cerebral artery: - mild luminal narrowing < 50% within the left M1 segment identified on neck imaging during last admission - stenosis unchanged on Neck CTA from this admission - holding ASA, Plavix, atorvastatin due to hemorrhagic CVA * Hx Hypertension - nicardipine drip discontinued overnight - continue IV metoprolol 5mg q8h and 2.5mg prn for sys BP > 150 - goal SBP 120-140 Respiratory: * Pulmonary vascular congestion - mild improvement visualized CXR today - 40mg IV lasix ordered - continue to monitor urine output - CXR showing no evidence of aspiration PNA - patient breathing currently well on room air - supplemental O2 as needed GI: - speech therapy recommending minced and moist diet, however patient has refused all food when offered - continue D5 with NSS 40 mls/hr; we will add KCl to fluid today for ongoing hypokalemia - continue PPI RENAL/LYTES: - no history of underlying renal disease - Cr 0.68 on admission - ICU electrolyte replacement protocol : - Snell in place - strict Is/Os ENDO: - sliding scale insulin ordered HEME: - hemoglobin normal - no issues ID: * Leukocytosis - WBC up to 19 from 15 with neutrophil predominance - suspect reactive secondary to physiologic stress response - CXR without evidence of consolidation - no concern for infection at this time - trend CBC - Nasal MRSA neg LINES/IV ACCESS: PIV , snell CODE STATUS: DNR/DNI DVT PROPHYLAXIS: bilateral SCDs, chemoprophylaxis contraindicated in the setting of acute hemorrhagic stroke Thank you for allowing us to participate in the care of this patient. Please refer to my attending physician's documentation for any further recommendations. Admission and Anticipated Discharge Date Admission Date: March 20, 2020 Supervising Physician Co-Signing Physician Notes Dr. Coulter Was the resident-physician during care of patient. I separately evaluated patient for aggarwal portions of the history and the exam. I was present during the critical portion of medical decision making, and I discussed the case with the resident. I generally agree with the findings and plan except for any additions/exceptions noted. Patient seen and examined at bedside. No acute distress Overnight patient was restless for which she got 1 dose of Ativan around 3 AM and morphine. At the time of examination today patient is actively moving her left upper extremity. She is aphasic. Does not follow commands. Nods her head no to some questions but is not persistent and answering them. Blood pressure is controlled with IV metoprolol which we will increase to 5 mg every 8 hours. Hydralazine 10 mg every 6 hours as needed systolic blood pressure greater than [address] head 03/22/2020:Small foci of hemorrhagic transformation and a small focus of intraventricular hemorrhage remain stable. Mild mass effect along the left lateral ventricle and 1 mm of right midline shift has slightly progressed. There is mild mass-effect is seen on the latest CT. I will give a dose of Decadron to decrease the swelling if possible. Hypokalemia and hypophosphatemia are being replaced. Chest x-ray from today shows improvement in the vascular congestion. Continue with diuretics. Repeat BMP mag [place] later today. Neurology on board we will follow recommendation. is also on board and does not want any aggressive treatments to be done. We will try to keep the patient comfortable. As patient is off IV drip. She could be transitioned off the ICU to a med telemetry floor. Blood pressure monitoring as above. Overall prognosis is guarded. This time is exclusive of all separately billable procedures, and teaching time and separate from and in addition to any other critical care service time. Subjective Patient is still largely unable to communicate on exam today - when asked to nod her head if she has chest pain, she nods yes. Nursing reported similar behavior overnight to what was observed yesterday, which included the patient frequently repositioning herself. Review of Systems Cardiovascular: + chest pain Physical Exam Constitutional: well developed and well nourished Eyes: PERRL, conjunctivae normal, anicteric sclerae EOM intact bilaterally ENMT: external ear and nose normal, oropharynx normal Neck: normal visual inspection and trachea midline Respiratory: normal respiratory effort, lungs clear to auscultation Auscultation: no crackles, no rales and no wheezes Cardiovascular: Rate/Rhythm: regular rate and regular rhythm Heart Sounds: normal S1, normal S2 and + murmur (systolic ejection ) Extremities: no pedal edema Gastrointestinal (Abdomen): normal bowel sounds, soft, nontender, no hepatosplenomegaly Skin: no rashes, warm and dry Neurologic: moves all extremities, + focal motor deficit (L UE and LE unable to move.) and + confused Speech / Cognition: + expressive aphasia Cranial Nerves: PERRL and no nystagmus Psychiatric: Orientation: alert Results & Data Results & Data ([facility]) Vital Signs (Past 12 Hours) Vital Signs Temp Pulse Pulse Resp BP BP Pulse Ox 03/22/20 06:00 89 26 H 157/71 H 93 03/22/20 04:00 36.8 C 82 32 H 130/52 L 93 03/22/20 03:00 82 26 H 136/60 03/22/20 02:43 87 128/60 03/22/20 02:00 90 28 H 128/60 03/22/20 00:00 36.6 C 90 95 H 24 115/90 93 03/21/20 22:00 93 H 22 143/56 H 93 Resident Activity Tracking Resident Involvement: Resident Care Provided Care Provided: Adult Hospital Medicine
--- NOTE | 2020-03-22 08:44 | XRay Report ---
XR chest 1V portable HISTORY: 85 years-old Female f/u acute shortness of breath COMPARISON: Chest radiograph 03/21/2020 TECHNIQUE: Portable AP view of the chest FINDINGS: Cardiac silhouette is mildly enlarged. Mildly improved aeration of the lungs with decreased interstit ial opacities. There are persistent bibasilar densities without pneumothorax or large pleural effusio n. Surgical suture material of the right midlung. Degenerative changes of the spine and left shoulder . The patient is rotated towards the left. Right shoulder total joint arthroplasty. IMPRESSION: 1. Cardiomegaly with mildly improved pulmonary edema. 2. Persistent bibasilar opacities suggestive of atelectasis versus pneumonitis. ACT 112: Negative or not required by law. The above report was generated using voice recognition software. It may contain grammatical, syntax o r spelling errors. Electronically signed by: Gray Wolf M.D. 03/22/2020 8:43 AM
--- NOTE | 2020-03-22 09:02 | Neurology Progress Note ---
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 Patient has been agitated and restless and has received some sedatives overnight. She is a bit less alert and attentive today and is exhibiting a slight right hemiparesis as compared to yesterday. I would like her to have a repeat noncontrast CT of the head today to reevaluate her evolving hemorrhage. If patient's hemorrhage is progressive would have her remain off atorvastatin for the time being. If her hemorrhage has stabilized, would consider restarting atorvastatin at a lower dose or possibly switching to rosuvastatin. Admission and Anticipated Discharge Date Admission Date: March 20, 2020 Subjective Follow-up for hemorrhagic stroke The patient remains globally aphasic. She is slightly more lethargic this morning and slightly agitated. She does not move the right arm and leg as spontaneously as she did yesterday and tends to keep the right leg in an extended posture. Attention is modestly reduced. I did review the nursing records which indicate periods of restlessness. She has been treated with IV lorazepam and morphine at different timeframes. Patient remains on a nicardipine drip and metoprolol every 8 hours to address hypertension. She has not had any observed seizures. Review of Systems Review of Systems: Unobtainable due to cognitive status Results & Data ([facility]) Vital Signs (Past 12 Hours) Vital Signs Temp Pulse Pulse Resp BP BP Pulse Ox 03/22/20 06:00 89 26 H 157/71 H 93 03/22/20 04:00 36.8 C 82 32 H 130/52 L 93 03/22/20 03:00 82 26 H 136/60 03/22/20 02:43 87 128/60 03/22/20 02:00 90 28 H 128/60 03/22/20 00:00 36.6 C 90 95 H 24 115/90 93 03/21/20 22:00 93 H 22 143/56 H 93 Exam (Neuro) Constitutional: + altered mental status and + lethargic (mild) Neurologic: Oriented to:: negative Person, Place and Time Attention: negative Span Intact (mildly reduced) Language: negative Naming Objects and Repeating Phrases Speech Aphasia: Aphasia (Expressive and receptive aphasia present) Fund of Knowledge: negative Vocabulary Cranial Nerves: Normal II, III, IV, and VII Motor Strength: Hemiparesis (Mild right hemiparesis affecting the arm and leg noted.); negative Normal Lower Extremities and Normal Upper Extremities Hypertonicity: Arms Laterality: Right and Legs Laterality: Right Muscle Bulk/Involuntary Movements: No Involuntary Movements Deep Tendon Reflexes: Rt Biceps: 3+, Lt Biceps: 2+, Rt Patellar: 3+ and Lt Patellar: 2+ Special Tests: Babinski Present (The right plantar response is strongly flexor, left plantar response downgoing.) Coding Level of Care Code 54187 Subseq Hosp Care Lvl 2 Diagnoses Hemorrhagic cerebrovascular accident (CVA) I61.9 Stenosis of left middle cerebral artery I66.02 Transverse sinus thrombosis G08
--- NOTE | 2020-03-22 09:57 | CT Scan Report ---
HEAD CT NONCONTRAST CT DOSE: 614.27 mGy.cm HISTORY: Follow-up Intracranial hemorrhage, evaluate for change TECHNIQUE: Multiaxial CT images of the head were performed without the use of intravenous contrast. A utomated exposure control was utilized for this study. A dose lowering technique was utilized adheri ng to the principles of ALARA. Comparison: Head CT 03/20/2020. Findings: Near complete opacification of the left maxillary sinus, unchanged. The mastoid air cells a re clear. The calvarium and skull base are intact. Progressive hypodensity seen within the left poste rior temporal and occipital lobes consistent with expected evolution of the subacute infarct. There i s mild mass effect on the left lateral ventricle which has progressed. There is 1 mm of right midline shift. Trace intraventricular hemorrhage within the left occipital horn remains unchanged. The addit ional small foci of intraventricular hemorrhage within the left posterior temporal lobe are also not significantly changed. Note new areas of intracranial hemorrhage identified. Impression: 1. Progressive hypodensity within the left posterior temporal and occipital lobes consistent with exp ected evolution the subacute infarct. Small foci of hemorrhagic transformation and a small focus of i ntraventricular hemorrhage remain stable. 2. Mild mass effect along the left lateral ventricle and 1 mm of right midline shift has slightly pro gressed. Continued follow-up recommended. ACT 112: Negative or not required by law. Electronically signed by: Noah Bates M.D. 03/22/2020 9:56 AM
[2020-03-22] MEDS ORDERED: hydrALAZINE HCL 20 MG/ML VIAL IV PRN (10:09)
[2020-03-22] MEDS ORDERED: POTASSIUM CHLORIDE 40 MEQ in D5W AND NSS 1,000 ML IV SCH (10:15)
[2020-03-22] MEDS ORDERED: METOPROLOL TARTRATE 1 MG/ML VIAL IV SCH (10:30)
--- NOTE | 2020-03-22 11:26 | Billing Data ---
Date of Service March 22, 2020 Coding Level of Care Code 48995 Initial Inpt Care Lvl 3
[2020-03-22 11:35] LABS: Appearance Urine Clear (Clear); Bacteria Urine Automated Negative (Negative); Bilirubin Urine Negative (Negative); Blood Urine 1+ (Negative); Color Urine Yellow; Glucose Urine UA Negative (Negative); Ketones Urine Negative (Negative); Leukocyte Esterase Urine Negative (Negative); Nitrite Urine Negative (Negative); Protein Urine Negative (Negative); RBC Urine Automated 0-4 /hpf (0-4); Specific Gravity Urine 1.009 (1.000-1.030); Urobilinogen Urine Negative (Negative)
--- NOTE | 2020-03-22 13:24 | Hospitalist Progress Note ---
Date of Service March 22, 2020 Assessment & Plan (1) Comfort measures only status: Transitioning to comfort measures only as per my discussion with the patient's on the evening of 03/22 With hemorrhagic CVA with development of mild mass-effect along the left lateral ventricle and 1 mm of right midline shift slightly progressed from previous on repeat CT scan Patient with right-sided hemiparesis, severe expressive and receptive aphasia, development of restlessness, agitation, inability or refusal to eat/drink is clear that she does not want any artificial IV fluids or artificial hydration and would want to be made comfortable in this situation. As per my discussion with neurology, her prognosis for recovery is extremely poor. Continue morphine as needed for pain or breathlessness Continue lorazepam as needed for anxiety or agitation Add atropine drops as needed for excessive secretions Stop all lab draws, no further CT scans of the head, no Accu-Cheks or insulin, no oral or IV medications. No IV fluids or artificial nutrition requests that transfer back to [facility] be expedited if possible tomorrow on a [employer] status Palliative care consultation requested (2) Acute cerebral hemorrhage: Presents with acute aphasia secondary to hemorrhagic conversion of recent left ischemic CVA in the temporal lobe, found to have 9 x 8 mm hemorrhagic focus in the left temporal lobe as well as an interval development of a new hemorrhagic focus within left temporal lobe periventricular white matter measuring 8 x 5 mm with trace layering hemorrhage in the posterior horn left lateral ventricle No midline shift or hydrocephalus initially but now development of midline shift on 03/23 and with worsening mental status and worsening neurological deficits. Initially was in ICU on nicardipine drip for blood pressure control. Now weaned off nicardipine and was on IV Lopressor Per telestroke and neurosurgery recommendations no surgery recommended at this stage. 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: Known left MCA high-grade stenosis and recent ischemic CVA the week prior to admission (6) Hypertension: No further medications after transition to comfort measures (7) Transverse sinus 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 with associated venous collaterals throughout the left cerebral hemisphere Holding home antiplatelets as above for intracranial hemorrhage (8) Hypokalemia: Replaced with IV potassium chloride No further labs on [employer] (9) History of cerebrovascular accident (CVA) due to ischemia: History of recent left temporal ischemic CVA 1 week prior to admission Holding home antiplatelets and statin as above (10) DVT prophylaxis: Discontinue SCDs on CML Disposition-transition to medical floor with comfort measures only, is hopeful to get her transitioned back to [facility] soon as possible on comfort measures Discussed care with nursing Admission and Anticipated Discharge Date Admission Date: March 20, 2020 Subjective Patient lethargic and does not respond to questions or commands. She does not track my voice. She rolls her eyes up at the ceiling at times and appears restless and agitated. I discussed her case with neurology and the bulk sausage casing tier off. She was weaned off nicardipine drip overnight. Repeat head CT with worsening cerebral edema with now some midline shift. She is not eating or drinking or even recognizing food or drink when offered to her lips as per nursing staff Review of Systems Review of Systems: Unobtainable due to cognitive status Physical Exam Constitutional: + ill appearing, average body habitus and + lethargic Eyes: + conjunctival abnormality (mild injection), + anicteric sclerae and PERRL ENMT: No facial droop Neck: trachea midline, no thyromegaly Respiratory: + tachypneic Auscultation: no crackles, no rhonchi and no wheezes Cardiovascular: RRR, no murmur, no edema Chest (Breasts): Chest: normal inspection of chest Gastrointestinal (Abdomen): normal bowel sounds, soft, nontender, no hepatosplenomegaly Musculoskeletal: Extremities: extremities normal to inspection; no cyanosis and no clubbing Skin: no rashes, warm and dry Neurologic: + focal motor deficit (Not spontaneously moving the right side but is spontaneously moving left ) and + confused Speech / Cognition: + expressive aphasia and + receptive aphasia Motor/Sensory: no tremor Psychiatric: Orientation: alert; + uncooperative Eye Contact: + poor eye contact Results & Data Results & Data ([facility]) Vital Signs (Past 12 Hours) Vital Signs Temp Pulse Pulse Resp BP BP Pulse Ox 03/22/20 10:35 92 H 155/69 H 03/22/20 10:01 95 H 34 H 152/75 H 03/22/20 10:00 99 H 39 H 03/22/20 09:44 93 H 27 H 03/22/20 09:01 87 30 H 143/63 H 03/22/20 09:00 83 31 H 03/22/20 08:30 90 35 H 03/22/20 08:02 88 30 H 151/100 H 03/22/20 08:00 90 32 H 03/22/20 07:30 36.8 C 93 H 29 H 93 03/22/20 07:01 89 22 127/79 03/22/20 07:00 89 22 03/22/20 06:00 89 26 H 157/71 H 93 03/22/20 04:00 36.8 C 82 32 H 130/52 L 93 03/22/20 03:00 82 26 H 136/60 03/22/20 02:43 87 128/60 03/22/20 02:00 90 28 H 128/60 Laboratory Results 03/22/20 03/22/20 03/22/20 Range/Units 17:29 14:41 12:00 WBC (4.8-10.8) K/uL RBC (4.2-5.4) M/uL Hgb (12.0-16.0) g/dL Hct (37-47) % MCV (80-100) fL MCH (25-34) pg MCHC (32-36) g/dL RDW Std Deviation (36.4-46.3) fL RDW Coeff of Ranulfo (11.5-14.5) % Plt Count (130-400) K/uL MPV (7.4-10.4) fL Immature Gran % (Auto) % Neut % (Auto) % Lymph % (Auto) % Villalba % (Auto) % Eos % (Auto) % Baso % (Auto) % Neut # (Auto) (1.4-6.5) K/uL Lymph # (Auto) (1.2-3.4) K/uL [place] # (Auto) (0.11-0.59) K/uL Eos # (Auto) (0-0.5) K/uL Baso # (Auto) (0-0.2) K/uL Immature Gran # (Auto) (0.00-0.02) K/uL Sodium 136 (136-145) mmol/L Potassium 3.4 L D (3.5-5.1) mmol/L Chloride 105 (98-107) mmol/L Carbon Dioxide 26 (21-32) mmol/L Anion Gap 5.0 (3-11) BUN 14 (7-18) mg/dl Creatinine 0.64 (0.6-1.2) mg/dl Est Cr Clr Drug Dosing 57.7 ml/min Est GFR ( Amer) 93.6 Est GFR (Non-Af Amer) 80.8 BUN/Creatinine Ratio 21.5 H (10-20) Glucose 121 H (70-99) mg/dl POC Glucose 129 H 143 H (70-99) mg/dl Calcium 8.5 (8.5-10.1) mg/dl Phosphorus 2.2 L (2.5-4.9) mg/dl Magnesium 2.2 (1.8-2.4) mg/dl Specimen Hemolysis Urine Color Urine Appearance (Clear) Urine pH (4.5-7.5) Ur Specific [place] (1.000-1.030) Urine Protein (Negative) Urine Glucose (UA) (Negative) Urine Ketones (Negative) Urine Blood (Negative) Urine Nitrite (Negative) Urine Bilirubin (Negative) Urine Urobilinogen (Negative) Ur Leukocyte Esterase (Negative) Urine WBC (Auto) (0-5) /hpf Urine RBC (Auto) (0-4) /hpf U Hyaline Cast (Auto) (0-5) /lpf U Epithel Cells (Auto) (0-5) /lpf Urine Bacteria (Auto) (Negative) 03/22/20 03/22/20 03/22/20 Range/Units 11:10 08:01 05:03 WBC 19.08 H (4.8-10.8) K/uL RBC 3.84 L (4.2-5.4) M/uL Hgb 11.8 L (12.0-16.0) g/dL Hct 35.5 L (37-47) % MCV 92.4 (80-100) fL MCH 30.7 (25-34) pg MCHC 33.2 (32-36) g/dL RDW Std Deviation 49.0 H (36.4-46.3) fL RDW Coeff of Ranulfo 14.5 (11.5-14.5) % Plt Count 230 (130-400) K/uL MPV 10.8 H (7.4-10.4) fL Immature Gran % (Auto) 0.3 % Neut % (Auto) 87.4 % Lymph % (Auto) 5.2 % Villalba % (Auto) 7.0 % Eos % (Auto) 0.0 % Baso % (Auto) 0.1 % Neut # (Auto) 16.68 H (1.4-6.5) K/uL Lymph # (Auto) 1.00 L (1.2-3.4) K/uL [place] # (Auto) 1.33 H (0.11-0.59) K/uL Eos # (Auto) 0.00 (0-0.5) K/uL Baso # (Auto) 0.01 (0-0.2) K/uL Immature Gran # (Auto) 0.06 H (0.00-0.02) K/uL Sodium (136-145) mmol/L Potassium (3.5-5.1) mmol/L Chloride (98-107) mmol/L Carbon Dioxide (21-32) mmol/L Anion Gap (3-11) BUN (7-18) mg/dl Creatinine (0.6-1.2) mg/dl Est Cr Clr Drug Dosing ml/min Est GFR ( Amer) Est GFR (Non-Af Amer) BUN/Creatinine Ratio (10-20) Glucose (70-99) mg/dl POC Glucose 126 H (70-99) mg/dl Calcium (8.5-10.1) mg/dl Phosphorus (2.5-4.9) mg/dl Magnesium (1.8-2.4) mg/dl Specimen Hemolysis Urine Color Yellow Urine Appearance Clear (Clear) Urine pH 7.0 (4.5-7.5) Ur Specific [place] 1.009 (1.000-1.030) Urine Protein Negative (Negative) Urine Glucose (UA) Negative (Negative) Urine Ketones Negative (Negative) Urine Blood 1+ H (Negative) Urine Nitrite Negative (Negative) Urine Bilirubin Negative (Negative) Urine Urobilinogen Negative (Negative) Ur Leukocyte Esterase Negative (Negative) Urine WBC (Auto) 1-5 (0-5) /hpf Urine RBC (Auto) 0-4 (0-4) /hpf U Hyaline Cast (Auto) 1-5 (0-5) /lpf U Epithel Cells (Auto) 10-20 H (0-5) /lpf Urine Bacteria (Auto) Negative (Negative) 03/22/20 03/22/20 03/22/20 Range/Units 05:03 04:48 00:14 WBC (4.8-10.8) K/uL RBC (4.2-5.4) M/uL Hgb (12.0-16.0) g/dL Hct (37-47) % MCV (80-100) fL MCH (25-34) pg MCHC (32-36) g/dL RDW Std Deviation (36.4-46.3) fL RDW Coeff of Ranulfo (11.5-14.5) % Plt Count (130-400) K/uL MPV (7.4-10.4) fL Immature Gran % (Auto) % Neut % (Auto) % Lymph % (Auto) % [place] % (Auto) % Eos % (Auto) % Baso % (Auto) % Neut # (Auto) (1.4-6.5) K/uL Lymph # (Auto) (1.2-3.4) K/uL [place] # (Auto) (0.11-0.59) K/uL Eos # (Auto) (0-0.5) K/uL Baso # (Auto) (0-0.2) K/uL Immature Gran # (Auto) (0.00-0.02) K/uL Sodium 139 (136-145) mmol/L Potassium 2.9 L (3.5-5.1) mmol/L Chloride 107 (98-107) mmol/L Carbon Dioxide 25 (21-32) mmol/L Anion Gap 7.0 (3-11) BUN 12 (7-18) mg/dl Creatinine 0.56 L (0.6-1.2) mg/dl Est Cr Clr Drug Dosing 65.9 ml/min Est GFR ( Amer) 97.9 Est GFR (Non-Af Amer) 84.4 BUN/Creatinine Ratio 21.5 H (10-20) Glucose 137 H (70-99) mg/dl POC Glucose 162 H 142 H (70-99) mg/dl Calcium 8.3 L (8.5-10.1) mg/dl Phosphorus 1.7 L D (2.5-4.9) mg/dl Magnesium 2.1 (1.8-2.4) mg/dl Specimen Hemolysis Urine Color Urine Appearance (Clear) Urine pH (4.5-7.5) Ur Specific [place] (1.000-1.030) Urine Protein (Negative) Urine Glucose (UA) (Negative) Urine Ketones (Negative) Urine Blood (Negative) Urine Nitrite (Negative) Urine Bilirubin (Negative) Urine Urobilinogen (Negative) Ur Leukocyte Esterase (Negative) Urine WBC (Auto) (0-5) /hpf Urine RBC (Auto) (0-4) /hpf U Hyaline Cast (Auto) (0-5) /lpf U Epithel Cells (Auto) (0-5) /lpf Urine Bacteria (Auto) (Negative) 03/21/20 Range/Units 20:59 WBC (4.8-10.8) K/uL RBC (4.2-5.4) M/uL Hgb (12.0-16.0) g/dL Hct (37-47) % MCV (80-100) fL MCH (25-34) pg MCHC (32-36) g/dL RDW Std Deviation (36.4-46.3) fL RDW Coeff of Ranulfo (11.5-14.5) % Plt Count (130-400) K/uL MPV (7.4-10.4) fL Immature Gran % (Auto) % Neut % (Auto) % Lymph % (Auto) % [place] % (Auto) % Eos % (Auto) % Baso % (Auto) % Neut # (Auto) (1.4-6.5) K/uL Lymph # (Auto) (1.2-3.4) K/uL [place] # (Auto) (0.11-0.59) K/uL Eos # (Auto) (0-0.5) K/uL Baso # (Auto) (0-0.2) K/uL Immature Gran # (Auto) (0.00-0.02) K/uL Sodium (136-145) mmol/L Potassium (3.5-5.1) mmol/L Chloride (98-107) mmol/L Carbon Dioxide (21-32) mmol/L Anion Gap (3-11) BUN (7-18) mg/dl Creatinine (0.6-1.2) mg/dl Est Cr Clr Drug Dosing ml/min Est GFR ( Amer) Est GFR (Non-Af Amer) BUN/Creatinine Ratio (10-20) Glucose (70-99) mg/dl POC Glucose 140 H (70-99) mg/dl Calcium (8.5-10.1) mg/dl Phosphorus (2.5-4.9) mg/dl Magnesium (1.8-2.4) mg/dl Specimen Hemolysis Urine Color Urine Appearance (Clear) Urine pH (4.5-7.5) Ur Specific [place] (1.000-1.030) Urine Protein (Negative) Urine Glucose (UA) (Negative) Urine Ketones (Negative) Urine Blood (Negative) Urine Nitrite (Negative) Urine Bilirubin (Negative) Urine Urobilinogen (Negative) Ur Leukocyte Esterase (Negative) Urine WBC (Auto) (0-5) /hpf Urine RBC (Auto) (0-4) /hpf U Hyaline Cast (Auto) (0-5) /lpf U Epithel Cells (Auto) (0-5) /lpf Urine Bacteria (Auto) (Negative) Diagnostic Findings HEAD CT NONCONTRAST CT DOSE: 614.27 mGy.cm HISTORY: Follow-up Intracranial hemorrhage, evaluate for change TECHNIQUE: Multiaxial CT images of the head were performed without the use of intravenous contrast. Automated exposure control was utilized for this study. A dose lowering technique was utilized adhering to the principles of ALARA. Comparison: Head CT 03/20/2020. Findings: Near complete opacification of the left maxillary sinus, unchanged. The mastoid air cells are clear. The calvarium and skull base are intact. Progressive hypodensity seen within the left posterior temporal and occipital lobes consistent with expected evolution of the subacute infarct. There is mild mass effect on the left lateral ventricle which has progressed. There is 1 mm of right midline shift. Trace intraventricular hemorrhage within the left occipital horn remains unchanged. The additional small foci of intraventricular hemorrhage within the left posterior temporal lobe are also not significantly changed. Note new areas of intracranial hemorrhage identified. Impression: 1. Progressive hypodensity within the left posterior temporal and occipital lobes consistent with expected evolution the subacute infarct. Small foci of hemorrhagic transformation and a small focus of intraventricular hemorrhage remain stable. 2. Mild mass effect along the left lateral ventricle and 1 mm of right midline shift has slightly progressed. Continued follow-up recommended. PG Care Time/CCT Total # of Minutes Spent Total Time Spent with Patient: Total time spent is greater than 50% in coordination of care (as documented) at patient's floor/unit and/or counseling patient: Coding Level of Care Code 71067 Subseq Hosp Care Lvl 3 Diagnoses Comfort measures only status Z51.5 Acute cerebral hemorrhage I61.9 Hemorrhagic cerebrovascular accident (CVA) I61.9 Word finding difficulty R47.89 Stenosis of left middle cerebral artery I66.02 Hypertension I10 Hypertension type: unspecified Transverse sinus thrombosis G08 Hypokalemia E87.6 History of cerebrovascular accident (CVA) due to ischemia Z86.73 DVT prophylaxis Z29.9 (1) Hypertension Hypertension type: unspecified Qualified Code(s): I10 - Essential (primary) hypertension
[2020-03-22 15:29] LABS: BUN Creatinine Ratio 21.5 (10-20); Calcium 8.5 mg/dl (8.5-10.1); Creatinine Clr Calc Pharmacy 57.7 ml/min; Est GFR (African American) 93.6; Est GFR (Non-African American) 80.8; Magnesium 2.2 mg/dl (1.8-2.4); Phosphorus 2.2 mg/dl (2.5-4.9); Potassium 3.4 mmol/L (3.5-5.1)
[2020-03-22] MEDS: niCARdipine 25 MG in SODIUM CHLORIDE 0.9% 240 ML IV SCH (15:30)
[2020-03-22] MEDS ORDERED: ATROPINE SULFATE 1% OP SOLN 5 ML BTL PO PRN (17:53)
[2020-03-22] MEDS: MoRPHine SULFATE 2 MG/ML CARP IV PRN (18:22)
[2020-03-23] MEDS: MoRPHine SULFATE 2 MG/ML CARP IV PRN (00:41)
[2020-03-23] MEDS: LORazepam 1 MG/2 ML VIAL IV PRN (10:38)
--- NOTE | 2020-03-23 11:53 | Discharge Summary ---
Date of Service March 23, 2020 Admission HPI Per Admitting Provider Emma Pza is an 85 year old female with history of CVA, word finding difficulty, colon cancer, lung mass and cerebral venous abnormality who presents to the ER with sudden onset aphasia. Unable to take any history from the patient due to asphasia. Symptom onset 11am today. Sudden onset much worse word finding difficulty similar to her prior presentations in August and last week although her reports it is much worse on this occasion. He notes she is moving all 4 limbs normally. Prior non-compliance with medication as did not feel it was helping but her reports compliance since her last discharged. On prior admission she told her "I would rather be at home, even if I I'm ready." Initial stroke-like symptoms with transient word finding difficulty in August 2019 during ER visit. CTA head showed high grade stenosis left middle cerebral artery. Per documentation at the time she left against medical advice. She was recently hospitalized from March 14 to 2019 with acute ischemic CVA causing worsening expressive dysphasia. The patient is currently unable to get out any meaningful words other than saying no when asked if she was in pain. She appears very frustrated/anxious and with not being able to get the right words out which is consistent with her prior admission. On occasion she is following commands. In the ER she was a telestroke alert and on discussion with Dr Hassan with the ER physician. No seizure prophylaxis recommended. Recommended titration between 120-150 systolic especially given concomitant M2 stenosis. Also discussed with neurosurgery at [facility] and did not recommend neurosurgical intervention at this time and recommended admission here. I advised confirming acceptance with the ICU as patient will be kept on nicardipine IV drip, prior to accepting admission here and after further discussions with [facility] neurology who conveyed the same message also recommend staying at [facility] for blood pressure control. Given prior wishes her notes she would not have wanted surgical intervention for this. Principal Diagnosis Hemorrhagic conversion of previous ischemic stroke Discharge Exam Constitutional WD/WN, vitals as above + ill appearing and average body habitus Eyes + conjunctival abnormality (mild injection), + anicteric sclerae and PERRL Neck trachea midline, no thyromegaly Respiratory + tachypneic Auscultation: no crackles, no rhonchi and no wheezes Cardiovascular RRR, no murmur, no edema Chest (Breasts) Chest: normal inspection of chest Gastrointestinal (Abdomen) normal bowel sounds, soft, nontender, no hepatosplenomegaly Musculoskeletal Extremities: extremities normal to inspection; no cyanosis and no clubbing Skin no rashes, warm and dry Neurologic + focal motor deficit (right side weaker but moving it somewhat today spontaneously) and + confused Speech / Cognition: + expressive aphasia and + receptive aphasia Motor/Sensory: no tremor Psychiatric Orientation: alert; + uncooperative Eye Contact: + poor eye contact Lymphatic no lymphedema Discharge Data Allergies Allergy/AdvReac Type Severity Reaction Status Date / Time meperidine Allergy Mild RASH Verified 03/20/20 12:45 Bactrim Allergy Unknown rash Verified 03/22/17 08:25 doxycycline Allergy Unknown rash Verified 03/20/20 12:45 sulfamethoxazole Allergy Unknown rash Verified 03/20/20 12:45 trimethoprim Allergy Unknown rash Verified 03/20/20 12:45 hydrocodone AdvReac Mild RASH Verified 03/20/20 12:45 oxycodone AdvReac Mild N/V Verified 03/20/20 12:45 Percocet TABS Allergy Unknown Nausea Uncoded 03/20/20 12:45 Vicodin TABS Allergy Unknown Nausea Uncoded 03/20/20 12:45 Consultations 03/20/20 14:44 ED Decision to Admit Stat 03/20/20 17:12 Consult Case Management - Discharge Planning Routine Consult Associate Programmer Analyst Routine 03/21/20 08:51 Consult Neurology Routine 03/22/20 14:39 Consult Palliative Care Routine 03/22/20 17:53 Consult Case Management - Discharge Planning Routine Ordered Studies 03/20/20 11:59 CT angio head w con Stat CT angio neck with con Stat CT head/brain wo con Stat 03/20/20 18:54 CT head/brain wo con Routine 03/22/20 09:02 CT head/brain wo con Routine CXR x 3 Hospital Course (1) Comfort measures only status: Transitioned to comfort measures only as per my discussion with the patient's on the evening of 03/22 With hemorrhagic CVA with development of mild mass-effect along the left lateral ventricle and 1 mm of right midline shift slightly progressed from previous on repeat CT scan Patient with right-sided hemiparesis, severe expressive and receptive aphasia, development of restlessness, agitation, inability or refusal to eat/drink is clear that she does not want any artificial IV fluids or artificial hydration and would want to be made comfortable in this situation. As per my discussion with neurology, her prognosis for recovery is extremely poor. Continue morphine as needed for pain or breathlessness Continue lorazepam as needed for anxiety or agitation Add atropine drops as needed for excessive secretions Stop all lab draws, no further CT scans of the head, no Accu-Cheks or insulin, no oral or IV medications. No IV fluids or artificial nutrition requests that transfer back to [facility] be expedited if possible today on a IT AUDITOR status (2) Acute cerebral hemorrhage: Presents with acute aphasia secondary to hemorrhagic conversion of recent left ischemic CVA in the temporal lobe, found to have 9 x 8 mm hemorrhagic focus in the left temporal lobe as well as an interval development of a new hemorrhagic focus within left temporal lobe periventricular white matter measuring 8 x 5 mm with trace layering hemorrhage in the posterior horn left lateral ventricle No midline shift or hydrocephalus initially but now development of midline shift on 03/23 and with worsening mental status and worsening neurological deficits. Initially was in ICU on nicardipine drip for blood pressure control. Now weaned off nicardipine and was on IV Lopressor Per telestroke and neurosurgery recommendations no surgery recommended at this stage. 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: Known left MCA high-grade stenosis and recent ischemic CVA the week prior to admission (6) Hypertension: No further medications after transition to comfort measures (7) Transverse sinus 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 with associated venous collaterals throughout the left cerebral hemisphere Holding home antiplatelets as above for intracranial hemorrhage (8) Hypokalemia: Replaced with IV potassium chloride No further labs on IT AUDITOR (9) History of cerebrovascular accident (CVA) due to ischemia: History of recent left temporal ischemic CVA 1 week prior to admission Holding home antiplatelets and statin as above (10) DVT prophylaxis: Discontinue SCDs on IT AUDITOR Disposition-discharge to [facility] on IT AUDITOR Total Time Total Time Spent Total Time Spent (In Minutes): 35 min Total Time Includes: Examination of the Patient, Discharge Planning and Medication Reconciliation Discharge Plan Discharge Items Patient Disposition: Hospice - Medical Facility Reason For Visit: ACUTE HEMORRHAGIC TRANSFORMATION Discharge Diagnosis: Hemorrhagic conversion of CVA, Aphasia Condition on Discharge: Serious Activity: As commented below Lifting: None Bathing: No limitations Exercise/Sports: Rest today Non-emergency contact: Primary Care Provider Call non-emergency contact if: you have any medication questions, your symptoms worsen, your pain is not controlled, your pain is worsening, your pain is unusual for you and your pain is concerning for you Follow-up/Referrals: Tracy Amaro [Primary Care Provider] - Diet: Regular Diet Texture: Pureed (blended smooth) Diet Comment: as tolerated for comfort Addtl Attending Provider Instructions: Emma was admitted after suffering a hemorrhagic stroke and is now placed on comfort measures only. Please continue the [place] catheter for comfort. She can take Roxanol as needed for pain or breathlessness, and lorazepam SL for agitation or anxiety. Pending Studies at Discharge: No Stand-Alone Forms: My [facility] Skilled Items Patient informed of condition?: Yes DNR: Yes Discharge Level of Care: Other Communicable Disease: No Discharge Prognosis: Deteriorating Lines: None Urinary Catheter: Yes Medications and DC Order Prescriptions: New atropine 1 % Drops 4 drp PO Q4H PRN (Reason: secretions) Qty: 2 RF: 0 morphine concentrate 100 mg/5 mL (20 mg/mL) solution 5 mg PO Q1H PRN (Reason: pain or breathlessness) Qty: 15 RF: 0 lorazepam 1 mg tablet 1 mg sublingual Q6H PRN (Reason: anxiety or agitation) Qty: 5 RF: 0 Discontinued amlodipine 10 mg tablet 10 mg PO DAILY Qty: 90 RF: 3 losartan 50 mg tablet 50 mg PO DAILY Qty: 90 RF: 3 amoxicillin 500 mg tablet 500 mg PO UD PRN (Reason: Dentist Appointments) RF: 0 aspirin [Aspir-Low] 81 mg Tablet,Delayed Release (Dr/Ec) 81 mg PO DAILY RF: 0 atorvastatin 80 mg tablet 80 mg PO DAILY RF: 0 clopidogrel 75 mg tablet 75 mg PO DAILY RF: 0 Discharge Orders: Discharge Order (Routine); Ordered 03/23/20 Ordered By: Isha Camacho Admission Data Admit Date/Time: 03/20/20 15:12 Attending Provider: Isha Camacho Admit Provider: Lee Clifford Primary Care Provider: Tracy Amaro Other Providers: Lee Clifford ; Eloy Sage ; Rusty Haas ; Melissa Medley Other Interventions: Discharge Summary Assessment (RN) Last Done: 03/23/20 15:05 Coding Level of Care Code D/C Day Management >30 mins Diagnoses Comfort measures only status Z51.5 Acute cerebral hemorrhage I61.9 Hemorrhagic cerebrovascular accident (CVA) I61.9 Word finding difficulty R47.89 Stenosis of left middle cerebral artery I66.02 Hypertension I10 Hypertension type: unspecified Transverse sinus thrombosis G08 Hypokalemia E87.6 History of cerebrovascular accident (CVA) due to ischemia Z86.73 DVT prophylaxis Z29.9
--- NOTE | 2020-05-05 05:45 | Coding Query ---
CODING QUERY To promote full compliance with coding requirements relating to patient care, provider participation is requested in all cases of high lift operator uncertainty. Please assist us with the question(s) below: Coding Question: There is conflicting information in the record regarding the cause of the patients presenting symptoms, can you please clarify whether the patient had a new acute cerebral hemorrhage or if these hemorrhages were a sequelae of the previous CVA or both. Thank you so much for your help! Have a great day! ( ) A new Acute hemorrhagic CVA ( ) Sequela of a the previous CVA (x ) BOTH: a new acute hemorrhagic CVA and a sequela of the previous CVA ( ) Other, please specify Thank you! Cheyenne Marvin Principal Diagnosis: "that condition established after study, to be chiefly responsible for occasioning the admission of the patient to the hospital for care." Co-Existing Principal Diagnosis: "when two or more diagnoses equally meet the criteria for principal diagnosis as determined by the circumstances of admission, diagnostic work up, and/or therapy provided, and the Alphabetic Index, Tabular List, or another coding guideline does not provide sequencing direction, any one of the diagnoses may be sequenced first." "When the physician has documented what appears to be a current diagnosis in the body of the record, but has not included the diagnosis in the final diagnostic statement, the physician should be asked whether the diagnosis should be added." (Source Coding Clinic 2 QTR90. p3-4) BERNA[facility]TE
== END 2020-03-23 17:36 | disposition hospice, inpatient (51) | DRG 65 ==
LOC: ED 12:04 → SUATTDRO 15:12 → 1E 15:12 → 2N 03-22 13:17